=== PATIENT | female | born 2000 | race Caucasian/White ===

== ENCOUNTER 2019-05-06 15:17 | Inpatient (IN) ==
[2019-05-06] MEDS ORDERED: ONDANSETRON INJ 2 MG/ML 2 ML VIAL IV STA ×2 (16:05→21:04)
[2019-05-06] MEDS ORDERED: SODIUM CHLORIDE 0.9% 1000ML 1,000 ML IV SCH (16:15)
--- NOTE | 2019-05-06 16:37 | XRay Report ---
XR chest 1V portable CLINICAL HISTORY: Chest pain status post trauma COMPARISON STUDY: No previous studies for comparison. FINDINGS: The cardiac and mediastinal contours are normal. There is no evidence of focal pulmonary co nsolidation. There is no evidence of failure. No pleural effusions are visualized.[No pneumothorax is visualized. IMPRESSION: No active disease in the chest. Electronically signed by: Oliver Gilliland M.D. 05/06/2019 4:35 PM
--- NOTE | 2019-05-06 16:45 | CT Scan Report ---
CT OF THE HEAD WITHOUT CONTRAST CLINICAL HISTORY: Trauma. COMPARISON STUDY: No previous studies for comparison. CT DOSE: 537.48 mGy.cm TECHNIQUE: Helical axial images of the head were obtained without IV contrast. Automated exposure con trol was utilized for the study. A dose lowering technique was utilized adhering to the principles o f ALARA. FINDINGS: No acute intracranial hemorrhage, midline shift or mass effect is present. The ventricular system is unremarkable. The basilar cisterns are patent. No extra-axial collections are present. Ther e are no findings to suggest acute dural sinus thrombosis or acute territorial infarct. No chondral f racture is identified. Small amount of fluid within the left mastoid air cells is noted. IMPRESSION: 1. No acute intracranial findings. 2. No calvarial fracture. 3. Small amount of fluid within the left mastoid air cells. Electronically signed by: Osbaldo Castillo M.D. 05/06/2019 4:44 PM
[2019-05-06] MEDS ORDERED: LORazepam 2 MG/4 ML VIAL IV STA ×2 (17:08→21:53)
[2019-05-06 17:24] LABS: Albumin Level 3.1 gm/dl (3.4-5.0); Calcium 10.4 mg/dl (8.5-10.1); Creatinine Clr Calc Pharmacy 91.9 ml/min; Est GFR (African American) 94.4; Est GFR (Non-African American) 81.5; Potassium 3.5 mmol/L (3.5-5.1)
[2019-05-06 17:27] LABS: Albumin Globulin Ratio 0.8 (0.9-2); Bilirubin,Total 1.7 mg/dl (0.2-1); Globulin 4.1 gm/dl (2.5-4.0); Total Protein 7.2 gm/dl (6.4-8.2)
[2019-05-06] MEDS ORDERED: SODIUM CHLORIDE 0.9% 1000ML 1,000 ML IV ONE (17:29)
[2019-05-06 17:32] LABS: Pregnancy Test, Serum Negative (Negative)
[2019-05-06 17:35] LABS: Hematocrit (blood only) 40.1 % (37-47); Hemoglobin 14.9 g/dL (12.0-16.0); Mean Corpuscular Hgb Conc 37.2 g/dL (32-36); Mean Corpuscular Volume 83.5 fL (80-100); Platelet Count 386 K/uL (130-400); RDW Coefficient of Variation 12.6 % (11.5-14.5); White Blood Count 24.92 K/uL (4.8-10.8)
[2019-05-06 17:36] LABS: Basophils # (auto) 0.01 K/uL (0-0.2); Echinocytes 1+; Immature Granulocytes % (auto) 0.4 %; Lymphocytes # (auto) 1.29 K/uL (1.2-3.4); Lymphocytes % (auto) 5.2 %; Monocytes # (auto) 1.74 K/uL (0.11-0.59); Neutrophils # (auto) 21.78 K/uL (1.4-6.5); Neutrophils % (auto) 87.4 %
[2019-05-06] MEDS ORDERED: BACITRACIN OINT 15 GM TUBE ONE (20:06)
[2019-05-06 22:05] LABS: Appearance Urine Clear (Clear); Bacteria Urine Automated Negative (Negative); Bilirubin Urine Negative (Negative); Blood Urine 1+ (Negative); Color Urine Yellow; Glucose Urine UA Negative (Negative); Leukocyte Esterase Urine Negative (Negative); Nitrite Urine Negative (Negative); Protein Urine Negative (Negative); RBC Urine Automated 0-4 /hpf (0-4); Urobilinogen Urine Negative (Negative)
[2019-05-06 22:09] LABS: Ketones Urine 3+ (Negative)
[2019-05-06 22:12] LABS: Amphetamines+Metham, Urine Neg (Neg); Barbiturates, Urine Neg (Neg); Benzodiazepine, Urine Neg (Neg); Cocaine, Urine Neg (Neg); MDMA (Ecstacy), Urine Neg (Neg); Methadone, Urine Neg (Neg); Opiate, Urine Neg (Neg); Phencyclidine, Urine Neg (Neg)
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
[2019-05-06] MEDS ORDERED: DIPHTHERIA/TETANUS/PERTUSSIS 0.5 ML SYR/VIAL IM ONE (23:37)
[2019-05-06] MEDS ORDERED: SODIUM CHLORIDE 0.9% 1000ML 2,000 ML IV ONE (23:37)
[2019-05-06 23:49] LABS: Thyroid Stimulating Hormone 0.449 uIu/ml (0.300-4.500)
[2019-05-07] MEDS ORDERED: PIPERACILL/TAZOBAC CONSULT ACTIVE PRN (01:13)
[2019-05-07] MEDS ORDERED: PIPERACILLIN/TAZOBACTAM 3.375 GM in DEXTROSE 5% 100 ML IV ONE (01:13)
[2019-05-07] MEDS ORDERED: VANCOMYCIN HCL 1,000 MG in SODIUM CHLORIDE 0.9% 250 ML IV SCH (01:13)
[2019-05-07] MEDS ORDERED: VANCOMYCIN CONSULT ACTIVE PRN (01:13)
[2019-05-07] MEDS ORDERED: ICU PROTOCOL FOR HYPERGLYCEMIA PRN (01:13)
[2019-05-07 01:14] LABS: Base Excess VBG -6.3 mEq/L; pH VBG 7.41 (7.36-7.41)
[2019-05-07 01:17] LABS: D Dimer 3730 ug/L FEU (0-500)
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
[2019-05-07] MEDS ORDERED: VANCOMYCIN HCL 2,000 MG in SODIUM CHLORIDE 0.9% 500 ML IV ONE (02:15)
[2019-05-07 02:27] LABS: Basophils # (auto) 0.01 K/uL (0-0.2); Basophils % (auto) 0.1 %; Hematocrit (blood only) 33.4 % (37-47); Hemoglobin 12.2 g/dL (12.0-16.0); Immature Granulocytes # (auto) 0.08 K/uL (0.00-0.02); Immature Granulocytes % (auto) 0.4 %; Lymphocytes # (auto) 0.87 K/uL (1.2-3.4); Lymphocytes % (auto) 4.4 %; Mean Corpuscular Hemoglobin 31.1 pg (25-34); Mean Corpuscular Hgb Conc 36.5 g/dL (32-36); Mean Corpuscular Volume 85.2 fL (80-100); Mean Platelet Volume 11.3 fL (7.4-10.4); Monocytes # (auto) 1.95 K/uL (0.11-0.59); Monocytes % (auto) 9.8 %; Neutrophils # (auto) 17.08 K/uL (1.4-6.5); Neutrophils % (auto) 85.3 %; Platelet Count 297 K/uL (130-400); RDW Coefficient of Variation 12.7 % (11.5-14.5); RDW Standard Deviation 38.6 fL (36.4-46.3); Red Blood Count 3.92 M/uL (4.2-5.4); White Blood Count 19.99 K/uL (4.8-10.8)
[2019-05-07 02:54] LABS: Prothrombin Time 10.6 Seconds (9.0-12.0)
[2019-05-07 03:12] LABS: Acetaminophen 4 ug/ml (10-30); Lyme Ab IgG w/WB Rflx Negative (Negative); Lyme Ab IgM w/WB Rflx Negative (Negative); Salicylate < 1.7 mg/dl (2.8-20)
[2019-05-07 03:13] LABS: Chloride Random Urine < 10 mmol/L; Sodium Random Urine 9 mmol/L
[2019-05-07 03:23] LABS: Alanine Aminotransferase 71 U/L (12-78); Albumin Level 2.4 gm/dl (3.4-5.0); Aspartate Aminotransferase 116 U/L (15-37); BUN Creatinine Ratio 44.3 (10-20); Blood Urea Nitrogen 29 mg/dl (7-18); Calcium 7.9 mg/dl (8.5-10.1); Carbon Dioxide 16 mmol/L (21-32); Chloride 101 mmol/L (98-107); Creatinine Clr Calc Pharmacy 147.3 ml/min; Est GFR (African American) 146.4; Est GFR (Non-African American) 126.3; Glucose 84 mg/dl (70-99); Sodium 133 mmol/L (136-145)
[2019-05-07 03:34] LABS: Hepatitis B Surface Antigen Neg (Neg)
[2019-05-07 03:36] LABS: Albumin Globulin Ratio 0.7 (0.9-2); Alkaline Phosphatase 96 U/L (45-117); Bilirubin,Total 0.9 mg/dl (0.2-1); Creatine Kinase 1630 U/L (26-192); Globulin 3.3 gm/dl (2.5-4.0); Total Protein 5.7 gm/dl (6.4-8.2); Troponin I < 0.015 ng/ml (0-0.045)
[2019-05-07 03:42] LABS: Fibrinogen 433 mg/dl (184-400)
--- NOTE | 2019-05-07 03:56 | History & Physical Report ---
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 (45-117) U/L Ammonia (11-32) umol/L Lactate Dehydrogenase (84-246) U/L Total Creatine Kinase (26-192) U/L Troponin I (0-0.045) ng/ml Total Protein (6.4-8.2) gm/dl Albumin (3.4-5.0) gm/dl Globulin (2.5-4.0) gm/dl Albumin/Globulin Ratio (0.9-2) Serotonin Procalcitonin (0-0.5) ng/ml TSH (0.300-4.500) uIu/ml HCG, Qual (Negative) Urine Color Urine Appearance (Clear) Urine pH (4.5-7.5) Ur Specific [place] (1.000-1.030) Urine Protein (Negative) Urine Glucose (UA) (Negative) Urine Ketones (Negative) Urine Blood (Negative) Urine Nitrite (Negative) Urine Bilirubin (Negative) Urine Urobilinogen (Negative) Ur Leukocyte Esterase (Negative) Urine WBC (Auto) (0-5) /hpf Urine RBC (Auto) (0-4) /hpf U Hyaline Cast (Auto) (0-5) /lpf U Epithel Cells (Auto) (0-5) /lpf Urine Bacteria (Auto) (Negative) Urine Osmolality (500-800) mOsm/kg Ur Random Sodium mmol/L Ur Random Chloride mmol/L Nasal Screen MRSA (PCR) Pending Salicylates (2.8-20) mg/dl Urine Opiates Screen (Neg) Ur Methadone, Qual (Neg) Acetaminophen (10-30) ug/ml Urine Barbiturates (Neg) Ur Phencyclidine (PCP) (Neg) U Amphetamin/Meth Scrn (Neg) MDMA (Ecstasy) Screen (Neg) U Benzodiazepines Scrn (Neg) [place] (0.6-1.2) mmol/L Ur Cocaine Metabolite (Neg) U Marijuana (THC) Screen (Neg) Ethyl Alcohol mg/dL (0-3) mg/dl Babesia microti IgG Ab Babesia microti IgM Ab Babesia Interpretation Lyme Disease IgG Ab (Negative) Lyme Disease IgM Ab (Negative) C.trachomatis RNA Hepatitis A IgM Ab Hep Bs Antigen (Neg) Hep B Core IgM Ab Hepatitis C Antibody (Neg) N.gonorrhoeae RNA 05/07/19 05/07/19 05/07/19 Range/Units 00:45 00:45 00:45 WBC (4.8-10.8) K/uL RBC (4.2-5.4) M/uL Hgb (12.0-16.0) g/dL Hct (37-47) % MCV (80-100) fL MCH (25-34) pg MCHC (32-36) g/dL RDW Std Deviation (36.4-46.3) fL RDW Coeff of Ilene (11.5-14.5) % Plt Count (130-400) K/uL MPV (7.4-10.4) fL Immature Gran % (Auto) % Neut % (Auto) % Lymph % (Auto) % [place] % (Auto) % Eos % (Auto) % Baso % (Auto) % Immature Gran # (Auto) (0.00-0.02) K/uL Neut # (Auto) (1.4-6.5) K/uL Lymph # (Auto) (1.2-3.4) K/uL [place] # (Auto) (0.11-0.59) K/uL Eos # (Auto) (0-0.5) K/uL Baso # (Auto) (0-0.2) K/uL Echinocytes PT (9.0-12.0) Seconds INR (0.9-1.1) Fibrinogen (184-400) mg/dl D-Dimer 3730 H* (0-500) ug/L FEU VBG pH 7.41 (7.36-7.41) VBG pCO2 28 L (38-50) mmHg VBG pO2 49 mmHg VBG HCO3 17 mmol/L VBG O2 Saturation 83.0 % VBG Base Excess -6.3 mEq/L Barometric Pressure 734.8 mm/Hg Sodium (136-145) mmol/L Potassium (3.5-5.1) mmol/L Chloride (98-107) mmol/L Carbon Dioxide (21-32) mmol/L Anion Gap (3-11) BUN (7-18) mg/dl Creatinine (0.6-1.2) mg/dl Est Cr Clr Drug Dosing ml/min Est GFR ( Amer) Est GFR (Non-Af Amer) BUN/Creatinine Ratio (10-20) Glucose (70-99) mg/dl POC Glucose (70-99) Osmolality (280-300) mOsm/kg Lactate (0.4-2.0) mmol/L Calcium (8.5-10.1) mg/dl Magnesium (1.8-2.4) mg/dl Total Bilirubin (0.2-1) mg/dl AST (15-37) U/L ALT (12-78) U/L Alkaline Phosphatase (45-117) U/L Ammonia 20.0 (11-32) umol/L Lactate Dehydrogenase (84-246) U/L Total Creatine Kinase (26-192) U/L Troponin I (0-0.045) ng/ml Total Protein (6.4-8.2) gm/dl Albumin (3.4-5.0) gm/dl Globulin (2.5-4.0) gm/dl Albumin/Globulin Ratio (0.9-2) Serotonin Procalcitonin (0-0.5) ng/ml TSH (0.300-4.500) uIu/ml HCG, Qual (Negative) Urine Color Urine Appearance (Clear) Urine pH (4.5-7.5) Ur Specific [place] (1.000-1.030) Urine Protein (Negative) Urine Glucose (UA) (Negative) Urine Ketones (Negative) Urine Blood (Negative) Urine Nitrite (Negative) Urine Bilirubin (Negative) Urine Urobilinogen (Negative) Ur Leukocyte Esterase (Negative) Urine WBC (Auto) (0-5) /hpf Urine RBC (Auto) (0-4) /hpf U Hyaline Cast (Auto) (0-5) /lpf U Epithel Cells (Auto) (0-5) /lpf Urine Bacteria (Auto) (Negative) Urine Osmolality (500-800) mOsm/kg Ur Random Sodium mmol/L Ur Random Chloride mmol/L Nasal Screen MRSA (PCR) Salicylates (2.8-20) mg/dl Urine Opiates Screen (Neg) Ur Methadone, Qual (Neg) Acetaminophen (10-30) ug/ml Urine Barbiturates (Neg) Ur Phencyclidine (PCP) (Neg) U Amphetamin/Meth Scrn (Neg) MDMA (Ecstasy) Screen (Neg) U Benzodiazepines Scrn (Neg) [address] [place] (0.6-1.2) mmol/L Ur Cocaine Metabolite (Neg) U Marijuana (THC) Screen (Neg) Ethyl Alcohol mg/dL (0-3) mg/dl Babesia microti IgG Ab Babesia microti IgM Ab Babesia Interpretation Lyme Disease IgG Ab (Negative) Lyme Disease IgM Ab (Negative) C.trachomatis RNA Hepatitis A IgM Ab Hep Bs Antigen (Neg) Hep B Core IgM Ab Hepatitis C Antibody (Neg) N.gonorrhoeae RNA 05/06/19 05/06/19 05/06/19 Range/Units 21:34 21:34 21:34 WBC (4.8-10.8) K/uL RBC (4.2-5.4) M/uL Hgb (12.0-16.0) g/dL Hct (37-47) % MCV (80-100) fL MCH (25-34) pg MCHC (32-36) g/dL RDW Std Deviation (36.4-46.3) fL RDW Coeff of Ilene (11.5-14.5) % Plt Count (130-400) K/uL MPV (7.4-10.4) fL Immature Gran % (Auto) % Neut % (Auto) % Lymph % (Auto) % [place] % (Auto) % Eos % (Auto) % Baso % (Auto) % Immature Gran # (Auto) (0.00-0.02) K/uL Neut # (Auto) (1.4-6.5) K/uL Lymph # (Auto) (1.2-3.4) K/uL [place] # (Auto) (0.11-0.59) K/uL Eos # (Auto) (0-0.5) K/uL Baso # (Auto) (0-0.2) K/uL Echinocytes PT (9.0-12.0) Seconds INR (0.9-1.1) Fibrinogen (184-400) mg/dl D-Dimer (0-500) ug/L FEU VBG pH (7.36-7.41) VBG pCO2 (38-50) mmHg VBG pO2 mmHg VBG HCO3 mmol/L VBG O2 Saturation % VBG Base Excess mEq/L Barometric Pressure mm/Hg Sodium (136-145) mmol/L Potassium (3.5-5.1) mmol/L Chloride (98-107) mmol/L Carbon Dioxide (21-32) mmol/L Anion Gap (3-11) BUN (7-18) mg/dl Creatinine (0.6-1.2) mg/dl Est Cr Clr Drug Dosing ml/min Est GFR ( Amer) Est GFR (Non-Af Amer) BUN/Creatinine Ratio (10-20) Glucose (70-99) mg/dl POC Glucose (70-99) Osmolality (280-300) mOsm/kg Lactate (0.4-2.0) mmol/L Calcium (8.5-10.1) mg/dl Magnesium (1.8-2.4) mg/dl Total Bilirubin (0.2-1) mg/dl AST (15-37) U/L ALT (12-78) U/L Alkaline Phosphatase (45-117) U/L Ammonia (11-32) umol/L Lactate Dehydrogenase (84-246) U/L Total Creatine Kinase (26-192) U/L Troponin I (0-0.045) ng/ml Total Protein (6.4-8.2) gm/dl Albumin (3.4-5.0) gm/dl Globulin (2.5-4.0) gm/dl Albumin/Globulin Ratio (0.9-2) Serotonin Procalcitonin (0-0.5) ng/ml TSH (0.300-4.500) uIu/ml HCG, Qual (Negative) Urine Color Yellow Urine Appearance Clear (Clear) Urine pH 6.0 (4.5-7.5) Ur Specific [place] 1.020 (1.000-1.030) Urine Protein Negative (Negative) Urine Glucose (UA) Negative (Negative) Urine Ketones 3+ H (Negative) Urine Blood 1+ H (Negative) Urine Nitrite Negative (Negative) Urine Bilirubin Negative (Negative) Urine Urobilinogen Negative (Negative) Ur Leukocyte Esterase Negative (Negative) Urine WBC (Auto) 1-5 (0-5) /hpf Urine RBC (Auto) 0-4 (0-4) /hpf U Hyaline Cast (Auto) 5-10 H (0-5) /lpf U Epithel Cells (Auto) 10-20 H (0-5) /lpf Urine Bacteria (Auto) Negative (Negative) Urine Osmolality 553 (500-800) mOsm/kg Ur Random Sodium 9 mmol/L Ur Random Chloride < 10 mmol/L Nasal Screen MRSA (PCR) Salicylates (2.8-20) mg/dl Urine Opiates Screen (Neg) Ur Methadone, Qual (Neg) Acetaminophen (10-30) ug/ml Urine Barbiturates (Neg) Ur Phencyclidine (PCP) (Neg) U Amphetamin/Meth Scrn (Neg) MDMA (Ecstasy) Screen (Neg) U Benzodiazepines Scrn (Neg) [address] [place] (0.6-1.2) mmol/L Ur Cocaine Metabolite (Neg) U Marijuana (THC) Screen (Neg) Ethyl Alcohol mg/dL (0-3) mg/dl Babesia microti IgG Ab Babesia microti IgM Ab Babesia Interpretation Lyme Disease IgG Ab (Negative) Lyme Disease IgM Ab (Negative) C.trachomatis RNA Hepatitis A IgM Ab Hep Bs Antigen (Neg) Hep B Core IgM Ab Hepatitis C Antibody (Neg) N.gonorrhoeae RNA 05/06/19 05/06/19 05/06/19 Range/Units 21:34 16:52 16:48 WBC (4.8-10.8) K/uL RBC (4.2-5.4) M/uL Hgb (12.0-16.0) g/dL Hct (37-47) % MCV (80-100) fL MCH (25-34) pg MCHC (32-36) g/dL RDW Std Deviation (36.4-46.3) fL RDW Coeff of Ilene (11.5-14.5) % Plt Count (130-400) K/uL MPV (7.4-10.4) fL Immature Gran % (Auto) % Neut % (Auto) % Lymph % (Auto) % [place] % (Auto) % Eos % (Auto) % Baso % (Auto) % Immature Gran # (Auto) (0.00-0.02) K/uL Neut # (Auto) (1.4-6.5) K/uL Lymph # (Auto) (1.2-3.4) K/uL [place] # (Auto) (0.11-0.59) K/uL Eos # (Auto) (0-0.5) K/uL Baso # (Auto) (0-0.2) K/uL Echinocytes PT (9.0-12.0) Seconds INR (0.9-1.1) Fibrinogen (184-400) mg/dl D-Dimer (0-500) ug/L FEU VBG pH (7.36-7.41) VBG pCO2 (38-50) mmHg VBG pO2 mmHg VBG HCO3 mmol/L VBG O2 Saturation % VBG Base Excess mEq/L Barometric Pressure mm/Hg Sodium (136-145) mmol/L Potassium (3.5-5.1) mmol/L Chloride (98-107) mmol/L Carbon Dioxide (21-32) mmol/L Anion Gap (3-11) BUN (7-18) mg/dl Creatinine (0.6-1.2) mg/dl Est Cr Clr Drug Dosing ml/min Est GFR ( Amer) Est GFR (Non-Af Amer) BUN/Creatinine Ratio (10-20) Glucose (70-99) mg/dl POC Glucose (70-99) Osmolality 273 L (280-300) mOsm/kg Lactate 2.6 H* (0.4-2.0) mmol/L Calcium (8.5-10.1) mg/dl Magnesium (1.8-2.4) mg/dl Total Bilirubin (0.2-1) mg/dl AST (15-37) U/L ALT (12-78) U/L Alkaline Phosphatase (45-117) U/L Ammonia (11-32) umol/L Lactate Dehydrogenase (84-246) U/L Total Creatine Kinase (26-192) U/L Troponin I (0-0.045) ng/ml Total Protein (6.4-8.2) gm/dl Albumin (3.4-5.0) gm/dl Globulin (2.5-4.0) gm/dl Albumin/Globulin Ratio (0.9-2) Serotonin Procalcitonin (0-0.5) ng/ml TSH (0.300-4.500) uIu/ml HCG, Qual (Negative) Urine Color Urine Appearance (Clear) Urine pH (4.5-7.5) Ur Specific [place] (1.000-1.030) Urine Protein (Negative) Urine Glucose (UA) (Negative) Urine Ketones (Negative) Urine Blood (Negative) Urine Nitrite (Negative) Urine Bilirubin (Negative) Urine Urobilinogen (Negative) Ur Leukocyte Esterase (Negative) Urine WBC (Auto) (0-5) /hpf Urine RBC (Auto) (0-4) /hpf U Hyaline Cast (Auto) (0-5) /lpf U Epithel Cells (Auto) (0-5) /lpf Urine Bacteria (Auto) (Negative) Urine Osmolality (500-800) mOsm/kg Ur Random Sodium mmol/L Ur Random Chloride mmol/L Nasal Screen MRSA (PCR) Salicylates (2.8-20) mg/dl Urine Opiates Screen Neg (Neg) Ur Methadone, Qual Neg (Neg) Acetaminophen (10-30) ug/ml Urine Barbiturates Neg (Neg) Ur Phencyclidine (PCP) Neg (Neg) U Amphetamin/Meth Scrn Neg (Neg) MDMA (Ecstasy) Screen Neg (Neg) U Benzodiazepines Scrn Neg (Neg) [address] [place] [address] [place] (0.6-1.2) mmol/L Ur Cocaine Metabolite Neg (Neg) U Marijuana (THC) Screen Neg (Neg) Ethyl Alcohol mg/dL (0-3) mg/dl Babesia microti IgG Ab Babesia microti IgM Ab Babesia Interpretation Lyme Disease IgG Ab (Negative) Lyme Disease IgM Ab (Negative) C.trachomatis RNA Hepatitis A IgM Ab Hep Bs Antigen (Neg) Hep B Core IgM Ab Hepatitis C Antibody (Neg) N.gonorrhoeae RNA 05/06/19 05/06/19 05/06/19 Range/Units 16:48 16:48 16:48 WBC (4.8-10.8) K/uL RBC (4.2-5.4) M/uL Hgb (12.0-16.0) g/dL Hct (37-47) % MCV (80-100) fL MCH (25-34) pg MCHC (32-36) g/dL RDW Std Deviation (36.4-46.3) fL RDW Coeff of Ilene (11.5-14.5) % Plt Count (130-400) K/uL MPV (7.4-10.4) fL Immature Gran % (Auto) % Neut % (Auto) % Lymph % (Auto) % [place] % (Auto) % Eos % (Auto) % Baso % (Auto) % Immature Gran # (Auto) (0.00-0.02) K/uL Neut # (Auto) (1.4-6.5) K/uL Lymph # (Auto) (1.2-3.4) K/uL [place] # (Auto) (0.11-0.59) K/uL Eos # (Auto) (0-0.5) K/uL Baso # (Auto) (0-0.2) K/uL Echinocytes PT (9.0-12.0) Seconds INR (0.9-1.1) Fibrinogen (184-400) mg/dl D-Dimer (0-500) ug/L FEU VBG pH (7.36-7.41) VBG pCO2 (38-50) mmHg VBG pO2 mmHg VBG HCO3 mmol/L VBG O2 Saturation % VBG Base Excess mEq/L Barometric Pressure mm/Hg Sodium (136-145) mmol/L Potassium (3.5-5.1) mmol/L Chloride (98-107) mmol/L Carbon Dioxide (21-32) mmol/L Anion Gap (3-11) BUN (7-18) mg/dl Creatinine (0.6-1.2) mg/dl Est Cr Clr Drug Dosing ml/min Est GFR ( Amer) Est GFR (Non-Af Amer) BUN/Creatinine Ratio (10-20) Glucose (70-99) mg/dl POC Glucose (70-99) Osmolality (280-300) mOsm/kg Lactate (0.4-2.0) mmol/L Calcium (8.5-10.1) mg/dl Magnesium (1.8-2.4) mg/dl Total Bilirubin (0.2-1) mg/dl AST (15-37) U/L ALT (12-78) U/L Alkaline Phosphatase (45-117) U/L Ammonia (11-32) umol/L Lactate Dehydrogenase (84-246) U/L Total Creatine Kinase 2488 H (26-192) U/L Troponin I (0-0.045) ng/ml Total Protein (6.4-8.2) gm/dl Albumin (3.4-5.0) gm/dl Globulin (2.5-4.0) gm/dl Albumin/Globulin Ratio (0.9-2) Serotonin Procalcitonin (0-0.5) ng/ml TSH 0.449 (0.300-4.500) uIu/ml HCG, Qual Negative (Negative) Urine Color Urine Appearance (Clear) Urine pH (4.5-7.5) Ur Specific [place] (1.000-1.030) Urine Protein (Negative) Urine Glucose (UA) (Negative) Urine Ketones (Negative) Urine Blood (Negative) Urine Nitrite (Negative) Urine Bilirubin (Negative) Urine Urobilinogen (Negative) Ur Leukocyte Esterase (Negative) Urine WBC (Auto) (0-5) /hpf Urine RBC (Auto) (0-4) /hpf U Hyaline Cast (Auto) (0-5) /lpf U Epithel Cells (Auto) (0-5) /lpf Urine Bacteria (Auto) (Negative) Urine Osmolality (500-800) mOsm/kg Ur Random Sodium mmol/L Ur Random Chloride mmol/L Nasal Screen MRSA (PCR) Salicylates (2.8-20) mg/dl Urine Opiates Screen (Neg) Ur Methadone, Qual (Neg) Acetaminophen (10-30) ug/ml Urine Barbiturates (Neg) Ur Phencyclidine (PCP) (Neg) U Amphetamin/Meth Scrn (Neg) MDMA (Ecstasy) Screen (Neg) U Benzodiazepines Scrn (Neg) [address] [place] 0.5 L (0.6-1.2) mmol/L Ur Cocaine Metabolite (Neg) U Marijuana (THC) Screen (Neg) Ethyl Alcohol mg/dL (0-3) mg/dl Babesia microti IgG Ab Babesia microti IgM Ab Babesia Interpretation Lyme Disease IgG Ab (Negative) Lyme Disease IgM Ab (Negative) C.trachomatis RNA Hepatitis A IgM Ab Hep Bs Antigen (Neg) Hep B Core IgM Ab Hepatitis C Antibody (Neg) N.gonorrhoeae RNA 05/06/19 05/06/19 05/06/19 Range/Units 16:48 16:48 16:48 WBC 24.92 H (4.8-10.8) K/uL RBC 4.80 (4.2-5.4) M/uL Hgb 14.9 (12.0-16.0) g/dL Hct 40.1 (37-47) % MCV 83.5 (80-100) fL MCH 31.0 (25-34) pg MCHC 37.2 H (32-36) g/dL RDW Std Deviation 38.0 (36.4-46.3) fL RDW Coeff of Ilene 12.6 (11.5-14.5) % Plt Count 386 (130-400) K/uL MPV 12.0 H (7.4-10.4) fL Immature Gran % (Auto) 0.4 % Neut % (Auto) 87.4 % Lymph % (Auto) 5.2 % [place] % (Auto) 7.0 % Eos % (Auto) 0.0 % Baso % (Auto) 0.0 % Immature Gran # (Auto) 0.10 H (0.00-0.02) K/uL Neut # (Auto) 21.78 H (1.4-6.5) K/uL Lymph # (Auto) 1.29 (1.2-3.4) K/uL [place] # (Auto) 1.74 H (0.11-0.59) K/uL Eos # (Auto) 0.00 (0-0.5) K/uL Baso # (Auto) 0.01 (0-0.2) K/uL Echinocytes 1+ PT (9.0-12.0) Seconds INR (0.9-1.1) Fibrinogen (184-400) mg/dl D-Dimer (0-500) ug/L FEU VBG pH (7.36-7.41) VBG pCO2 (38-50) mmHg VBG pO2 mmHg VBG HCO3 mmol/L VBG O2 Saturation % VBG Base Excess mEq/L Barometric Pressure mm/Hg Sodium 122 L (136-145) mmol/L Potassium 3.5 (3.5-5.1) mmol/L Chloride 86 L (98-107) mmol/L Carbon Dioxide 14 L (21-32) mmol/L Anion Gap 22.0 H (3-11) BUN 59 H (7-18) mg/dl Creatinine 0.99 (0.6-1.2) mg/dl Est Cr Clr Drug Dosing 91.9 ml/min Est GFR ( Amer) 94.4 Est GFR (Non-Af Amer) 81.5 BUN/Creatinine Ratio 60.0 H (10-20) Glucose 92 (70-99) mg/dl POC Glucose (70-99) Osmolality (280-300) mOsm/kg Lactate (0.4-2.0) mmol/L Calcium 10.4 H (8.5-10.1) mg/dl Magnesium (1.8-2.4) mg/dl Total Bilirubin 1.7 H (0.2-1) mg/dl AST 150 H (15-37) U/L ALT 89 H (12-78) U/L Alkaline Phosphatase 147 H (45-117) U/L Ammonia (11-32) umol/L Lactate Dehydrogenase (84-246) U/L Total Creatine Kinase (26-192) U/L Troponin I (0-0.045) ng/ml Total Protein 7.2 (6.4-8.2) gm/dl Albumin 3.1 L (3.4-5.0) gm/dl Globulin 4.1 H (2.5-4.0) gm/dl Albumin/Globulin Ratio 0.8 L (0.9-2) Serotonin Procalcitonin (0-0.5) ng/ml TSH (0.300-4.500) uIu/ml HCG, Qual (Negative) Urine Color Urine Appearance (Clear) Urine pH (4.5-7.5) Ur Specific [place] (1.000-1.030) Urine Protein (Negative) Urine Glucose (UA) (Negative) Urine Ketones (Negative) Urine Blood (Negative) Urine Nitrite (Negative) Urine Bilirubin (Negative) Urine Urobilinogen (Negative) Ur Leukocyte Esterase (Negative) Urine WBC (Auto) (0-5) /hpf Urine RBC (Auto) (0-4) /hpf U Hyaline Cast (Auto) (0-5) /lpf U Epithel Cells (Auto) (0-5) /lpf Urine Bacteria (Auto) (Negative) Urine Osmolality (500-800) mOsm/kg Ur Random Sodium mmol/L Ur Random Chloride mmol/L Nasal Screen MRSA (PCR) Salicylates (2.8-20) mg/dl Urine Opiates Screen (Neg) Ur Methadone, Qual (Neg) Acetaminophen (10-30) ug/ml Urine Barbiturates (Neg) Ur Phencyclidine (PCP) (Neg) U Amphetamin/Meth Scrn (Neg) MDMA (Ecstasy) Screen (Neg) U Benzodiazepines Scrn (Neg) [address] [place] [address] [place] (0.6-1.2) mmol/L Ur Cocaine Metabolite (Neg) U Marijuana (THC) Screen (Neg) Ethyl Alcohol mg/dL < 3.0 (0-3) mg/dl Babesia microti IgG Ab Babesia microti IgM Ab Babesia Interpretation Lyme Disease IgG Ab (Negative) Lyme Disease IgM Ab (Negative) C.trachomatis RNA Hepatitis A IgM Ab Hep Bs Antigen (Neg) Hep B Core IgM Ab Hepatitis C Antibody (Neg) N.gonorrhoeae RNA 05/06/19 Range/Units 00:45 WBC (4.8-10.8) K/uL RBC (4.2-5.4) M/uL Hgb (12.0-16.0) g/dL Hct (37-47) % MCV (80-100) fL MCH (25-34) pg MCHC (32-36) g/dL RDW Std Deviation (36.4-46.3) fL RDW Coeff of Ilene (11.5-14.5) % Plt Count (130-400) K/uL MPV (7.4-10.4) fL Immature Gran % (Auto) % Neut % (Auto) % Lymph % (Auto) % [place] % (Auto) % Eos % (Auto) % Baso % (Auto) % Immature Gran # (Auto) (0.00-0.02) K/uL Neut # (Auto) (1.4-6.5) K/uL Lymph # (Auto) (1.2-3.4) K/uL [place] # (Auto) (0.11-0.59) K/uL Eos # (Auto) (0-0.5) K/uL Baso # (Auto) (0-0.2) K/uL Echinocytes PT (9.0-12.0) Seconds INR (0.9-1.1) Fibrinogen (184-400) mg/dl D-Dimer (0-500) ug/L FEU VBG pH (7.36-7.41) VBG pCO2 (38-50) mmHg VBG pO2 mmHg VBG HCO3 mmol/L VBG O2 Saturation % VBG Base Excess mEq/L Barometric Pressure mm/Hg Sodium (136-145) mmol/L Potassium (3.5-5.1) mmol/L Chloride (98-107) mmol/L Carbon Dioxide (21-32) mmol/L Anion Gap (3-11) BUN (7-18) mg/dl Creatinine (0.6-1.2) mg/dl Est Cr Clr Drug Dosing ml/min Est GFR ( Amer) Est GFR (Non-Af Amer) BUN/Creatinine Ratio (10-20) Glucose (70-99) mg/dl POC Glucose (70-99) Osmolality (280-300) mOsm/kg Lactate (0.4-2.0) mmol/L Calcium (8.5-10.1) mg/dl Magnesium (1.8-2.4) mg/dl Total Bilirubin (0.2-1) mg/dl AST (15-37) U/L ALT (12-78) U/L Alkaline Phosphatase (45-117) U/L Ammonia (11-32) umol/L Lactate Dehydrogenase (84-246) U/L Total Creatine Kinase (26-192) U/L Troponin I (0-0.045) ng/ml Total Protein (6.4-8.2) gm/dl Albumin (3.4-5.0) gm/dl Globulin (2.5-4.0) gm/dl Albumin/Globulin Ratio (0.9-2) Serotonin Procalcitonin 0.95 H (0-0.5) ng/ml TSH (0.300-4.500) uIu/ml HCG, Qual (Negative) Urine Color Urine Appearance (Clear) Urine pH (4.5-7.5) Ur Specific [place] (1.000-1.030) Urine Protein (Negative) Urine Glucose (UA) (Negative) Urine Ketones (Negative) Urine Blood (Negative) Urine Nitrite (Negative) Urine Bilirubin (Negative) Urine Urobilinogen (Negative) Ur Leukocyte Esterase (Negative) Urine WBC (Auto) (0-5) /hpf Urine RBC (Auto) (0-4) /hpf U Hyaline Cast (Auto) (0-5) /lpf U Epithel Cells (Auto) (0-5) /lpf Urine Bacteria (Auto) (Negative) Urine Osmolality (500-800) mOsm/kg Ur Random Sodium mmol/L Ur Random Chloride mmol/L Nasal Screen MRSA (PCR) Salicylates (2.8-20) mg/dl Urine Opiates Screen (Neg) Ur Methadone, Qual (Neg) Acetaminophen (10-30) ug/ml Urine Barbiturates (Neg) Ur Phencyclidine (PCP) (Neg) U Amphetamin/Meth Scrn (Neg) MDMA (Ecstasy) Screen (Neg) U Benzodiazepines Scrn (Neg) [address] (0.6-1.2) mmol/L Ur Cocaine Metabolite (Neg) U Marijuana (THC) Screen (Neg) Ethyl Alcohol mg/dL (0-3) mg/dl Babesia microti IgG Ab Babesia microti IgM Ab Babesia Interpretation Lyme Disease IgG Ab (Negative) Lyme Disease IgM Ab (Negative) C.trachomatis RNA Hepatitis A IgM Ab Hep Bs Antigen (Neg) Hep B Core IgM Ab Hepatitis C Antibody (Neg) N.gonorrhoeae RNA Code Status & VTE Plan Code Status full VTE Prophylaxis Plan VTE Prophylaxis will be ordered: Yes PG Care Time/CCT Total # of Minutes Spent Total Time Spent with Patient: Total time spent is greater than 50% in coordination of care (as documented) at patient's floor/unit and/or counseling patient: Resident Activity Tracking Resident Involvement: Resident Care Provided Care Provided: Adult Hospital Medicine (1) Rhabdomyolysis Rhabdomyolysis type: non-traumatic Qualified Code(s): M62.82 - Rhabdomyolysis
[2019-05-07 04:02] LABS: Hepatitis C IgG 13Yrs+Old_Rflx Neg (Neg)
[2019-05-07] MEDS: SODIUM CHLORIDE 0.9% 1000ML 1,000 ML IV SCH ×4 (04:03→04:23)
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
[2019-05-07] MEDS: SODIUM CHLORIDE 0.45 % 1,000 ML IV SCH ×2 (04:30→14:21)
[2019-05-07 06:55] LABS: BUN Creatinine Ratio 36.8 (10-20); Blood Urea Nitrogen 22 mg/dl (7-18); Calcium 8.3 mg/dl (8.5-10.1); Carbon Dioxide 16 mmol/L (21-32); Chloride 105 mmol/L (98-107); Creatinine Clr Calc Pharmacy 164.8 ml/min; Est GFR (African American) > 150.0; Glucose 96 mg/dl (70-99); Sodium 135 mmol/L (136-145)
--- NOTE | 2019-05-07 07:11 | Ultrasound Report ---
ABDOMINAL ULTRASOUND, RIGHT UPPER QUADRANT HISTORY: Abnormal LFTs.. COMPARISON: None. FINDINGS: Pancreas: Obscured by overlying bowel gas. Liver: Unremarkable. Gallbladder: Sludge within the gallbladder. No gallstones. No gallbladder wall thickening. CBD: 3.5 mm. Right kidney: No hydronephrosis. IMPRESSION: Gallbladder sludge. No gallbladder wall thickening or gallstones. Electronically signed by: Manish Jose M.D. 05/07/2019 7:10 AM
[2019-05-07] MEDS ORDERED: LACTATED RINGER'S 1,000 ML IV ONE ×2 (08:24→09:30)
[2019-05-07] MEDS: ENOXAPARIN INJ 40 MG/0.4 ML SYR SQ SCH (08:29)
[2019-05-07] MEDS: PIPERACILLIN/TAZOBACTAM 3.375 GM in DEXTROSE 5% 100 ML IV SCH ×3 (08:29→23:30)
[2019-05-07] MEDS: DOXYCYCLINE HYCLATE 100 MG in DEXTROSE 5% 100 ML IV SCH ×2 (08:30→20:19)
[2019-05-07] MEDS ORDERED: VANCOMYCIN HCL 1,250 MG in SODIUM CHLORIDE 0.9% 250 ML IV SCH (09:00)
[2019-05-07 10:32] LABS: BUN Creatinine Ratio 27.1 (10-20); Blood Urea Nitrogen 15 mg/dl (7-18); Calcium 7.8 mg/dl (8.5-10.1); Carbon Dioxide 18 mmol/L (21-32); Chloride 107 mmol/L (98-107); Creatinine Clr Calc Pharmacy 173.7 ml/min; Est GFR (African American) > 150.0; Est GFR (Non-African American) 133.3; Glucose 96 mg/dl (70-99); Potassium 4.2 mmol/L (3.5-5.1); Sodium 137 mmol/L (136-145)
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
--- NOTE | 2019-05-07 12:38 | History & Physical Bridge Note ---
Date of Service May 07, 2019 History & Physical Bridge Note Patient seen and examined today. No major changes from admission H&P that I can determine. She remains poorly responsive for me, mostly moaning in response to questions. Abrasions across her body, particularly in the hands/feet. On abx at present, though without a focal infectious etiology. Seen by psych and appreciate recs.
--- NOTE | 2019-05-07 13:25 | Pharmacy Report ---
Pharmacy Abx Initial Consult - Date of Service May 07, 2019 - Pharmacy Dosing Scope Date of Consult: 05/07 Consultation requested by: Dr. Hamilton Pharmacy is consulted to initiate vancomycin/zosyn IV/PO dosing therapy, order appropriate labs and adjust drug dose/frequency. - Subjective The patient is a 19 year old F admitted on 05/07/19 00:33. - Objective Height: 5 ft 6 in Weight: 84.1 kg Vital Signs (Past 12hrs): Vital Signs Temp Pulse Resp BP Pulse Ox 05/07/19 10:00 123 H 16 113/50 L 99 05/07/19 09:00 132 H 18 100/59 L 100 05/07/19 08:00 116 H 16 105/58 L 100 05/07/19 07:00 37.2 C 138 H 16 94/47 L 99 05/07/19 06:30 129 H 100 05/07/19 06:15 127 H 100 05/07/19 06:01 126 H 99/68 L 100 05/07/19 05:59 127 H 92/60 L 100 05/07/19 05:45 125 H 100 05/07/19 05:30 127 H 100 05/07/19 05:15 127 H 100 05/07/19 05:02 126 H 95/52 L 100 05/07/19 05:00 119 H 100 05/07/19 04:45 123 H 99 05/07/19 04:30 125 H 100 05/07/19 04:15 111 H 100 05/07/19 04:01 123 H 112/64 99 05/07/19 04:00 36.7 C 125 H 98 05/07/19 03:45 131 H 99 05/07/19 03:30 126 H 97 05/07/19 03:20 133 H 107/87 100 05/07/19 03:15 129 H 99 05/07/19 03:00 126 H 100 05/07/19 02:45 126 H 99 05/07/19 02:30 133 H 99 05/07/19 02:15 138 H 100 05/07/19 02:00 139 H 100 05/07/19 01:45 137 H 98 05/07/19 01:30 98 05/07/19 01:23 132 H 24 100 05/07/19 01:22 140 H 126/85 05/07/19 01:19 37.1 C 142 H Lab Results (24hrs): Laboratory Tests (24 Hours) 05/07/19 05/07/19 05/07/19 09:42 06:09 03:02 WBC Neut # (Auto) Creatinine 0.56 L 0.59 L Cancelled Est Cr Clr Drug Dosing 173.7 164.8 Cancelled Total Creatine Kinase Procalcitonin 05/07/19 05/07/19 05/06/19 01:52 01:52 16:48 WBC 19.99 H Neut # (Auto) 17.08 H Creatinine 0.66 D Est Cr Clr Drug Dosing 147.3 Total Creatine Kinase 1630 H 2488 H Procalcitonin 05/06/19 05/06/19 05/06/19 16:48 16:48 00:45 WBC 24.92 H Neut # (Auto) 21.78 H Creatinine 0.99 Est Cr Clr Drug Dosing 91.9 Total Creatine Kinase Procalcitonin 0.95 H Micro Results: 05/07/19 01:52 Blood Parasites Smear - Final Blood 05/07/19 03:02 Aerobic Blood Culture - Pending Blood Anaerobic Blood Culture - Pending 05/07/19 03:04 Aerobic Blood Culture - Pending Blood Anaerobic Blood Culture - Pending - Assessment & Plan Assessment 19 year old F with history of bipolar disorder reported to ED [place] being [place]. Patient afebrile, leukoctyosis 19.9, tachycardic, SBP 95-110, with multiple abrasions. Vancomycin/zosyn started empirically for possible infection, doxycycline also started for possible tick exposure. Patient currently moaning in response to questions per reports. Blood cultures pending, preliminary blood parasite smear had shown no parasites. ?infectious etiology, may be able to de-escalate or monitor off antibiotics depending on clinical status. Plan vancomycin for treatment of ?SST Vancomycin IV * Estimated PK Parameters: Vdf 0.7 Koffi 0.104 hr-1, t1/2 6.6 hr * Loading dose: 2000 mg (24 mg/kg) * Maintenance dose: 1250 mg IV (15 mg/kg) every 8 hours * Goal trough level 15-20 mcg/mL * Trough ordered for 05/08 @ 0830 Piperacillin/tazobactam * 3.375 g bolus administered over 30 minutes, then 3.375 g IV extended infusion every 8 hours for CrCl greater than 20 mL/min Pharmacy will continue to follow and will adjust dose/frequency as necessary. Thank you.
[2019-05-07 14:22] LABS: BUN Creatinine Ratio 20.3 (10-20); Blood Urea Nitrogen 10 mg/dl (7-18); Calcium 8.1 mg/dl (8.5-10.1); Carbon Dioxide 20 mmol/L (21-32); Chloride 108 mmol/L (98-107); Est GFR (African American) > 150.0; Est GFR (Non-African American) 136.6; Glucose 81 mg/dl (70-99); Potassium 3.9 mmol/L (3.5-5.1); Sodium 138 mmol/L (136-145)
[2019-05-07] MEDS: LACTATED RINGER'S 1,000 ML IV SCH ×2 (14:24→23:32)
[2019-05-07] MEDS: ACETAMINOPHEN 325 MG TAB PO PRN (18:15)
[2019-05-08 05:10] LABS: Alanine Aminotransferase 62 U/L (12-78); Albumin Level 1.8 gm/dl (3.4-5.0); Aspartate Aminotransferase 103 U/L (15-37); BUN Creatinine Ratio 9.5 (10-20); Bilirubin Direct 0.2 mg/dl (0-0.2); Blood Urea Nitrogen 6 mg/dl (7-18); Calcium 7.9 mg/dl (8.5-10.1); Carbon Dioxide 26 mmol/L (21-32); Chloride 106 mmol/L (98-107); Creatinine Clr Calc Pharmacy 162.1 ml/min; Est GFR (African American) > 150.0; Est GFR (Non-African American) 130.3; Glucose 92 mg/dl (70-99); Potassium 3.9 mmol/L (3.5-5.1); Sodium 138 mmol/L (136-145)
[2019-05-08 05:13] LABS: Alkaline Phosphatase 72 U/L (45-117); Bilirubin,Total 0.6 mg/dl (0.2-1); Total Protein 4.7 gm/dl (6.4-8.2)
[2019-05-08 05:18] LABS: Basophils # (auto) 0.01 K/uL (0-0.2); Basophils % (auto) 0.1 %; Hematocrit (blood only) 25.3 % (37-47); Hemoglobin 8.7 g/dL (12.0-16.0); Immature Granulocytes # (auto) 0.07 K/uL (0.00-0.02); Immature Granulocytes % (auto) 0.7 %; Lymphocytes # (auto) 0.85 K/uL (1.2-3.4); Lymphocytes % (auto) 8.1 %; Mean Corpuscular Hemoglobin 30.5 pg (25-34); Mean Corpuscular Hgb Conc 34.4 g/dL (32-36); Mean Corpuscular Volume 88.8 fL (80-100); Mean Platelet Volume 10.4 fL (7.4-10.4); Monocytes # (auto) 1.17 K/uL (0.11-0.59); Monocytes % (auto) 11.1 %; Neutrophils # (auto) 8.42 K/uL (1.4-6.5); Platelet Count 205 K/uL (130-400); RDW Coefficient of Variation 13.4 % (11.5-14.5); RDW Standard Deviation 43.1 fL (36.4-46.3); Red Blood Count 2.85 M/uL (4.2-5.4); White Blood Count 10.52 K/uL (4.8-10.8)
[2019-05-08] MEDS: LACTATED RINGER'S 1,000 ML IV SCH (08:29)
[2019-05-08] MEDS: DOXYCYCLINE HYCLATE 100 MG in DEXTROSE 5% 100 ML IV SCH ×2 (08:31→21:42)
[2019-05-08] MEDS: PIPERACILLIN/TAZOBACTAM 3.375 GM in DEXTROSE 5% 100 ML IV SCH ×2 (08:31→16:55)
[2019-05-08] MEDS: ENOXAPARIN INJ 40 MG/0.4 ML SYR SQ SCH (08:32)
--- NOTE | 2019-05-08 10:22 | XRay Report ---
XR chest 1V portable CLINICAL HISTORY: 19 years-old Female presenting with abnormal labs, concern for infection, pneumonia . TECHNIQUE: Portable upright AP view of the chest was obtained. COMPARISON: 05/06/2019. FINDINGS: Cardiomediastinal silhouette normal. No focal opacity. No large effusion or pneumothorax. Numerous ex ternal leads overlie the thorax degrading evaluation. Osseous structures normal. Upper abdomen normal . IMPRESSION: 1. No acute cardiopulmonary disease. Electronically signed by: Lincoln Dietz M.D. 05/08/2019 10:20 AM
[2019-05-08] MEDS ORDERED: fentaNYL citrate 100 MCG/2 ML VIAL IV ONE (10:41)
[2019-05-08] MEDS ORDERED: fentaNYL citrate 100 MCG/2 ML VIAL ONE (10:44)
[2019-05-08] MEDS ORDERED: LIDOCAINE 4% MPF SOAK 5 ML = 1 DOSE TOP ONE (11:16)
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
[2019-05-08 12:23] LABS: Chlamydia Trach RNA NOT DETECTED (NOT DETECTED); GC (Neis gonorrhoeae) RNA NOT DETECTED (NOT DETECTED)
[2019-05-08 13:01] LABS: Ferritin 382.4 ng/ml (8-388)
--- NOTE | 2019-05-08 13:29 | Hospitalist Progress Note ---
Date of Service May 08, 2019 Assessment & Plan (1) Tachycardia: Sinus tachycardia on EKG. Ddx includes withdrawal, infection, loss of blood volume (given anemia), VTE, or dehydration. - Cardiology consulted - Monitoring cultures & labs; will consider pelvic exam - On broad-spectrum abx - Will get lower extremity dopplers & possibly even CTA when able (2) Abrasions of multiple sites: Significant abrasions & lacerations on arms, legs, stomach, breasts, & legs. - Wound care following - Do not appear infected at this time. (3) Rhabdomyolysis: High of 2500 on admission; downtrending since then. - No further needs (4) Bipolar 1 disorder: History of bipolar and depression. Was reported to be on venlafaxine, lithium, and quetiapine as outpatient. - Seen by psychiatry - Continue lithium, hold other meds, will follow (5) DVT prophylaxis: Lovenox & SCDs - Low DVT risk per admission calculator Subjective Hungry. Feels "heavy," but otherwise doesn't have focal complaints. Review of Systems Review of Systems: All systems reviewed & are unremarkable except as noted in HPI & below Physical Exam Constitutional: WD/WN, vitals as above Eyes: EOM intact bilaterally; no conjunctival abnormality ENMT: external ear and nose normal, oropharynx normal Neck: trachea midline, no thyromegaly normal visual inspection Respiratory: normal respiratory effort, lungs clear to auscultation no respiratory distress Cardiovascular: RRR, no murmur, no edema Gastrointestinal (Abdomen): Inspection/Auscultation: abdomen normal to inspec tion; abdomen not distended Musculoskeletal: no cyanosis or clubbing, extremities motor strength 5/5 Skin: Trauma: + abrasion and + laceration Neurologic: moves all extremities and awake Psychiatric: Orientation: alert, oriented to person and cooperative Affect: + flat affect and + tearful affect Thought Process: + looseness of associations Results & Data Vital Signs (Past 12 Hours) Vital Signs Temp Pulse BP Pulse Ox 05/08/19 06:01 117 H 107/41 L 96 05/08/19 05:54 124 H 100/53 L 98 05/08/19 05:01 123 H 108/48 L 98 05/08/19 04:30 138 H 99 05/08/19 04:01 135 H 107/50 L 97 05/08/19 04:00 37.3 C 118 H 97 05/08/19 03:45 113 H 98 05/08/19 03:30 115 H 99 05/08/19 03:15 108 H 99 05/08/19 03:04 115 H 105/50 L 99 05/08/19 03:00 112 H 98 05/08/19 02:45 133 H 100 05/08/19 02:30 139 H 99 05/08/19 02:15 108 H 100 05/08/19 02:02 111 H 93/41 L 100 05/08/19 02:00 106 H 100 05/08/19 01:45 110 H 98 05/08/19 01:30 106 H 99 PG Care Time/CCT Total # of Minutes Spent Total Time Spent with Patient: Total time spent is greater than 50% in coordination of care (as documented) at patient's floor/unit and/or counseling patient: (1) Rhabdomyolysis Rhabdomyolysis type: non-traumatic Qualified Code(s): M62.82 - Rhabdomyolysis
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
[2019-05-08 15:06] LABS: Hematocrit (blood only) 26.2 % (37-47)
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
[2019-05-08 18:53] LABS: Hepatitis B Surface Antigen Neg (Neg)
[2019-05-08 19:21] LABS: Hepatitis C IgG 13Yrs+Old_Rflx Neg (Neg)
--- NOTE | 2019-05-08 21:14 | Ultrasound Report ---
BILATERAL LOWER EXTREMITY VENOUS DOPPLER CLINICAL HISTORY: Lower extremity DVT COMPARISON STUDY: No previous studies for comparison. TECHNIQUE: Sonography of the deep venous system of the bilateral lower extremities was performed. Co mpression and augmentation were evaluated. FINDINGS: Evaluation was difficult given overlying bandages. The bilateral common femoral, superficia l femoral and popliteal veins were compressible. Augmentation was normal. Flow was shown within the d eep calf vessels. IMPRESSION: Technically difficult exam given overlying bandages but no evidence of deep venous thromb us within the bilateral lower extremities. Electronically signed by: Osbaldo Castillo M.D. 05/08/2019 9:12 PM
--- NOTE | 2019-05-08 21:15 | Ultrasound Report ---
LIMITED ULTRASOUND TO ASSESS FOR PELVIC FLUID HISTORY: Pouch of Roberto Carlos - any pelvic fluid?. COMPARISON: None. FINDINGS: No fluid was identified within the pelvis by sonography. Madrid balloon was noted within the bladder. IMPRESSION: No pelvic fluid. Electronically signed by: Osbaldo Castillo M.D. 05/08/2019 9:13 PM
[2019-05-08] MEDS: LITHIUM CARBONATE 450 MG TABCR PO SCH (21:41)
[2019-05-09] MEDS: PIPERACILLIN/TAZOBACTAM 3.375 GM in DEXTROSE 5% 100 ML IV SCH ×2 (01:04→13:38)
[2019-05-09 05:59] LABS: Basophils # (auto) 0.03 K/uL (0-0.2); Basophils % (auto) 0.4 %; Hemoglobin 8.5 g/dL (12.0-16.0); Immature Granulocytes # (auto) 0.19 K/uL (0.00-0.02); Immature Granulocytes % (auto) 2.4 %; Lymphocytes % (auto) 12.9 %; Mean Corpuscular Hemoglobin 30.9 pg (25-34); Mean Corpuscular Volume 90.9 fL (80-100); Mean Platelet Volume 10.4 fL (7.4-10.4); Monocytes # (auto) 1.56 K/uL (0.11-0.59); Monocytes % (auto) 20.1 %; Neutrophils % (auto) 64.2 %; Nucleated RBC # (auto) 0.08 K/uL (0-0); Platelet Count 193 K/uL (130-400); RDW Coefficient of Variation 13.6 % (11.5-14.5); RDW Standard Deviation 44.8 fL (36.4-46.3); Red Blood Count 2.75 M/uL (4.2-5.4); White Blood Count 7.78 K/uL (4.8-10.8)
[2019-05-09 06:17] LABS: Alanine Aminotransferase 60 U/L (12-78); Albumin Level 1.8 gm/dl (3.4-5.0); Aspartate Aminotransferase 79 U/L (15-37); Blood Urea Nitrogen 3 mg/dl (7-18); Carbon Dioxide 29 mmol/L (21-32); Chloride 106 mmol/L (98-107); Creatinine Clr Calc Pharmacy 182.5 ml/min; Est GFR (African American) > 150.0; Est GFR (Non-African American) 134.9; Glucose 109 mg/dl (70-99); Magnesium 2.2 mg/dl (1.8-2.4); Potassium 3.1 mmol/L (3.5-5.1); Sodium 141 mmol/L (136-145)
[2019-05-09 06:30] LABS: Albumin Globulin Ratio 0.6 (0.9-2); Alkaline Phosphatase 79 U/L (45-117); Bilirubin,Total 0.3 mg/dl (0.2-1); Globulin 3.2 gm/dl (2.5-4.0); Phosphorus 1.4 mg/dl (2.5-4.9)
[2019-05-09] MEDS ORDERED: POTASSIUM PHOS 3 MMOL/1 ML INFUSION IV STA (06:43)
[2019-05-09] MEDS ORDERED: POTASSIUM PHOSPHATE 40 MMOL in SODIUM CHLORIDE 0.9% 1000ML 1,000 ML IV ONE (07:15)
[2019-05-09] MEDS ORDERED: CALCIUM GLUCONATE 10% 10 ML VIAL IV STA (07:23)
[2019-05-09] MEDS ORDERED: POTASSIUM CHLORIDE PWD 20 MEQ PACK PO ONE (07:24)
[2019-05-09] MEDS ORDERED: CALCIUM GLUCONATE 10% 2,000 MG in SODIUM CHLORIDE 0.9% 50 ML IV ONE (07:45)
[2019-05-09] MEDS: ENOXAPARIN INJ 40 MG/0.4 ML SYR SQ SCH (08:29)
[2019-05-09 08:40] LABS: T4 Free Thyroxine 0.85 ng/dl (0.8-1.6); Thyroid Stimulating Hormone 0.825 uIu/ml (0.300-4.500)
[2019-05-09] MEDS: POT PHOSPHATE MONOBASIC W/ SOD TAB PO SCH ×4 (08:40→22:06)
[2019-05-09] MEDS: LITHIUM CARBONATE 450 MG TABCR PO SCH ×2 (11:48→22:06)
[2019-05-09] MEDS: DOXYCYCLINE HYCLATE 100 MG in DEXTROSE 5% 100 ML IV SCH (11:51)
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
[2019-05-09] MEDS ORDERED: Nursing to Pharmacy Communication ONE (13:54)
--- NOTE | 2019-05-09 15:16 | Nuclear Medicine Report ---
NUCLEAR MEDICINE PERFUSION SCAN CLINICAL HISTORY: Concern for PE. COMPARISON STUDY: Chest radiograph May 08, 2019. TECHNIQUE: 5.5 mCi of technetium 99m MAA was injected IV at 2:35 PM on May 09, 2019. Immediatel y following injection, imaging of the chest was performed in multiple projections. Ventilation imagin g was deferred in this patient. FINDINGS: No perfusion defects are identified on this examination. There is expected radiotracer dist ribution. IMPRESSION: No perfusion defects to suggest pulmonary embolus. Low probability study. Electronically signed by: Osbaldo Castillo M.D. 05/09/2019 3:15 PM
--- NOTE | 2019-05-09 15:22 | Hospitalist Progress Note ---
Date of Service May 09, 2019 Assessment & Plan (1) Tachycardia: Sinus tachycardia on EKG. Ddx includes withdrawal, infection, loss of blood volume (given anemia), VTE, or dehydration. - Cardiology consulted - Feel it is multifactorial - For infection: All blood cultures negative, pelvic exam on 05/08 indicated no sign of infection, WBC normalized, procalcitonin down, lactate normal, skin has many lacerations, but no clear cellulitis. - On Zosyn until 05/09 -> Stopped for negative cultures - Dopplers negative on 05/08. V/Q scan pending. - TSH normal on admission and TSH/FT4 both normal on 05/09. - Given all of the above testing, I believe this is largely due to withdrawal, exposure, and anemia. (2) Anemia: Hgb was 15 on admission; down to 8.7 in 2 days by 05/08. No signs of bleeding. No indication of hematomas on arms/legs on my exam. Ultrasound indicated no pelvic fluid on 05/08. No indication of GI bleeding from patient or nursing. - Possibly hemodilution given her dehydration from being outside for so long. - Iron labs on 05/08 indicate anemia of chronic disease - Will get B12/folate with tomorrow's labs (3) Abrasions of multiple sites: Significant abrasions & lacerations on arms, legs, stomach, breasts, & legs. - Wound care following - Do not appear infected at this time. (4) Rhabdomyolysis: High of 2500 on admission; downtrending since then. - No further needs (5) Bipolar 1 disorder: History of bipolar and depression. Was reported to be on venlafaxine, lithium, and quetiapine as outpatient. - Seen by psychiatry - Continue lithium, hold other meds, will follow (6) DVT prophylaxis: Lovenox & SCDs - Low DVT risk per admission calculator Subjective Still reports feeling very disoriented. Does not have focal complaints of shortness of breath, fevers, abdominal pain, nausea, or vomiting. Review of Systems Review of Systems: All systems reviewed & are unremarkable except as noted in HPI & below Physical Exam Constitutional: WD/WN, vitals as above Eyes: EOM intact bilaterally; no conjunctival abnormality ENMT: external ear and nose normal, oropharynx normal Neck: trachea midline, no thyromegaly normal visual inspection Respiratory: normal respiratory effort, lungs clear to auscultation no respiratory distress Cardiovascular: RRR, no murmur, no edema Gastrointestinal (Abdomen): Inspection/Auscultation: abdomen normal to inspection; abdomen not distended Musculoskeletal: no cyanosis or clubbing, extremities motor strength 5/5 Skin: Trauma: + abrasion and + laceration Neurologic: moves all extremities and awake Psychiatric: Orientation: alert, oriented to person and cooperative Affect: + flat affect and + tearful affect Thought Process: + looseness of associations Results & Data Vital Signs (Past 12 Hours) Vital Signs Temp Pulse Pulse Resp BP Pulse Ox 05/09/19 12:21 37.2 C 109 H 19 123/60 100 05/09/19 08:00 113 H 05/09/19 07:58 37.5 C 119 H 17 105/48 L 95 05/09/19 04:07 37.7 C H 137 H 19 108/62 94 PG Care Time/CCT Total # of Minutes Spent Total Time Spent with Patient: Total time spent is greater than 50% in coordination of care (as documented) at patient's floor/unit and/or counseling patient: (1) Rhabdomyolysis Rhabdomyolysis type: non-traumatic Qualified Code(s): M62.82 - Rhabdomyolysis
[2019-05-09] MEDS: ACETAMINOPHEN 325 MG TAB PO PRN (19:59)
[2019-05-09] MEDS: QUETIAPINE FUMARATE 25 MG TABLET PO SCH (22:05)
[2019-05-09] MEDS: DOXYCYCLINE HYCLATE 100 MG CAP PO SCH (22:05)
[2019-05-10 07:43] LABS: Hematocrit (blood only) 29.6 % (37-47); Hemoglobin 9.6 g/dL (12.0-16.0); Mean Corpuscular Hemoglobin 30.6 pg (25-34); Mean Corpuscular Hgb Conc 32.4 g/dL (32-36); Mean Corpuscular Volume 94.3 fL (80-100); Mean Platelet Volume 10.6 fL (7.4-10.4); Platelet Count 236 K/uL (130-400); RDW Coefficient of Variation 13.7 % (11.5-14.5); RDW Standard Deviation 47.3 fL (36.4-46.3); Red Blood Count 3.14 M/uL (4.2-5.4); White Blood Count 8.71 K/uL (4.8-10.8)
[2019-05-10 08:31] LABS: Alanine Aminotransferase 65 U/L (12-78); Albumin Globulin Ratio 0.5 (0.9-2); Alkaline Phosphatase 85 U/L (45-117); Aspartate Aminotransferase 61 U/L (15-37); BUN Creatinine Ratio 7.5 (10-20); Bilirubin,Total 0.2 mg/dl (0.2-1); Blood Urea Nitrogen 4 mg/dl (7-18); Calcium 8.8 mg/dl (8.5-10.1); Carbon Dioxide 26 mmol/L (21-32); Chloride 109 mmol/L (98-107); Creatinine Clr Calc Pharmacy 205.3 ml/min; Est GFR (African American) > 150.0; Est GFR (Non-African American) 140.2; Globulin 3.7 gm/dl (2.5-4.0); Glucose 82 mg/dl (70-99); Magnesium 2.3 mg/dl (1.8-2.4); Phosphorus 3.2 mg/dl (2.5-4.9); Potassium 3.5 mmol/L (3.5-5.1); Sodium 143 mmol/L (136-145); Total Protein 5.7 gm/dl (6.4-8.2)
[2019-05-10] MEDS: LITHIUM CARBONATE 450 MG TABCR PO SCH ×2 (09:14→21:42)
[2019-05-10] MEDS: ENOXAPARIN INJ 40 MG/0.4 ML SYR SQ SCH (09:14)
[2019-05-10] MEDS: DOXYCYCLINE HYCLATE 100 MG CAP PO SCH ×2 (09:15→21:43)
[2019-05-10] MEDS ORDERED: HYDROmorphone INJ 0.5 MG/0.5 ML SYR IV PRN (09:37)
[2019-05-10] MEDS: POLYETHYLENE (MIRALAX) 17 GM PACK PO SCH (10:25)
[2019-05-10 10:40] LABS: Folate (Folic Acid) 13.02 ng/ml (>5.38)
[2019-05-10] MEDS ORDERED: IRON SUCROSE 200 MG in 0.9 % SODIUM CHLORIDE 100 ML IV SCH (13:00)
--- NOTE | 2019-05-10 13:21 | Wound Progress Note ---
Date of Service May 10, 2019 Assessment & Plan (1) Unstageable pressure ulcer of left elbow: This wound did not require debridement. It will be painted with Betadine daily. Offload with elbow Bot. Anticipate that the eschar will lift. Surrounding abrasions to be dressed with Xeroform changed 1-2 times a day. (2) Unstageable pressure ulcer of right elbow: This wound did require debridement of necrotic tissue. With the patient's permission and after the application of topical Xylocaine the wound was debrided with curette, and scissors and forceps, of slough and necrotic subcutaneous tissue. Wound culture was done. No bleeding occurred. This wound will be dressed with Xeroform and gauze. Changed daily or twice daily if Xeroform is drying out. (3) Abrasion of multiple sites of upper arm: These wounds did not require debridement. Xeroform and gauze dressing (4) Abrasion of multiple sites of lower extremity: These wounds did not require debridement. Xeroform and gauze dressings to the areas (5) Abrasion of multiple sites of trunk: The patient's wounds did require debridement. With the patient's permission and after the application of topical Xylocaine the wounds were debrided with curette, and scissors and forceps ,of slough and necrotic subcutaneous tissue. Bleeding occurred which was controlled with pressure. These wounds will also be dressed with Xeroform and gauze.. (6) Pressure ulcer with abrasion, blister, partial thickness skin loss involving epidermis and/or dermis: The pressure ulcers on both knees continue to be covered by thick adherent fibrous slough. These wounds will be dressed with Santyl and gauze with daily dressing changes. Anticipate debridement next week (7) Foot ulceration: The ulcers on both feet did require debridement. With the patient's permission and after the application of topical Xylocaine the wounds were debrided with a scissor, forceps and curette of slough and eschar. Wounds will be dressed with Xeroform and gauze. Change daily or twice a day.. The breast wounds were not examined today due to patient's inability to tolerate additional debridement. These will also be dressed with Xeroform. We continue to follow and, if still an inpatient, will reevaluate with additional wound debridement on Monday, If discharged- [facility] Recommend that she continues on current antibiotic therapy pending results of wound culture. In total - All debridements represent an non-excisional debridement of 30 cm and an excisional debridement of 600 cm. Total time at patient's bedside -70 min Subjective Patient was seen today for reevaluation of multiple pressure ulcers and traumatic wounds to her extremities, torso and abdomen. The patient continues to complain of mild to moderate pain with dressing changes. Her knee wounds have been dressed with Tegaderm. Other wounds have Vaseline gauze on them. The Vaseline gauze has been sticking. She is currently on doxycycline. She voices no other complaints regarding her wounds. Physical Exam Physical Exam: Patient's vital signs were reviewed. She is afebrile. Pulse is elevated to 106. The patient's wounds were not remeasured today. Measurements are from 05/07. Wound #1 on the abdomen measured 23 x 30 x 0.2 cm. Today the wound bed shows increase epithelization with patchy slough and a central area of necrotic tissue. Scant drainage. The periwound area is desquamating but no increased warmth or increased erythema. No odor. Wound #2 on the left anterior thigh measures 25 x 15 x 0.0 centimeters. Most of the wound shows superficial scabbing with central areas of necrotic tissue. Peripheral slough also noted. Periwound area has mild erythema. No increased warmth. No drainage or odor present. Wound #3 on the left Achilles measured 2 x 3.5 x 0.2 cm. Wound was covered with scab. No drainage or odor. Wound #4 on the right breast measures 15 x 25 x 0.0 cm. Area was not re examined today Wound #5 on the left breast measured 9 x 11 x 0.0 cm. Area was not examined today. Wound #6 on the fifth toe measures 1 x 0.5 x 0.1cm. Wound was covered with slough. Scant drainage. No odor. Periwound area is mildly inflamed. Wound #7 on the left great toe measures 2 x 0.5 x 0.2cm. Wound was covered with adherent eschar. No drainage or odor. Wound #8 on the right fifth toe measures 2.5 x 1 x 0.1cm. Wound is covered with slough. Scant drainage. No odor. Periwound area is mildly inflamed. Wound #9 on the right plantar foot measured 2.1 x 6.5 x 0.1cm. Wound is covered with slough. No drainage or odor. Periwound area is mildly area Wound #10 on the left plantar foot measures 3 x 2.5 x 0.3 cm. Wound is covered with slough. No drainage or odor. Periwound area is mildly inflamed. Wound #11 on the right elbow measures 10 x 10 x 0.0cm. The anterior portion of this wound is covered by dry dense eschar. Over the posterior elbow she has loose and necrotic skin. Purulent drainage noted. Scant odor. Periwound area is mildly inflamed. Wound #12 on the left elbow measures 10 x 10 x 0.0cm. Wound is covered with dry dense eschar. No drainage or odor. Periwound area is mildly inflamed. Wound #13 on the right arm is a series of abrasions measuring 45 x 20 x 0.1cm. Wounds are dry and scabbed. No drainage or odor. Periwound area is not inflamed. Wound #14 on the left arm measures 50 x 25 x 0.5cm. These are also a number of abrasions. Wounds are scabbed. No drainage or odor. Periwound area is noninflamed. Results & Data Vital Signs (Past 12 Hours) Vital Signs Temp Pulse Resp BP Pulse Ox 05/10/19 07:57 37.5 C 106 H 17 113/64 100 05/10/19 03:18 36.9 C 125 H 16 102/65 98
--- NOTE | 2019-05-10 16:02 | Hospitalist Progress Note ---
Date of Service May 10, 2019 Assessment & Plan (1) Tachycardia: Sinus tachycardia on EKG. Ddx includes withdrawal, infection, loss of blood volume (given anemia), VTE, or dehydration. - Cardiology consulted - Feel it is multifactorial - For infection: All blood cultures negative, pelvic exam on 05/08 indicated no sign of infection, WBC normalized, procalcitonin down, lactate normal, skin has many lacerations, but no clear cellulitis. - On Zosyn until 05/09 -> Stopped for negative cultures - Dopplers negative on 05/08. Perfusion scan low probability for PE on 05/09. - TSH normal on admission and TSH/FT4 both normal on 05/09. - Given all of the above testing, I believe this is largely due to anemia and possibly from either intoxication of unknown substance or medication withdrawal. (2) Anemia: Hgb was 15 on admission; down to 8.7 in 2 days by 05/08. No signs of bleeding apart from abrasions and lacerations. Acute blood loss anemia is possible, but less likely. No indication of hematomas on arms/legs on my exam. Ultrasound indicated no pelvic fluid on 05/08. No indication of GI bleeding from patient or nursing. - Likely hemodilution and poor iron reserves. - Iron labs on 05/08 indicate anemia of chronic disease. B12/folate normal on 05/10. - Gave one dose of IV iron on 05/10. (3) Abrasions of multiple sites: Significant abrasions & lacerations on arms, legs, stomach, breasts, & legs. - Wound care following - Full wound check done on 05/10 - Some concern for early/mild cellulitis on right arm, but otherwise no other wounds appear infected. - Continue doxycycline for now - Wound culture done on 05/10. (4) Rhabdomyolysis: High of 2500 on admission; downtrending since then. - No further needs (5) Bipolar 1 disorder: History of bipolar and depression. Was reported to be on venlafaxine, lithium, and quetiapine as outpatient. - Seen by psychiatry - Continue lithium & quetiapine; hold venlafaxine (6) DVT prophylaxis: Lovenox & SCDs - Low DVT risk per admission calculator Subjective Feeling better today. Overall still somewhat downcast, but her flight of ideas seems less severe today. Had some abdominal pain today. Review of Systems Review of Systems: All systems reviewed & are unremarkable except as noted in HPI & below Physical Exam Constitutional: WD/WN, vitals as above Eyes: EOM intact bilaterally; no conjunctival abnormality ENMT: external ear and nose normal, oropharynx normal Neck: trachea midline, no thyromegaly normal visual inspection Respiratory: normal respiratory effort, lungs clear to auscultation no respiratory distress Cardiovascular: Rate/Rhythm: regular rhythm and + tachycardic Heart Sounds: normal S1 and normal S2 Gastrointestinal (Abdomen): Inspection/Auscultation: abdomen normal to inspection; abdomen not distended Musculoskeletal: no cyanosis or clubbing, extremities motor strength 5/5 Skin: Trauma: + abrasion and + laceration Neurologic: moves all extremities and awake Psychiatric: Orientation: alert, oriented to person and cooperative Affect: + flat affect; no tearful affect Thought Process: + looseness of associations Results & Data Vital Signs (Past 12 Hours) Vital Signs Temp Pulse Resp BP BP Pulse Ox 05/10/19 15:26 36.7 C 112 H 19 105/64 99 05/10/19 07:57 37.5 C 106 H 17 113/64 100 PG Care Time/CCT Total # of Minutes Spent Total Time Spent with Patient: Total time spent is greater than 50% in coordination of care (as documented) at patient's floor/unit and/or counseling patient: (1) Rhabdomyolysis Rhabdomyolysis type: non-traumatic Qualified Code(s): M62.82 - Rhabdomyolysis
[2019-05-10] MEDS ORDERED: MoRPHine SULFATE 2 MG/ML CARP IV PRN (18:11)
[2019-05-10] MEDS: COLLAGENASE OINT 30 GM TUBE EXT SCH (18:45)
[2019-05-10] MEDS ORDERED: ONDANSETRON INJ 2 MG/ML 2 ML VIAL IV PRN (18:51)
[2019-05-10] MEDS: QUETIAPINE FUMARATE 25 MG TABLET PO SCH (21:42)
[2019-05-11 06:10] LABS: Hematocrit (blood only) 31.4 % (37-47); Mean Corpuscular Hemoglobin 30.3 pg (25-34); Mean Corpuscular Hgb Conc 31.8 g/dL (32-36); Mean Corpuscular Volume 95.2 fL (80-100); Mean Platelet Volume 10.3 fL (7.4-10.4); Platelet Count 211 K/uL (130-400); RDW Coefficient of Variation 13.6 % (11.5-14.5); White Blood Count 8.29 K/uL (4.8-10.8)
[2019-05-11] MEDS: DOXYCYCLINE HYCLATE 100 MG CAP PO SCH ×2 (08:12→20:54)
[2019-05-11] MEDS: LITHIUM CARBONATE 450 MG TABCR PO SCH ×2 (08:12→20:54)
[2019-05-11] MEDS: ENOXAPARIN INJ 40 MG/0.4 ML SYR SQ SCH (08:12)
[2019-05-11] MEDS: POLYETHYLENE (MIRALAX) 17 GM PACK PO SCH (08:12)
[2019-05-11] MEDS: HYDROmorphone INJ 0.5 MG/0.5 ML SYR IV PRN (09:48)
[2019-05-11] MEDS: COLLAGENASE OINT 30 GM TUBE EXT SCH (09:49)
[2019-05-11] MEDS: MoRPHine SULFATE 4 MG/ML 1 ML CARP\\VIAL IV PRN (13:33)
[2019-05-11 14:49] LABS: Chlamydia Trach RNA NOT DETECTED (NOT DETECTED); GC (Neis gonorrhoeae) RNA NOT DETECTED (NOT DETECTED); Trichomonas vaginalis RNA NOT DETECTED (NOT DETECTED)
[2019-05-11] MEDS: QUETIAPINE FUMARATE 25 MG TABLET PO PRN (15:13)
--- NOTE | 2019-05-11 17:21 | Hospitalist Progress Note ---
Date of Service May 11, 2019 Assessment & Plan (1) Tachycardia: Sinus tachycardia on EKG. Ddx includes withdrawal, infection, loss of blood volume (given anemia), VTE, or dehydration. - Cardiology consulted - Feel it is multifactorial - For infection: All blood cultures negative, pelvic exam on 05/08 indicated no sign of infection, WBC normalized, procalcitonin down, lactate normal, skin has many lacerations, but no clear cellulitis. - On Zosyn until 05/09 -> Stopped for negative cultures - Dopplers negative on 05/08. Perfusion scan low probability for PE on 05/09. - TSH normal on admission and TSH/FT4 both normal on 05/09. - Given all of the above testing, I believe this is largely due to anemia and possibly from either intoxication of unknown substance or medication withdrawal. - By 05/11, HR is improving to 80-100 range. (2) Anemia: Hgb was 15 on admission; down to 8.7 in 2 days by 05/08. No signs of bleeding apart from abrasions and lacerations. Acute blood loss anemia is possible, but less likely. No indication of hematomas on arms/legs on my exam. Ultrasound indicated no pelvic fluid on 05/08. No indication of GI bleeding from patient or nursing. - Likely hemodilution and poor iron reserves. - Iron labs on 05/08 indicate anemia of chronic disease. B12/folate normal on 05/10. - Gave one dose of IV iron on 05/10. - On 05/11, hgb up to 10. Likely will slowly improve with time. (3) Abrasions of multiple sites: Significant abrasions & lacerations on arms, legs, stomach, breasts, & legs. - Wound care following - Full wound check done on 05/10 - Some concern for early/mild cellulitis on right arm, but otherwise no other wounds appear infected. - Continue doxycycline for now - Wound culture done on 05/10 - Growing coag.(-) Staph. (4) Rhabdomyolysis: High of 2500 on admission; downtrending since then. Traumatic rhabdomyolysis which was present on admission. - No further needs (5) Bipolar 1 disorder: History of bipolar and depression. Was reported to be on venlafaxine, lithium, and quetiapine as outpatient. - Seen by psychiatry - Continue lithium & quetiapine; hold venlafaxine - As above, affect and mental status appears to be improving. (6) DVT prophylaxis: Lovenox & SCDs - Low DVT risk per admission calculator Subjective Feeling better today than prior. Her affect is much calmer and less pressured today. No pressured speech. Review of Systems Review of Systems: All systems reviewed & are unremarkable except as noted in HPI & below Physical Exam Constitutional: WD/WN, vitals as above Eyes: EOM intact bilaterally; no conjunctival abnormality ENMT: external ear and nose normal, oropharynx normal Neck: trachea midline, no thyromegaly normal visual inspection Respiratory: normal respiratory effort, lungs clear to auscultation no respiratory distress Cardiovascular: RRR, no murmur, no edema Rate/Rhythm: regular rhythm and + tachycardic Heart Sounds: normal S1 and normal S2 Gastrointestinal (Abdomen): Inspection/Auscultation: abdomen normal to inspection; abdomen not distended Musculoskeletal: no cyanosis or clubbing, extremities motor strength 5/5 Skin: Trauma: + abrasion and + laceration Neurologic: moves all extremities and awake Psychiatric: Orientation: alert, oriented to person and cooperative Affect: euthymic affect; no anxious affect Thought Process: no looseness of associations Results & Data Vital Signs (Past 12 Hours) Vital Signs Temp Pulse Pulse Resp BP Pulse Ox 05/11/19 14:53 37.0 C 82 18 105/67 97 05/11/19 11:45 36.7 C 95 H 20 115/73 99 05/11/19 08:00 94 H PG Care Time/CCT Total # of Minutes Spent Total Time Spent with Patient: Total time spent is greater than 50% in coordination of care (as documented) at patient's floor/unit and/or counseling patient: (1) Rhabdomyolysis Rhabdomyolysis type: non-traumatic Qualified Code(s): M62.82 - Rhabdomyolysis
[2019-05-11 20:13] LABS: Babesia microti IgG <1:64 (<1:64); Hepatitis A Antibody IgM NON-REACTIVE (NON-REACTIVE); Hepatitis B Core Antibody IgM NON-REACTIVE (NON-REACTIVE)
[2019-05-11] MEDS: QUETIAPINE FUMARATE 100 MG TABLET PO SCH (20:53)
[2019-05-12 06:36] LABS: Hematocrit (blood only) 32.9 % (37-47); Hemoglobin 10.8 g/dL (12.0-16.0); Mean Corpuscular Hemoglobin 30.3 pg (25-34); Mean Corpuscular Hgb Conc 32.8 g/dL (32-36); Mean Corpuscular Volume 92.4 fL (80-100); Mean Platelet Volume 10.4 fL (7.4-10.4); Platelet Count 274 K/uL (130-400); RDW Coefficient of Variation 13.1 % (11.5-14.5); RDW Standard Deviation 44.2 fL (36.4-46.3); Red Blood Count 3.56 M/uL (4.2-5.4)
[2019-05-12] MEDS: LITHIUM CARBONATE 450 MG TABCR PO SCH ×2 (07:27→20:41)
[2019-05-12] MEDS: DOXYCYCLINE HYCLATE 100 MG CAP PO SCH ×2 (07:27→20:42)
[2019-05-12] MEDS: QUETIAPINE FUMARATE 25 MG TABLET PO PRN (07:27)
[2019-05-12] MEDS: ENOXAPARIN INJ 40 MG/0.4 ML SYR SQ SCH (07:30)
[2019-05-12] MEDS: POLYETHYLENE (MIRALAX) 17 GM PACK PO SCH (07:47)
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
[2019-05-12] MEDS: MoRPHine SULFATE 4 MG/ML 1 ML CARP\\VIAL IV PRN ×2 (11:59→20:43)
[2019-05-12] MEDS: VENLAFAXINE HCL XR 37.5 MG CAPXR PO SCH (12:03)
[2019-05-12] MEDS: COLLAGENASE OINT 30 GM TUBE EXT SCH (12:40)
--- NOTE | 2019-05-12 14:29 | Hospitalist Progress Note ---
Date of Service May 12, 2019 Assessment & Plan (1) Tachycardia: Sinus tachycardia on EKG. Ddx includes withdrawal, infection, loss of blood volume (given anemia), VTE, or dehydration. Cardiology consulted - Feel it is possibly due to her psych medications. - For infection: All blood cultures negative, pelvic exam on 05/08 indicated no sign of infection, WBC normalized, procalcitonin down, lactate normal, skin has many lacerations, but no clear cellulitis. - Dopplers negative on 05/08. Perfusion scan low probability for PE on 05/09. - TSH normal on admission and TSH/FT4 both normal on 05/09. - Given all of the above testing, I believe this is largely due to anxiety, anemia, and medications. - By 05/11, HR improved to 80-100 range. By 05/12, her HR was up slightly, but her anxiety was climbing. Unfortunately, her quetiapine was increased and her venlafaxine was restarted which could be muddying the picture slightly. (2) Anemia: Hgb was 15 on admission; down to 8.7 in 2 days by 05/08. No signs of bleeding apart from abrasions and lacerations. Acute blood loss anemia is possible, but less likely. No indication of hematomas on arms/legs on my exam. Ultrasound indicated no pelvic fluid on 05/08. No indication of GI bleeding from patient or nursing. - Likely hemodilution and poor iron reserves. - Iron labs on 05/08 indicate anemia of chronic disease. B12/folate normal on 05/10. - Gave one dose of IV iron on 05/10. - On 05/12, hgb up to 10.6. Likely will slowly improve with time. (3) Abrasions of multiple sites: Significant abrasions & lacerations on arms, legs, stomach, breasts, & legs. - Wound care following - Full wound check done on 05/10 - Some concern for early/mild cellulitis on right arm, but otherwise no other wounds appear infected. - Continue doxycycline for now - Wound culture done on 05/10 - Growing coag.(-) Staph. Should still cover it per [facility] guide 2018. (4) Rhabdomyolysis: High of 2500 on admission; downtrending since then. Traumatic rhabdomyolysis which was present on admission. - No further needs (5) Bipolar 1 disorder: History of bipolar and depression. Was reported to be on venlafaxine, lithium, and quetiapine as outpatient. - Seen by psychiatry - Continue lithium & quetiapine; restarted venlafaxine. - As noted above, her affect is more anxious yesterday and today. On 05/12, industrial organizational psychologist had concerns about visual hallucinations. (6) DVT prophylaxis: Lovenox & SCDs - Low DVT risk per admission calculator Subjective Some increased anxiety today. She has continued pain from her wounds, but otherwise has no focal complaints. No shortness of breath, no nausea, no vomiting, no diarrhea, no fevers or chills. Review of Systems Review of Systems: All systems reviewed & are unremarkable except as noted in HPI & below Physical Exam Constitutional: WD/WN, vitals as above Eyes: EOM intact bilaterally; no conjunctival abnormality ENMT: external ear and nose normal, oropharynx normal Neck: trachea midline, no thyromegaly normal visual inspection Respiratory: normal respiratory effort, lungs clear to auscultation no respiratory distress Cardiovascular: RRR, no murmur, no edema Rate/Rhythm: regular rhythm and + tachycardic Heart Sounds: normal S1 and normal S2 Gastrointestinal (Abdomen): Inspection/Auscultation: abdomen normal to inspection; abdomen not distended Musculoskeletal: no cyanosis or clubbing, extremities motor strength 5/5 Skin: Trauma: + abrasion and + laceration Neurologic: moves all extremities and awake Psychiatric: Orientation: alert, oriented to person and cooperative Affect: euthymic affect; no anxious affect Thought Process: no looseness of associations Results & Data Vital Signs (Past 12 Hours) Vital Signs Temp Pulse Pulse Pulse Resp BP Pulse Ox 05/12/19 11:56 36.7 C 117 H 103/69 100 05/12/19 07:31 36.5 C 110 H 18 102/60 100 05/12/19 05:56 36.8 C 102 H 20 112/69 97 PG Care Time/CCT Total # of Minutes Spent Total Time Spent with Patient: Total time spent is greater than 50% in coordination of care (as documented) at patient's floor/unit and/or counseling patient: (1) Rhabdomyolysis Rhabdomyolysis type: non-traumatic Qualified Code(s): M62.82 - Rhabdomyolysis
[2019-05-12] MEDS: QUETIAPINE FUMARATE 100 MG TABLET PO SCH (20:40)
[2019-05-12] MEDS: LORazepam 1 MG/2 ML VIAL IV PRN (23:44)
[2019-05-13 07:16] LABS: Hematocrit (blood only) 31.9 % (37-47); Hemoglobin 10.2 g/dL (12.0-16.0); Mean Corpuscular Hemoglobin 29.8 pg (25-34); Mean Corpuscular Volume 93.3 fL (80-100); Mean Platelet Volume 10.6 fL (7.4-10.4); Platelet Count 260 K/uL (130-400); RDW Coefficient of Variation 13.3 % (11.5-14.5); RDW Standard Deviation 44.8 fL (36.4-46.3); Red Blood Count 3.42 M/uL (4.2-5.4); White Blood Count 9.29 K/uL (4.8-10.8)
[2019-05-13 08:17] LABS: BUN Creatinine Ratio 13.2 (10-20); Blood Urea Nitrogen 6 mg/dl (7-18); Calcium 9.1 mg/dl (8.5-10.1); Carbon Dioxide 26 mmol/L (21-32); Chloride 106 mmol/L (98-107); Creatinine Clr Calc Pharmacy 209.5 ml/min; Est GFR (African American) > 150.0; Est GFR (Non-African American) 141.2; Glucose 96 mg/dl (70-99); Magnesium 2.4 mg/dl (1.8-2.4); Phosphorus 3.8 mg/dl (2.5-4.9); Potassium 4.1 mmol/L (3.5-5.1); Sodium 139 mmol/L (136-145)
[2019-05-13] MEDS: ENOXAPARIN INJ 40 MG/0.4 ML SYR SQ SCH ×2 (09:21→09:24)
[2019-05-13] MEDS: DOXYCYCLINE HYCLATE 100 MG CAP PO SCH (09:22)
[2019-05-13] MEDS: VENLAFAXINE HCL XR 37.5 MG CAPXR PO SCH (09:22)
[2019-05-13] MEDS: LITHIUM CARBONATE 450 MG TABCR PO SCH ×2 (09:22→20:04)
[2019-05-13] MEDS: POLYETHYLENE (MIRALAX) 17 GM PACK PO SCH (09:42)
[2019-05-13] MEDS: HYDROmorphone INJ 0.5 MG/0.5 ML SYR IV PRN (10:55)
[2019-05-13] MEDS: COLLAGENASE OINT 30 GM TUBE EXT SCH (12:28)
--- NOTE | 2019-05-13 13:10 | Wound Progress Note ---
Date of Service May 13, 2019 Assessment & Plan (1) Unstageable pressure ulcer of left elbow: Wound is improved. The wound did require debridement. With the patient's permission and after the application of topical Xylocaine, the wound was debrided with 11 blade scalpel and scissors and forceps, of eschar and necrotic subcutaneous tissue. Bleeding occurred which was controlled with pressure. This represents an excisional debridement of 72 cm2 . The areas with dense eschar which was not removed should be be painted with Betadine. Areas that are open or to be dressed with Aquacel Ag changed every2 days.. (2) Unstageable pressure ulcer of right elbow: Wound improved. This wound did require debridement of necrotic tissue. With the patient's permission and after the application of topical Xylocaine the wound was debrided with 11 blade scalpel, and scissors and forceps, of slough and necrotic subcutaneous tissue. No bleeding occurred. Adherent eschar will be dressed with Betadine. Other areas dressed with Aquacel Ag changed every 3 days. (3) Abrasion of multiple sites of upper arm: Wounds improved. These wounds did not require debridement. Aquacel Ag and gauze dressing changed every 2 days (4) Abrasion of multiple sites of lower extremity: Wounds improved. These wounds did not require debridement. Aquacel Ag and gauze dressings to the areas changed every 2 days (5) Abrasion of multiple sites of trunk: Wounds are improved. The abdominal wounds did not require debridement. These wounds will be dressed with hydrogel pads changed every other day. The patient's wounds on the thighs did require debridement. With the patient's permission and after the application of topical Xylocaine the wounds were debrided with curette, and scissors and forceps ,of slough and necrotic subcutaneous tissue. Bleeding occurred which was controlled with pressure. These wounds will also be dressed with silver AG and gauze changed every 2 days. (6) Pressure ulcer with abrasion, blister, partial thickness skin loss involving epidermis and/or dermis: The pressure ulcers on both knees continue to be covered by thick adherent fibrous slough. These wounds will be dressed with Santyl and gauze with daily dressing changes. Anticipate debridement later this week or next week (7) Foot ulceration: The ulcers on the right foot did not require debridement. These wounds will be dressed with moistened Aquacel Ag changed every 2 days. The ulcer on the left great toe and plantar aspect of the foot and left heel did require debridement. With the patient's permission and after the application of topical Xylocaine the wounds were debrided with a curette. I was unable to remove most of the slough on the plantar and Achilles areas however I was able to remove the eschar on the great toe with scissor and forcep. The great toe wound will be dressed with Aquacel Ag. The plantar wound and the wound on the Achilles area will be dressed with Santyl and optifoam change daily wounds. The breast wounds require debridement. The wound did require debridement. With the patient's permission and after the application of topical Xylocaine the wound was debrided with a curette and scissor and forcep of slough and eschar. Scant bleeding occurred which was controlled with pressure. These areas will be dressed with Hydrocel gel pads changed every other day Will continue to follow and, if still an inpatient, I will reevaluate her for additional wound debridement later this week. Inpatient wound care nurses will continue to follow and assist with dressing change as well. Doxycycline may be discontinued. Patient may shower. If discharged- follow up [facility] as an outpatient In total - All debridements represent an non-excisional debridement of 60 cm and an excisional debridement of 120 cm. Total time at patient's bedside -60 min Subjective Patient was seen today for reevaluation of multiple pressure ulcers and traumatic wounds to her extremities, torso and abdomen. The patient continues to complain of mild to moderate pain with dressing changes. Her knee wounds have been dressed with Santyl and opti foam . Left elbow eschar is being painted with Betadine. All other wounds have Xeroform dressing on them. Apparently the Xeroform gauze has been sticking as well. She is currently on d oxycycline. Recent wound culture grew out coag negative staph. She voices no other complaints regarding her wounds. She does appear to have increased paranoia today. Physical Exam Physical Exam: Patient's vital signs were reviewed. She is afebrile. Pulse is minimally elevated to 94. Alert in mild distress Appears acutely paranoid. . Wound #1 on the abdomen now has bridging between two wounds. The most proximal wound measure 4 x 22.5 x 0.1cm, The distal wound measures 1.4 x 8.4 x 0.1cm Overall there is a 85% decrease in total surface area Wound bed shows increase epithelization. No necrotic tissue or slough. Scant drainage. The periwound area is desquamating but no increased warmth or increased erythema. No odor. Wound #2 on the left anterior thigh measures 2.0 x 2.0 x0.1cm. This is a 99% decrease in total surface area Most of the wound shows superficial scabbing and/or reepithelialization with small central areas of necrotic tissue. Periwound area has mild erythema. No increased warmth. No drainage or odor present. Wound #3 on the left Achilles measures 1.9 x 2.0 x 0.1 cm. This is a 46 % decrease in total surface area. Wound base is covered with slough. No drainage or odor. Periwound area is not inflamed. Wound #4 on the right breast measures 10 x 0.5 x 0.1 cm. This is an 86% decrease in total surface area. Wound is covered with slough and eschar. Periwound area is not inflamed. Wound #5 on the left breast has two wounds. The most proximal measures 1.5 x 3.0 x 0.1 cm. Distal wound measures 1 x 3 x 0.1 cm. This is a 92% decrease in total surface area. Wound is covered with slough and eschar. No drainage or odor. Periwound area is not inflamed. Wound #6 on the left fifth toe measures 1.0 x 0.5 cm. This is a69 % decrease in total surface area. Wound bed shows increased epithelization. No drainage or odor. Periwound area is not inflamed Wound #7 on the left great toe measures 2 x 0.5 x 0.2 cm. This is unchanged in surface area. Wound is covered with eschar. No drainage or odor. Wound #8 on the right fifth toe measures 1.8 x 1.1 cm. This is a 21 % decrease in total surface area. Wound bed shows increase epithelization. No drainage or odor. Periwound area is not inflamed. . Wound #9 on the right plantar foot measured 2..5 X 6 cm. This is an increase in total surface area. Wound bed with increase epithelization. No drainage or odor. Periwound area is not inflamed Wound #10 on the left plantar foot measures 2.2 x 3.3 x 0.1cm. This is a minimal decrease in surface area. Wound is covered with fibrous slough. No drainage or odor. Periwound area is mildly inflamed. Wound #11 on the right elbow measures 9 x 3.1 x 0 cm. This is a 72 % decrease in total surface area. The eschar has loosened. Increased epithelialization noted. No odor or drainage. . Periwound area is mildly inflamed. Wound #12 on the left elbow measures 9 x 8 x0 cm. This is a 28 % decrease in surface area. Wound is covered with dry dense eschar. Eschar has loosened along the edges . There is still a very dense adherent eschar in place. Bridging of increased epithelial tissue is noted. No drainage or odor. Periwound area is mildly inflamed. Wound #13 on the right arm is scattered abrasions that are healing Wounds are dry and scabbed. Some areas of eschar lifting. Underneath the patient has freshly healed wounds. No drainage or odor. Periwound area is not inflamed. Wound #14 on the left arm are scattered abrasions Wounds are scabbed. Some of areas of scabbing have lifted and underneath are freshly healed wound. No drainage or odor. Periwound area is noninflamed. Wound # 15 on the right anterion knee measures 5.2 x 3.5 cm. Dense fibrous slough noted. No drainage or odor. Periwound area is minimally inflammed. Wound # 16 on the left anterior knee measures 6.5 x 3.2 x 0.1 cm. Dense fibrous slough noted. no drainage or odor. Periwound area is mildly inflammed. Results & Data Vital Signs (Past 12 Hours) Vital Signs Temp Pulse Pulse Resp BP Pulse Ox 05/13/19 08:06 36.7 C 94 H 20 111/76 100 05/13/19 02:44 36.6 C 80 16 124/80 95
--- NOTE | 2019-05-13 14:44 | Hospitalist Progress Note ---
Date of Service May 13, 2019 Assessment & Plan (1) Tachycardia: Sinus tachycardia on EKG. Ddx includes withdrawal, infection, loss of blood volume (given anemia), VTE, or dehydration. Cardiology consulted - Feel it is due to her psych medications. - For infection: All blood cultures negative, pelvic exam on 05/08 indicated no sign of infection, WBC normalized, procalcitonin down, lactate normal, skin has many lacerations, but no clear cellulitis. - Dopplers negative on 05/08. Perfusion scan low probability for PE on 05/09. - TSH normal on admission and TSH/FT4 both normal on 05/09. - By 05/11, HR improved to 80-100 range. By 05/13, her HR is stable. - Discussed with cardiology on 05/12 - Still feel the tachycardia is due to anxiety and meds. She does not need monitoring and is cleared from medical standpoint. Heart rate should be periodically monitored. If it does not come down in 1-2 weeks, cardiology recommended adjusting her psychiatric medications to ones that do not have tachycardia as a side effect. (2) Anemia: Hgb was 15 on admission; down to 8.7 in 2 days by 05/08. No signs of bleeding apart from abrasions and lacerations. Acute blood loss anemia is possible, but less likely. No indication of hematomas on arms/legs on my exam. Ultrasound indicated no pelvic fluid on 05/08. No indication of GI bleeding from patient or nursing. - Likely hemodilution and poor iron reserves. - Iron labs on 05/08 indicate anemia of chronic disease. B12/folate normal on 05/10. - Gave one dose of IV iron on 05/10. On 05/12, hgb up to 10.6. Likely will slowly improve with time. - Monitor with CBC in 1 week. If not improving, could consider giving another dose of IV iron. (3) Abrasions of multiple sites: Significant abrasions & lacerations on arms, legs, stomach, breasts, & legs. - Wound care following - Full wound check done on 05/10 - Some concern for early/mild cellulitis on right arm, but otherwise no other wounds appear infected. - On 05/13, she was seen by wound care. Wounds are doing very well. Conservative dressing changes (every other day) for upper body and arms. Will need wound care follow up in ~1 week to examine the feet, legs, and knees. No signs of infection. - Stop antibiotics per wound care MD. (4) Rhabdomyolysis: High of 2500 on admission; downtrending since then. Traumatic rhabdom yolysis which was present on admission. - No further needs (5) Bipolar 1 disorder: History of bipolar and depression. Was reported to be on venlafaxine, lit hium, and quetiapine as outpatient. - Seen by psychiatry - Continue lithium & quetiapine; restarted venlafaxine. - As noted above, her affect is more anxious yesterday and today. On 05/12, psychiatric therapist had concerns about visual hallucinations. (6) DVT prophylaxis: Lovenox & SCDs - Low DVT risk per admission calculator Subjective Feeling well today, though overnight had some agitation and was actually throwing objects. Review of Systems Review of Systems: All systems reviewed & are unremarkable except as noted in HPI & below Physical Exam Constitutional: WD/WN, vitals as above Eyes: EOM intact bilaterally; no conjunctival abnormality ENMT: external ear and nose normal, oropharynx normal Neck: trachea midline, no thyromegaly normal visual inspection Respiratory: normal respiratory effort, lungs clear to auscultation no respiratory distress Cardiovascular: RRR, no murmur, no edema Rate/Rhythm: regular rhythm and + tachycardic Heart Sounds: normal S1 and normal S2 Gastrointestinal (Abdomen): Inspection/Auscultation: abdomen normal to inspection; abdomen not distended Musculoskeletal: no cyanosis or clubbing, extremities motor strength 5/5 Skin: Trauma: + abrasion and + laceration Neurologic: moves all extremities and awake Psychiatric: Orientation: alert, oriented to person and cooperative Affect: euthymic affect; no anxious affect Thought Process: no looseness of associations Results & Data Vital Signs (Past 12 Hours) Vital Signs Temp Pulse Pulse Resp BP Pulse Ox 05/13/19 08:06 36.7 C 94 H 20 111/76 100 05/13/19 02:44 36.6 C 80 16 124/80 95 PG Care Time/CCT Total # of Minutes Spent Total Time Spent with Patient: Total time spent is greater than 50% in coordination of care (as documented) at patient's floor/unit and/or counseling patient: (1) Rhabdomyolysis Rhabdomyolysis type: non-traumatic Qualified Code(s): M62.82 - Rhabdomyolysis
[2019-05-13] MEDS ORDERED: IRON SUCROSE 200 MG in 0.9 % SODIUM CHLORIDE 100 ML IV SCH (15:00)
[2019-05-13] MEDS: QUETIAPINE FUMARATE 100 MG TABLET PO SCH (20:05)
[2019-05-14] MEDS: LORazepam 1 MG/2 ML VIAL IV PRN (01:30)
[2019-05-14] MEDS: MoRPHine SULFATE 4 MG/ML 1 ML CARP\\VIAL IV PRN (01:56)
[2019-05-14] MEDS: VENLAFAXINE HCL XR 37.5 MG CAPXR PO SCH (08:31)
[2019-05-14] MEDS: LITHIUM CARBONATE 450 MG TABCR PO SCH (08:31)
[2019-05-14] MEDS: COLLAGENASE OINT 30 GM TUBE EXT SCH (08:32)
[2019-05-14] MEDS: POLYETHYLENE (MIRALAX) 17 GM PACK PO SCH (10:36)
[2019-05-14 11:17] VITALS: BP 111/77; PULSE 104; TEMP 98.4; O2SAT 96
[2019-05-14] MEDS ORDERED: HALOPERIDOL LACTATE 5 MG/ML 1 ML VIAL IV STA (13:35)
== END 2019-05-14 16:39 | DRG 876 ==
LOC: EDBD 15:17 → ED 15:17 → 1E 05-07 00:33 → SUATTDRO 05-07 00:33 → 1E 05-07 01:23 → 2S 05-08 13:42

== ENCOUNTER 2019-05-14 16:15 | Inpatient (IN) ==
[2019-05-14] MEDS ORDERED: MAGNESIUM HYDROXIDE SUSP 30 ML UDC PO PRN (16:49)
[2019-05-14] MEDS ORDERED: BISMUTH SUBSALICYLATE PER ML OMNICELL CHARGE PO PRN (16:49)
[2019-05-14] MEDS ORDERED: ALUMINUM/MAGNESIUM SUSP 30 ML UDC PO PRN (16:49)
[2019-05-14] MEDS ORDERED: SODIUM CHLORIDE 0.65% NA SOLN 45 ML (OCEAN) PRN (16:49)
[2019-05-14] MEDS ORDERED: HALOPERIDOL 5 MG/2.5 ML UDP PO PRN (16:56)
[2019-05-14] MEDS ORDERED: HALOPERIDOL LACTATE 5 MG/ML 1 ML VIAL IM PRN (16:57)
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
[2019-05-14] MEDS ORDERED: QUETIAPINE FUMARATE 25 MG TABLET PO PRN (20:34)
[2019-05-14] MEDS: LITHIUM CARBONATE 450 MG TABCR PO SCH (21:15)
[2019-05-14] MEDS ORDERED: QUETIAPINE FUMARATE 100 MG TABLET PO SCH (22:00)
[2019-05-14] MEDS: haloperidoL 5 MG TAB PO PRN (22:35)
[2019-05-15] MEDS: ACETAMINOPHEN 325 MG TAB PO PRN ×2 (01:10→12:24)
[2019-05-15] MEDS ORDERED: COLLAGENASE OINT 30 GM TUBE EXT PRN (08:07)
[2019-05-15] MEDS ORDERED: BACITRACIN OINT 15 GM TUBE EXT PRN (08:09)
[2019-05-15] MEDS: haloperidoL 5 MG TAB PO PRN ×3 (08:21→18:53)
[2019-05-15] MEDS: VENLAFAXINE HCL XR 37.5 MG CAPXR PO SCH (08:21)
[2019-05-15] MEDS: IBUPROFEN 600 MG TAB PO PRN ×2 (08:21→18:11)
[2019-05-15] MEDS: LITHIUM CARBONATE 450 MG TABCR PO SCH ×2 (08:21→20:55)
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
[2019-05-15] MEDS ORDERED: SERTRALINE HCL 50 MG TABLET PO ONE (12:39)
[2019-05-15] MEDS ORDERED: LORazepam 2 MG/ML VIAL (IM USE) IM PRN (14:16)
[2019-05-15] MEDS: LORazepam 1 MG TAB PO PRN (18:48)
[2019-05-15] MEDS: QUETIAPINE FUMARATE 100 MG TABLET PO SCH (20:56)
[2019-05-16 07:43] LABS: Glucose Fasting 89 mg/dl (70-99)
[2019-05-16 07:49] LABS: Chol HDL Ratio 2; Cholesterol 120 mg/dl (0-200); HDL Cholesterol 61 mg/dl; LDL Cholesterol Calculated 38 mg/dl; Triglycerides 104 mg/dl (0-150); VLDL Cholesterol 21 mg/dl
[2019-05-16] MEDS: LITHIUM CARBONATE 450 MG TABCR PO SCH ×2 (07:53→21:20)
[2019-05-16] MEDS: VENLAFAXINE HCL XR 37.5 MG CAPXR PO SCH (07:53)
[2019-05-16] MEDS: haloperidoL 5 MG TAB PO PRN ×2 (07:56→14:57)
[2019-05-16] MEDS ORDERED: SERTRALINE HCL 50 MG TABLET PO SCH (09:00)
[2019-05-16] MEDS: IBUPROFEN 600 MG TAB PO PRN (09:51)
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
--- NOTE | 2019-05-16 12:55 | Wound Progress Note ---
Date of Service May 16, 2019 Assessment & Plan (1) Unstageable pressure ulcer of left elbow: I have been following the patient, while an inpatient, with the inpatient Wound Care nurses. I discussed the patient's care with . Jennifer Coe this morning. Photographs taken today have been reviewed. At this time, no additional debridement is needed on the abdominal, thigh or knee wounds . I will have the Wound Care nurse reevaluate her elbow wounds in the morning. I anticipate they will need debridement either tomorrow or next Monday- if still inpatient. If patient is discharged please arrange for follow-up at the Wound Center for continued care. Continue with current dressings and treatment plan. (2) Unstageable pressure ulcer of right elbow: (3) Abrasion of multiple sites of upper arm: (4) Abrasion of multiple sites of lower extremity: (5) Abrasion of multiple sites of trunk: (6) Pressure ulcer with abrasion, blister, partial thickness skin loss involving epidermis and/or dermis: (7) Foot ulceration: Results & Data Vital Signs (Past 12 Hours) Vital Signs Temp Pulse Resp BP 05/16/19 06:38 125 H 116/81 05/16/19 06:00 36.9 C 128 H 18 112/74
[2019-05-16] MEDS: QUETIAPINE FUMARATE 25 MG TABLET PO SCH (13:02)
[2019-05-16] MEDS: LORazepam 1 MG TAB PO PRN (15:24)
[2019-05-16] MEDS: QUETIAPINE FUMARATE 100 MG TABLET PO SCH (21:18)
[2019-05-17] MEDS: LORazepam 1 MG TAB PO PRN ×2 (04:40→17:51)
[2019-05-17] MEDS: ACETAMINOPHEN 325 MG TAB PO PRN (04:40)
[2019-05-17] MEDS: haloperidoL 5 MG TAB PO PRN (04:41)
[2019-05-17] MEDS ORDERED: SERTRALINE HCL 100 MG TABLET PO SCH ×2 (09:00)
[2019-05-17] MEDS: VENLAFAXINE HCL XR 37.5 MG CAPXR PO SCH (09:05)
[2019-05-17] MEDS: LITHIUM CARBONATE 450 MG TABCR PO SCH ×2 (09:05→21:11)
[2019-05-17] MEDS: QUETIAPINE FUMARATE 25 MG TABLET PO SCH (09:05)
[2019-05-17] MEDS: IBUPROFEN 600 MG TAB PO PRN ×2 (09:05→19:01)
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
[2019-05-17] MEDS ORDERED: VENLAFAXINE HCL XR 37.5 MG CAPXR PO ONE (13:15)
[2019-05-17] MEDS ORDERED: risperiDONE 1 MG TABLET PO ONE (13:15)
--- NOTE | 2019-05-17 13:30 | Psychiatric Progress Note ---
Date of Service May 17, 2019 Impression / Recommendations Impression The patient's condition has improved somewhat in the past 24 hours. Although she is not fully cooperative with allowing us to gather collateral information from third parties, she is more amenable to the idea and is able to give fairly reasonable explanations for why she would rather we not contact certain persons or institutions. She also self reports that she is feeling better and less depressed. The patient's affect has become somewhat more animated, although she continues to appear significantly depressed and anxious. Although not prompted, the patient did not spontaneously reveal any delusional believes as part of her thought content. She specifically denies that she is experiencing perceptual disturbances and notes that she is not "hearing" messages from unseen person at this point. Further, the patient is able to clearly provide clinical data that are consistent with her reported diagnosis of bipolar disorder. She does not describe extreme impulsive behaviors associated with elevated mood, and she also does not identify grandiose delusional beliefs. She does, however, describe periodic "mixed" symptoms of hypomania and depression. Her working diagnosis at this point is bipolar 2, depressed phase with psychotic features. We are making several medication changes. She has appeared to be somewhat overly sedated by quetiapine, and she tells us that she does not wish to be cross titrated from venlafaxine to sertraline, which, she says, is why she is declined to take sertraline. Her explanation for this is that she does not want to risk of potentiation of a manic episode, and has not had this problem with venlafaxine in the past. She agrees to an increase in a dose of venlafaxine. She also agreed to a trial of risperidone, to replace quetiapine because of the sedative properties of quetiapine. She notes that she feels that lithium has been a very effective drug in managing her mood alterations, and has found it in the past to be helpful both with depression and with kristin. (1) Acute psychosis: 05/15 - Differential includes primary thought disorder, psychotic mood disorder, stress/trauma induced, or substance induced. - Gather collateral information as able from parents, OP providers, the university, and friends. At this time, she is unwilling to sign releases for anyone except her outpatient psychiatric clinic in her home town. - Increase quetiapine to 150 mg at bedtime, and continue to offer haloperidol 5 mg as needed for psychosis. - Fasting labs ordered for tomorrow for monitoring on an atypical antipsychotic. 05/16 -Complicating the clinical picture is that apparently both parents are accusing each other of being unreliable shoulder boner's. (The patient's parents are .) In particular, the patient's father is insisting that the patient's mother is, herself, psychotic. -We will attempt to review records from her 2 previous psychiatric hospitalizations and from her outpatient provider.. We are currently in the process of obtaining these and scanning them into the record. -The patient acknowledges that she has a known diagnosis of bipolar disorder. Her current presentation seems more consistent with schizophrenia, given the degree of her delusional paranoia, the marked perceptual disturbances, her disorganized thinking, and her thought blocking. However, presumably we are seeing the depressed phase of her bipolar disorder. The patient does endorse feeling depressed. 05/17 -Patient is continuing to tell us that she would prefer that we not obtain records from her previous hospitalization. She is, however, willing to allow us to contact her outpatient psychiatrist. -Contact with the patient's parents, with the patient's permission, but was not particularly helpful. Reportedly, the patient's father wanted to focus almost exclusively on what he considers to be his his ex-'s mental illness, and the patient's mother tended to make negative comments regarding her ex-h usband; i.e. the patient's father. However, collateral information at this point is less important because the patient is now able to cooperate with providing a past psychiatric history. -The patient does have insight into her mental illness and recognizes that she is depressed. Today, she is not attempting to say that her current distress is not associated with depression, and she does not spontaneously voice any paranoid believes. She does, however, acknowledge that she is still feeling somewhat "unsettled" or "unsafe" currently, but notes that this has improved significantly. -She has received a number of doses of haloperidol as as needed medications in the past 24 hours, and this may be contributing to her improvement. -Quetiapine appears to be overly sedating, and we are reluctant to increase the dose further at this point because of the sedation. The patient is in agreement with the plan to discontinue Seroquel in favor of risperidone. We will begin risperidone 1 mg in the morning and 2 mg at bedtime for psychosis and mood stabilization. (2) Bipolar 1 disorder: 05/15 - Get records from outpatient psychiatrist to clarify past diagnoses and treatment. - Continue lithium, check trough level tomorrow. Continue quetiapine and increase to 150mg HS as above. 05/16 -We will increase the patient's dose of quetiapine from 150 mg at bedtime to a dose of 50 mg in the morning and 150 mg at bedtime and continue to titrate as tolerated and required. -Currently, the patient says that she feels that her current medications "are the best," and does not wish to change medications. I would recommend that if she fails to respond to quetiapine after reasonable titration we consider risperidone or even haloperidol. -We will continue the cross titration of sertraline with venlafaxine. Today, we will continue venlafaxine 37.5 mg daily but increase the dose of sertraline to 100 mg daily. 05/17 -As noted above, quetiapine has been discontinued today because of the increased dose of quetiapine may be contributing to her excessive sedation, and this circumstance causes us to be reluctant to increase the dose further. In its place, we have begun risperidone 1 mg in the morning and 2 mg at bedtime and will continue and titrate as tolerated and indicated. (3) Pressure ulcer with abrasion, blister, partial thickness skin loss involving epidermis and/or dermis: 05/15 -appreciate hospitalist and wound care recommendations. She has extensive injuries, including pressure ulcers of bilateral elbows, abrasion of multiple sites of upper arms, legs, knees, abdomen, and breasts, and ulcerations on bilateral feet. See nursing and wound care notes for further information, but wounds will be clean, treated, and dressings changed daily as recommended. 05/16 -Wound care is proceeding as recommended by the hospitalist. See nursing and wound care notes for further information. Multiple healing abrasions are evident on the patient's upper extremities. (4) Anemia: 05/15 -received IV iron on the hospitalist service, with improvement in hemoglobin. She can be followed up as an outpatient, with consideration for iron repletion in the future if needed. 05/17 -Seen and evaluated by the aviation technical systems specialist today. Dressings changed, and dressing schedule was simplified. Wounds debrided and appear to be healing. Risk Factors Assessment Male: No : Yes Do You Have Access To A Gun?: No Health Problems: Yes Mental Health Diagnoses: Yes Substance Use Disorders: No Previous Attempt: No Hopelessness: No Protective Factors Assessment : No Responsible for Young Children: No Employed: No Stable Relationships: No Supportive Family: No Good Rapport with Provider: No Interval History Chief Complaint "Depression". Review of Systems Sleep Information Total Hours of Sleep: 6.75 Sleep Comments: pt on q-15 minute checks Meal Information Percent Meal Consumed - Breakfast: 75 Percent Meal Consumed - Lunch: 80 Percent Meal Consumed - Dinner: 25 Subjective Subjective Patient was seen & assessed and interval progress reviewed with treatment team. I met with the patient individually in order to assess her current mental status, evaluate her response to treatment, make any necessary changes in her treatment regimen and coordination with the patient, and address questions and concerns that may arise. The patient begins by telling me that she is feeling "better" today. More specifically, she reports that she is feeling less "frantic," and is also less worried about her personal safety, although she acknowledges that she continues to have lingering fears regarding the potential for being assaulted. The patient also tells me that her mood has improved somewhat, although she remains depressed. Today, she was able to give a more complete psychiatric history. She notes that she has discrete periods of what she refers to as "kristin" during which she experiences "elated" and sometimes "irritable" mood, with increased energy, some degree of decreased desire for sleep (although she says this has not been major problem), pressured speech (she describes talking so much that it annoys others during manic episodes), and racing thoughts. She also reports that she does not lose touch with reality and does not experience grandiose or expansive delusions. These episodes typically last anywhere from 3-7 days and occur "several" times a year. She would estimate that the manic episodes occur more frequently than twice a year, but less frequently than 5 times a year. The patient also reports that she has discrete episodes of depression. These episodes typically last "about 2 months, or sometimes more," and are characterized by depressed mood, anergia, insomnia, obsessive ruminations, anxious distress, and psychosocial withdrawal. Further, the patient reports that she sometimes has "mixed" features of bipolar disorder wherein she experiences either rapid alternating moods, or racing thoughts combined with depressed mood. We discussed the fact that she has been refusing sertraline, and the patient says that she would prefer to stay with venlafaxine because of its past favorable effect. She adds that she would like to increase the dose of venlafaxine from 37.5 mg to a higher dose, and we discussed increasing to a dose of 75 mg a day. She is also open to the idea of changing her antipsychotic medication from quetiapine to risperidone. She notes the quetiapine is sedating for her and she would be interested in trying an alternative medication. Of note is the fact that she did not mention any belief that she is being followed or otherwise persecuted in the hospital, although, as noted above, she does say she still not feeling entirely safe. Physical Exam Psychiatric Orientation: alert and oriented x 3 Apperance: + disheveled Eye Contact: + fair eye contact Motor Behavior: + psychomotor retardation The patient's speech today is spontaneous. She still speaks slowly and softly, but there is much less frequent delays between Affect: + depressed affect and + anxious affect Brighter and more animated today. "Better. Less frantic." Thought Process: goal directed thought process and linear/logical thought process The patient reports that she is still not feeling entirely safe on the unit, but does not specifically voice any lizzeth delusional believes during the encounter. Suicidal Thoughts: denies suicidal thoughts Homicidal Thoughts: denies homicidal thoughts Hallucinations: no auditory hallucinations Today he does not appear to be responding to internal stimuli, although she generally appears to be somewhat distracted and less engaged in conversation. Cognition: recent memory grossly intact The patient continues to say she does not remember certain things, but it is not clear if this is a memory deficit or simply a matter of avoidance Estimated Intelligence: + above average estimated intelligence Insight: + poor insight The patient's insight seems to have improved. She does understand that she has a mental illness, and she is able to describe and identify the symptoms of her illness.. She also demonstrates that she is familiar with her psychiatric medications, both current and past, and is able to participate fairly actively in the decision-making process regarding medications and other treatments here in the hospital. She does not yet recognize that her belief that she was being persecuted, particularly here in the hospital, is not based in reality. Judgement: + limited judgement Vital Signs (Past 24 Hours) Last Vital Signs Temp 36.6 C 05/17/19 06:41 Pulse 125 H 05/17/19 06:41 Resp 18 05/17/19 06:41 BP 132/94 05/17/19 06:41 Pulse Ox 96 05/14/19 19:38 Results & Data Current Inpatient Medications Current Inpatient Medications: Current Inpatient Medications Acetaminophen (Tylenol) 650 mg PO Q4H PRN PRN Reason: Headache or Minor Fever Stop: 06/13/19 16:48 Last Admin: 05/17/19 04:40 Dose: 650 mg Documented by: Al Hydrox/Mg Hydrox/Simethicone (Maalox) 30 ml PO Q4H PRN PRN Reason: GI Upset Stop: 06/13/19 16:48 Bacitracin (Bacitracin) 1 appln EXT PRN PRN; Protocol PRN Reason: wounds Stop: 06/14/19 08:08 Bismuth Subsalicylate (Kaopectate) 15 ml PO PRN PRN PRN Reason: Loose Stool Stop: 06/13/19 16:48 Collagenase (Santyl) 1 appln EXT UD PRN PRN Reason: wound dressings Stop: 06/14/19 08:06 Last Admin: 05/16/19 11:19 Dose: 1 appln Documented by: Haloperidol (Haldol) 5 mg PO Q4H PRN PRN Reason: agitation/psychosis Stop: 06/13/19 16:56 Last Admin: 05/17/19 04:41 Dose: 5 mg Documented by: Haloperidol Lactate (Haldol) 5 mg IM Q4H PRN PRN Reason: agitation/psychosis Stop: 06/13/19 16:56 Hydroxyzine HCl (Vistaril) 25 mg PO Q4H PRN PRN Reason: Anxiety Stop: 06/13/19 16:48 Hydroxyzine HCl (Vistaril) 50 mg PO HSZ PRN PRN Reason: Insomnia Stop: 06/13/19 16:48 Ibuprofen (Motrin) 600 mg PO Q6H PRN PRN Reason: Pain Stop: 06/14/19 07:56 Last Admin: 05/17/19 09:05 Dose: 600 mg Documented by: [place] Carbonate (Eskalith) 450 mg PO BID TASHA Stop: 06/13/19 20:59 Last Admin: 05/17/19 09:05 Dose: 450 mg Documented by: Lorazepam (Ativan) 1 mg PO Q4H PRN PRN Reason: Anxiety/Agitation Stop: 06/14/19 14:14 Last Admin: 05/17/19 04:40 Dose: 1 mg Documented by: Lorazepam (Ativan) 1 mg IM Q4H PRN PRN Reason: anxiety/agitation Stop: 06/14/19 14:15 Magnesium Hydroxide (Milk Of Magnesia) 30 ml PO DAILY PRN PRN Reason: Constipation Stop: 06/13/19 16:48 Risperidone (Risperdal) 1 mg PO ONE ONE Stop: 05/17/19 13:16 Risperidone (Risperdal) 2 mg PO HS TASHA Stop: 06/16/19 21:59 Risperidone (Risperdal) 1 mg PO QAM TASHA Stop: 06/17/19 08:59 Sodium Chloride ([place] Nasal) 1 - 2 sprays NA PRN PRN PRN Reason: Nasal Dryness/Congestion Stop: 06/13/19 16:48 Venlafaxine HCl (Effexor Extended Release) 37.5 mg PO NOW ONE Stop: 05/17/19 13:01 Venlafaxine HCl (Effexor Extended Release) 75 mg PO QAM TASHA Stop: 06/17/19 08:59 Mental Health & Subst Abuse Tx Lead Software Development Engineer Name of Lead Software Development Engineer: none Post Discharge Appointments Primary Care Physician Name Of Family Doctor: unknown CPT Code CPT Code 87939
[2019-05-17] MEDS ORDERED: PROPRANOLOL HCL 10 MG TAB PO STA (15:09)
[2019-05-17] MEDS ORDERED: ZOLPIDEM TARTRATE 10 MG TAB PO PRN (15:14)
[2019-05-17] MEDS: PROPRANOLOL HCL 10 MG TAB PO SCH (21:11)
[2019-05-17] MEDS: risperiDONE 2 MG TABLET PO SCH (21:11)
[2019-05-18] MEDS: PROPRANOLOL HCL 10 MG TAB PO SCH ×2 (08:53→19:21)
[2019-05-18] MEDS: LITHIUM CARBONATE 450 MG TABCR PO SCH ×2 (08:53→19:21)
[2019-05-18] MEDS: VENLAFAXINE HCL XR 75 MG CAPXR PO SCH (08:53)
[2019-05-18] MEDS: risperiDONE 1 MG TABLET PO SCH (08:53)
--- NOTE | 2019-05-18 15:57 | Psychiatric Progress Note ---
Date of Service May 18, 2019 Impression / Recommendations Impression Patient remains paranoid. Seroquel converted to Risperdal yesterday. Will defer further titration and allow for a day or 2 to demonstrate response before further adjustment. (1) Acute psychosis: 05/15 - Differential includes primary thought disorder, psychotic mood disorder, stress/trauma induced, or substance induced. - Gather collateral information as able from parents, OP providers, the university, and friends. At this time, she is unwilling to sign releases for anyone except her outpatient psychiatric clinic in her home town. - Increase quetiapine to 150 mg at bedtime, and continue to offer haloperidol 5 mg as needed for psychosis. - Fasting labs ordered for tomorrow for monitoring on an atypical antipsychotic. 05/16 -Complicating the clinical picture is that apparently both parents are accusing each other of being unreliable courtroom reporter's. (The patient's parents are .) In particular, the patient's father is insisting that the patient's mother is, herself, psychotic. -We will attempt to review records from her 2 previous psychiatric hospitalizations and from her outpatient provider.. We are currently in the process of obtaining these and scanning them into the record. -The patient acknowledges that she has a known diagnosis of bipolar disorder. Her current presentation seems more consistent with schizophrenia, given the degree of her delusional paranoia, the marked perceptual disturbances, her disorganized thinking, and her thought blocking. However, presumably we are seeing the depressed phase of her bipolar disorder. The patient does endorse feeling depressed. 05/17 -Patient is continuing to tell us that she would prefer that we not obtain records from her previous hospitalization. She is, however, willing to allow us to contact her outpatient psychiatrist. -Contact with the patient's parents, with the patient's permission, but was not particularly helpful. Reportedly, the patient's father wanted to focus almo st exclusively on what he considers to be his his ex-'s mental illness, and the patient's mother tended to make negative comments regarding her ex-; i.e. the patient's father. However, collateral information at this point is less important because the patient is now able to cooperate with providing a past psychiatric history. -The patient does have insight into her mental illness and recognizes that she is depressed. Today, she is not attempting to say that her current distress is not associated with depression, and she does not spontaneously voice any paranoid believes. She does, however, acknowledge that she is still feeling somewhat "unsettled" or "unsafe" currently, but notes that this has improved significantly. -She has received a number of doses of haloperidol as as needed medications in the past 24 hours, and this may be contributing to her improvement. -Quetiapine appears to be overly sedating, and we are reluctant to increase the dose further at this point because of the sedation. The patient is in agreement with the plan to discontinue Seroquel in favor of risperidone. We will begin risperidone 1 mg in the morning and 2 mg at bedtime for psychosis and mood stabilization. 05/18 -Watch for possible EPS. No dystonia today (2) Bipolar 1 disorder: 05/15 - Get records from outpatient psychiatrist to clarify past diagnoses and treatment. - Continue lithium, check trough level tomorrow. Continue quetiapine and increase to 150mg HS as above. 05/16 -We will increase the patient's dose of quetiapine from 150 mg at bedtime to a dose of 50 mg in the morning and 150 mg at bedtime and continue to titrate as tolerated and required. -Currently, the patient says that she feels that her current medications "are the best," and does not wish to change medications. I would recommend that if she fails to respond to quetiapine after reasonable titration we consider risperidone or even haloperidol. -We will continue the cross titration of sertraline with venlafaxine. Today, we will continue venlafaxine 37.5 mg daily but increase the dose of sertraline to 100 mg daily. 05/17 -As noted above, quetiapine has been discontinued today because of the increased dose of quetiapine may be contributing to her excessive sedation, and this circumstance causes us to be reluctant to increase the dose further. In its place, we have begun risperidone 1 mg in the morning and 2 mg at bedtime and will continue and titrate as tolerated and indicated. -May consider further titration of propranolol but will defer for today secondary to concern for increasing fall risk until she appears more alert (3) Pressure ulcer with abrasion, blister, partial thickness skin loss involving epidermis and/or dermis: 05/15 -appreciate hospitalist and wound care recommendations. She has extensive injuries, including pressure ulcers of bilateral elbows, abrasion of multiple sites of upper arms, legs, knees, abdomen, and breasts, and ulcerations on bilateral feet. See nursing and wound care notes for further information, but wounds will be clean, treated, and dressings changed daily as recommended. 05/16 -Wound care is proceeding as recommended by the hospitalist. See nursing and wound care notes for further information. Multiple healing abrasions are evident on the patient's upper extremities. 05/18 -Patient continues to require wound care. She denies increased pain or fever. (4) Anemia: 05/15 -received IV iron on the hospitalist service, with improvement in hemoglobin. She can be followed up as an outpatient, with consideration for iron repletion in the future if needed. 05/17 -Seen and evaluated by the receivables specialist today. Dressings changed, and dressing schedule was simplified. Wounds debrided and appear to be healing. Risk Factors Assessment Male: No : Yes Do You Have Access To A Gun?: No Health Problems: Yes Mental Health Diagnoses: Yes Substance Use Disorders: No Previous Attempt: No Hopelessness: No Protective Factors Assessment : No Responsible for Young Children: No Employed: No Stable Relationships: No Supportive Family: No Good Rapport with Provider: No Interval History Chief Complaint "I am trying to block out the external stimulation". Review of Systems Notes Denies fever or chills Sleep Information Total Hours of Sleep: 7.5 Sleep Comments: pt on q-15 minute checks Meal Information Percent Meal Consumed - Breakfast: 90 Percent Meal Consumed - Lunch: 80 Percent Meal Consumed - Dinner: 50 Subjective Subjective Patient was seen & assessed and interval progress reviewed with treatment team. Patient remains in a private room. She was converted to Risperdal yesterday from Seroquel for additional antipsychotic effect and to minimize sedation. Additionally her Effexor was increased at her request and propranolol added. She remains tachycardic but asymptomatically so. Staff describe her as still very paranoid but not manic appearing. She also looks about the room and possibly responding to internal stimuli. She is attending groups but minimally participatory. Compliant with medication. On interview she reports poor sleep, anxiety, and a sense of unease. She rather illogically describes fearfulness of her same pursuer. She states logically that she knows she is in the locked unit but worries that he will be able to "slither in and out of here." She believes he knows where she is and wants her . She does not perceive this as a logical but cannot further explain or rationalize her concern. She speaks almost entirely with her eyes closed and tells me she is trying to shut out the external stimuli. Physical Exam Psychiatric Orientation: cooperative Apperance: + disheveled Eye Contact: + poor eye contact Motor Behavior: + psychomotor retardation and + EPS (Diminished arm swing. No dystonia); + abnormal motor movements Speech: normal rate/rhythm/volume of speech Despite her subdued outward appearance her speech is fairly quick, clear, and normal in volume Affect: + flat affect; + mood not congruent with affect Mood: + anxious mood Thought Process: + perseveration and thought association intact Thought Content: + paranoid Suicidal Thoughts: denies suicidal thoughts Homicidal Thoughts: denies homicidal thoughts Patient denies hallucinations but appears likely responding to internal stim Cognition: + recent memory not intact and + attention not intact Insight: + severely impaired insight Judgement: + severely impaired judgement Vital Signs (Past 24 Hours) Last Vital Signs Temp 36.7 C 05/18/19 06:50 Pulse 125 H 05/18/19 06:51 Resp 18 05/18/19 06:50 BP 128/87 05/18/19 06:51 Pulse Ox 96 05/14/19 19:38 Results & Data Current Inpatient Medications Current Inpatient Medications: Current Inpatient Medications Acetaminophen (Tylenol) 650 mg PO Q4H PRN PRN Reason: Headache or Minor Fever Stop: 06/13/19 16:48 Last Admin: 05/17/19 04:40 Dose: 650 mg Documented by: Al Hydrox/Mg Hydrox/Simethicone (Maalox) 30 ml PO Q4H PRN PRN Reason: GI Upset Stop: 06/13/19 16:48 Bacitracin (Bacitracin) 1 appln EXT PRN PRN; Protocol PRN Reason: wounds Stop: 06/14/19 08:08 Bismuth Subsalicylate (Kaopectate) 15 ml PO PRN PRN PRN Reason: Loose Stool Stop: 06/13/19 16:48 Collagenase (Santyl) 1 appln EXT UD PRN PRN Reason: wound dressings Stop: 06/14/19 08:06 Last Admin: 05/16/19 11:19 Dose: 1 appln Documented by: Haloperidol (Haldol) 5 mg PO Q4H PRN PRN Reason: agitation/psychosis Stop: 06/13/19 16:56 Last Admin: 05/17/19 04:41 Dose: 5 mg Documented by: Haloperidol Lactate (Haldol) 5 mg IM Q4H PRN PRN Reason: agitation/psychosis Stop: 06/13/19 16:56 Hydroxyzine HCl (Vistaril) 25 mg PO Q4H PRN PRN Reason: Anxiety Stop: 06/13/19 16:48 Hydroxyzine HCl (Vistaril) 50 mg PO HSZ PRN PRN Reason: Insomnia Stop: 06/13/19 16:48 Ibuprofen (Motrin) 600 mg PO Q6H PRN PRN Reason: Pain Stop: 06/14/19 07:56 Last Admin: 05/17/19 19:01 Dose: 600 mg Documented by: [place] Carbonate (Eskalith) 450 mg PO BID [facility] Stop: 06/13/19 20:59 Last Admin: 05/18/19 08:53 Dose: 450 mg Documented by: Lorazepam (Ativan) 1 mg PO Q4H PRN PRN Reason: Anxiety/Agitation Stop: 06/14/19 14:14 Last Admin: 05/17/19 17:51 Dose: 1 mg Documented by: Lorazepam (Ativan) 1 mg IM Q4H PRN PRN Reason: anxiety/agitation Stop: 06/14/19 14:15 Magnesium Hydroxide (Milk Of Magnesia) 30 ml PO DAILY PRN PRN Reason: Constipation Stop: 06/13/19 16:48 Propranolol HCl (Inderal) 10 mg PO BID [facility] Stop: 06/16/19 20:59 Last Admin: 05/18/19 08:53 Dose: 10 mg Documented by: Risperidone (Risperdal) 2 mg PO HS [facility] Stop: 06/16/19 21:59 Last Admin: 05/17/19 21:11 Dose: 2 mg Documented by: Risperidone (Risperdal) 1 mg PO QAM [facility] Stop: 06/17/19 08:59 Last Admin: 05/18/19 08:53 Dose: 1 mg Documented by: Sodium Chloride ([place] Nasal) 1 - 2 sprays NA PRN PRN PRN Reason: Nasal Dryness/Congestion Stop: 06/13/19 16:48 Venlafaxine HCl (Effexor Extended Release) 75 mg PO QAM [facility] Stop: 06/17/19 08:59 Last Admin: 05/18/19 08:53 Dose: 75 mg Documented by: Zolpidem Tartrate (Ambien) 10 mg PO HS PRN PRN Reason: Sleep Stop: 06/16/19 15:13 Mental Health & Subst Abuse Tx Field Cane Scaler Name of Field Cane Scaler: none Post Discharge Appointments Primary Care Physician Name Of Family Doctor: unknown CPT Code CPT Code 80789
[2019-05-18] MEDS: risperiDONE 2 MG TABLET PO SCH (19:21)
[2019-05-19] MEDS: LITHIUM CARBONATE 450 MG TABCR PO SCH ×2 (08:27→21:18)
[2019-05-19] MEDS: PROPRANOLOL HCL 10 MG TAB PO SCH (08:27)
[2019-05-19] MEDS: risperiDONE 1 MG TABLET PO SCH (08:27)
[2019-05-19] MEDS: VENLAFAXINE HCL XR 75 MG CAPXR PO SCH (08:27)
[2019-05-19] MEDS: IBUPROFEN 600 MG TAB PO PRN (12:40)
--- NOTE | 2019-05-19 16:16 | Psychiatric Progress Note ---
Date of Service May 19, 2019 Impression / Recommendations Impression patient appearing more alert and a little more interactive today but still guarded and paranoid. she remains asymptomatically tachycardic. she denies new physical complaints today. It has been one week since she had screening labs and will order as below. (1) Acute psychosis: 05/15 - Differential includes primary thought disorder, psychotic mood disorder, stress/trauma induced, or substance induced. - Gather collateral information as able from parents, OP providers, the university, and friends. At this time, she is unwilling to sign releases for anyone except her outpatient psychiatric clinic in her home town. - Increase quetiapine to 150 mg at bedtime, and continue to offer haloperidol 5 mg as needed for psychosis. - Fasting labs ordered for tomorrow for monitoring on an atypical antipsychotic. 05/16 -Complicating the clinical picture is that apparently both parents are accusing each other of being unreliable audio/visual manager's. (The patient's parents are .) In particular, the patient's father is insisting that the patient's mother is, herself, psychotic. -We will attempt to review records from her 2 previous psychiatric hospitalizations and from her outpatient provider.. We are currently in the process of obtaining these and scanning them into the record. -The patient acknowledges that she has a known diagnosis of bipolar disorder. Her current presentation seems more consistent with schizophrenia, given the degree of her delusional paranoia, the marked perceptual disturbances, her disorganized thinking, and her thought blocking. However, presumably we are seeing the depressed phase of her bipolar disorder. The patient does endorse feeling depressed. 05/17 -Patient is continuing to tell us that she would prefer that we not obtain records from her previous hospitalization. She is, however, willing to allow us to contact her outpatient psychiatrist. -Contact with the patient's parents, with the patient's permission, but was not particularly helpful. Reportedly, the patient's father wanted to focus almost exclusively on what he considers to be his his ex-'s mental illness, and the patient's mother tended to make negative comments regarding her ex- ; i.e. the patient's father. However, collateral information at this point is less important because the patient is now able to cooperate with providing a past psychiatric history. -The patient does have insight into her mental illness and recognizes that she is depressed. Today, she is not attempting to say that her current distress is not associated with depression, and she does not spontaneously voice any paranoid believes. She does, however, acknowledge that she is still feeling somewhat "unsettled" or "unsafe" currently, but notes that this has improved significantly. -She has received a number of doses of haloperidol as as needed medications in the past 24 hours, and this may be contributing to her improvement. -Quetiapine appears to be overly sedating, and we are reluctant to increase the dose further at this point because of the sedation. The patient is in agreement with the plan to discontinue Seroquel in favor of risperidone. We will begin risperidone 1 mg in the morning and 2 mg at bedtime for psychosis and mood stabilization. 05/18 -Watch for possible EPS. No dystonia today 05/19 -appearing less shuffling and more alert today. Still paranoid but a little more interactive. Continue Risperdal unchanged -remains tachycardic. We'll increase propranolol to 20 mg twice a day which may also help with anxiety and feelings of restlessness (2) Bipolar 1 disorder: 05/15 - Get records from outpatient psychiatrist to clarify past diagnoses and treatment. - Continue lithium, check trough level tomorrow. Continue quetiapine and increase to 150mg HS as above. 05/16 -We will increase the patient's dose of quetiapine from 150 mg at bedtime to a dose of 50 mg in the morning and 150 mg at bedtime and continue to titrate as tolerated and required. -Currently, the patient says that she feels that her current medications "are the best," and does not wish to change medications. I would recommend that if she fails to respond to quetiapine after reasonable titration we consider risperidone or even haloperidol. -We will continue the cross titration of sertraline with venlafaxine. Today, we will continue venlafaxine 37.5 mg daily but increase the dose of sertraline to 100 mg daily. 05/17 -As noted above, quetiapine has been discontinued today because of the increased dose of quetiapine may be contributing to her excessive sedation, and this circumstance causes us to be reluctant to increase the dose further. In its place, we have begun risperidone 1 mg in the morning and 2 mg at bedtime and will continue and titrate as tolerated and indicated. -May consider further titration of propranolol but will defer for today secondary to concern for increasing fall risk until she appears more alert 05/19 -Consider reducing or discontinuing Effexor but will defer to primary team (3) Pressure ulcer with abrasion, blister, partial thickness skin loss involving epidermis and/or dermis: 05/15 -appreciate hospitalist and wound care recommendations. She has extensive injuries, including pressure ulcers of bilateral elbows, abrasion of multiple sites of upper arms, legs, knees, abdomen, and breasts, and ulcerations on bilateral feet. See nursing and wound care notes for further information, but wounds will be clean, treated, and dressings changed daily as recommended. 05/16 -Wound care is proceeding as recommended by the hospitalist. See nursing and wound care notes for further information. Multiple healing abrasions are evident on the patient's upper extremities. 05/18 -Patient continues to require wound care. She denies increased pain or fever. 05/19 -lab order for BMP and CBC Monday (4) Anemia: 05/15 -received IV iron on the hospitalist service, with improvement in hemoglobin. She can be followed up as an outpatient, with consideration for iron repletion in the future if needed. 05/17 -Seen and evaluated by the bi specialist today. Dressings changed, and dressing schedule was simplified. Wounds debrided and appear to be healing. 05/19 -CBC tomorrow a.m. Risk Factors Assessment Male: No : Yes Do You Have Access To A Gun?: No Health Problems: Yes Mental Health Diagnoses: Yes Substance Use Disorders: No Previous Attempt: No Hopelessness: No Protective Factors Assessment : No Responsible for Young Children: No Employed: No Stable Relationships: No Supportive Family: No Good Rapport with Provider: No Interval History Chief Complaint "I feel a little more awake". Review of Systems Sleep Information Total Hours of Sleep: 7 Sleep Comments: pt awoke x2 during the night; first to request and drink 2 cranberry juice and the 2nd time is to get ice water independently by the kitchen. pt mcconnell steady. pt on q-15 minute checks Meal Information Percent Meal Consumed - Breakfast: 50 Percent Meal Consumed - Lunch: 90 Percent Meal Consumed - Dinner: 75 Subjective Subjective Patient was seen & assessed and interval progress reviewed with treatment team. patient requested to sleep in the safe room last evening and was observed inspecting every inch of the room such as the cracks along the wall. She was reported by staff to comment that she is making sure that something couldn't "slither" into her room. she is unwilling to discuss this with me today. "I can't." She notes she is feeling a little more alert and awake. She smiles briefly. Denies dizziness or palpitations. Was visited yesterday by father and noted to appear paranoid. Apparently her father indicated that she appeared only at 50% of her normal baseline. Physical Exam Psychiatric Orientation: + guarded Apperance: + disheveled Eye Contact: + poor eye contact gait is a little more fluid soft Affect: + blunted affect Mood: + anxious mood Thought Process: + looseness of associations Thought Content: + paranoid Hallucinations: no auditory hallucinations Cognition: + attention not intact Insight: + impaired insight Judgement: + impaired judgement Vital Signs (Past 24 Hours) Last Vital Signs Temp 36.9 C 05/19/19 06:53 Pulse 111 H 05/19/19 14:14 Resp 18 05/19/19 06:53 BP 107/78 05/19/19 14:14 Pulse Ox 96 05/14/19 19:38 Results & Data Current Inpatient Medications Current Inpatient Medications: Current Inpatient Medications Acetaminophen (Tylenol) 650 mg PO Q4H PRN PRN Reason: Headache or Minor Fever Stop: 06/13/19 16:48 Last Admin: 05/17/19 04:40 Dose: 650 mg Documented by: Al Hydrox/Mg Hydrox/Simethicone (Maalox) 30 ml PO Q4H PRN PRN Reason: GI Upset Stop: 06/13/19 16:48 Bacitracin (Bacitracin) 1 appln EXT PRN PRN; Protocol PRN Reason: wounds Stop: 06/14/19 08:08 Bismuth Subsalicylate (Kaopectate) 15 ml PO PRN PRN PRN Reason: Loose Stool Stop: 06/13/19 16:48 Collagenase (Santyl) 1 appln EXT UD PRN PRN Reason: wound dressings Stop: 06/14/19 08:06 Last Admin: 05/16/19 11:19 Dose: 1 appln Documented by: Haloperidol (Haldol) 5 mg PO Q4H PRN PRN Reason: agitation/psychosis Stop: 06/13/19 16:56 Last Admin: 05/17/19 04:41 Dose: 5 mg Documented by: Haloperidol Lactate (Haldol) 5 mg IM Q4H PRN PRN Reason: agitation/psychosis Stop: 06/13/19 16:56 Hydroxyzine HCl (Vistaril) 25 mg PO Q4H PRN PRN Reason: Anxiety Stop: 06/13/19 16:48 Hydroxyzine HCl (Vistaril) 50 mg PO HSZ PRN PRN Reason: Insomnia Stop: 06/13/19 16:48 Ibuprofen (Motrin) 600 mg PO Q6H PRN PRN Reason: Pain Stop: 06/14/19 07:56 Last Admin: 05/19/19 12:40 Dose: 600 mg Documented by: [place] Carbonate (Eskalith) 450 mg PO BID [facility] Stop: 06/13/19 20:59 Last Admin: 05/19/19 08:27 Dose: 450 mg Documented by: Lorazepam (Ativan) 1 mg PO Q4H PRN PRN Reason: Anxiety/Agitation Stop: 06/14/19 14:14 Last Admin: 05/17/19 17:51 Dose: 1 mg Documented by: Lorazepam (Ativan) 1 mg IM Q4H PRN PRN Reason: anxiety/agitation Stop: 06/14/19 14:15 Magnesium Hydroxide (Milk Of Magnesia) 30 ml PO DAILY PRN PRN Reason: Constipation Stop: 06/13/19 16:48 Propranolol HCl (Inderal) 20 mg PO BID [facility] Stop: 06/18/19 20:59 Risperidone (Risperdal) 2 mg PO HS [facility] Stop: 06/16/19 21:59 Last Admin: 05/18/19 19:21 Dose: 2 mg Documented by: Risperidone (Risperdal) 1 mg PO QAM [facility] Stop: 06/17/19 08:59 Last Admin: 05/19/19 08:27 Dose: 1 mg Documented by: Sodium Chloride ([place] Nasal) 1 - 2 sprays NA PRN PRN PRN Reason: Nasal Dryness/Congestion Stop: 06/13/19 16:48 Venlafaxine HCl (Effexor Extended Release) 75 mg PO QAM [facility] Stop: 06/17/19 08:59 Last Admin: 05/19/19 08:27 Dose: 75 mg Documented by: Zolpidem Tartrate (Ambien) 10 mg PO HS PRN PRN Reason: Sleep Stop: 06/16/19 15:13 Mental Health & Subst Abuse Tx Extract Mixer Name of Extract Mixer: none Post Discharge Appointments Primary Care Physician Name Of Family Doctor: unknown CPT Code CPT Code 51918
[2019-05-19] MEDS: risperiDONE 2 MG TABLET PO SCH (21:18)
[2019-05-19] MEDS: PROPRANOLOL HCL 20 MG TAB PO SCH (21:19)
[2019-05-20 06:50] LABS: Basophils # (auto) 0.03 K/uL (0-0.2); Basophils % (auto) 0.5 %; Eosinophils # (auto) 0.07 K/uL (0-0.5); Eosinophils % (auto) 1.1 %; Hematocrit (blood only) 35.3 % (37-47); Hemoglobin 11.1 g/dL (12.0-16.0); Immature Granulocytes # (auto) 0.02 K/uL (0.00-0.02); Immature Granulocytes % (auto) 0.3 %; Lymphocytes # (auto) 1.42 K/uL (1.2-3.4); Mean Corpuscular Hemoglobin 30.2 pg (25-34); Mean Corpuscular Hgb Conc 31.4 g/dL (32-36); Mean Corpuscular Volume 96.2 fL (80-100); Mean Platelet Volume 9.8 fL (7.4-10.4); Monocytes # (auto) 0.64 K/uL (0.11-0.59); Monocytes % (auto) 10.4 %; Neutrophils % (auto) 64.7 %; Platelet Count 439 K/uL (130-400); RDW Coefficient of Variation 14.1 % (11.5-14.5); RDW Standard Deviation 48.4 fL (36.4-46.3); Red Blood Count 3.67 M/uL (4.2-5.4); White Blood Count 6.18 K/uL (4.8-10.8)
[2019-05-20 07:24] LABS: BUN Creatinine Ratio 13.4 (10-20); Blood Urea Nitrogen 8 mg/dl (7-18); Calcium 9.5 mg/dl (8.5-10.1); Carbon Dioxide 25 mmol/L (21-32); Chloride 112 mmol/L (98-107); Creatinine Clr Calc Pharmacy 164.9 ml/min; Est GFR (African American) > 150.0; Est GFR (Non-African American) 131.8; Glucose 87 mg/dl (70-99); Sodium 144 mmol/L (136-145)
[2019-05-20] MEDS: VENLAFAXINE HCL XR 75 MG CAPXR PO SCH (09:23)
[2019-05-20] MEDS: LITHIUM CARBONATE 450 MG TABCR PO SCH ×2 (09:24→21:47)
[2019-05-20] MEDS: risperiDONE 1 MG TABLET PO SCH (09:24)
[2019-05-20] MEDS: PROPRANOLOL HCL 20 MG TAB PO SCH ×2 (09:24→21:47)
--- NOTE | 2019-05-20 13:56 | Wound Progress Note ---
Date of Service May 20, 2019 Assessment & Plan (1) Abrasion of multiple sites of upper arm: Wounds healed. (2) Abrasion of multiple sites of lower extremity: Wounds healed. (3) Abrasion of multiple sites of trunk: Wounds healed. (4) Pressure ulcer with abrasion, blister, partial thickness skin loss involving epidermis and/or dermis: The Breasts and Abdomen have Stage II pressure ulcers which are healing. No debridement needed today. These wounds will be dressed with Hydrogel pads and tegaderm changed qod and prn. The Thigh wounds are healing. No debridement needed today. These wounds will be dressed with Kaltostat and tegaderm changed qod and prn. The knee wounds are Stage II pressure ulcers. They both needed debridement. With the patient's permission and after the application of topical lidocaine , the wounds were debrided with a curette and scissors and forceps of slough and eschar. Scant bleeding occurred which was controlled with pressure. Wounds will be dressed with Kaltostat and tegaderm changed qod and prn. The multiple wounds on the feet are improved. . Wounds did require debridement. With the patient's permission and after the application of topical lidocaine, the wounds were debrided with a curette, and scissors and forceps of slough and eschar. No bleeding occurred . The patient would no let me continue with debridement and the heel wound was not debrided. All wounds will be dressed with Kaltostat and tegaderm changed qod and prn. (5) Stage II pressure ulcer of right elbow: Wound is improved. Wound did require debridement. With the patient's permission and after the application of topical lidocaine , the wound was debrided with a curette and scissors and forceps of slough and eschar. Scant bleeding occurred which was controlled with pressure. Wound will be dressed with Kaltostat and tegaderm changed qod and prn. (6) Stage III pressure ulcer of left elbow: Wound is improved. Wound did require debridement. With the patient's permission and after the application of topical lidocaine , the wound was debrided with a curette and scissors and forceps of slough and eschar. Scant bleeding occurred which was controlled with pressure. Wound will be dressed with Kaltostat and tegaderm changed qod and prn. I will continue to follow the patient while inpatient. Once discharged she can be seen in the Wound .Center Debridement of the elbows, knees and feet represents a nonexcisional debridement of 60 cm2. Total time at bedside 45min. Subjective Patient was seen today for reevaluation of multiple pressure ulcers and traumatic wounds to her extremities, torso and abdomen. The patient states her pain has diminished although she continues with discomfort in her knees. Her Breast and Abdominal wounds are being dressed with Hydrogel pad and tegaderm. All other wounds are being dressed with aquacel AG and tegaderm (elbows and thighs) Optifoam(knees) and gauze (feet ) She voices no other complaints regarding her wounds. . Physical Exam Physical Exam: Patient's vital signs were reviewed. She is afebrile. tachycardic Alert in no acute distess. Appears calmer than on previous visits. Wounds were not re measured today. Wound #1 , is a cluster of two Stage II Pressure ulcers on the abdomen. Wound bed shows increase epidermal budding. No necrotic tissue or slough. Scant drainage. No increased warmth or increased erythema. No odor. Wound #2 can now be staged as a Stage II Pressure ulcer on the left anterior thigh Most of the wound has re epithelized . Few open areas that have increased epidermal budding Periwound area has mild erythema. No increased warmth. No drainage or odor present. Wound #3 on the left achilles area is covered with slough. No drainage or odor. Periwound area is not inflamed. Wound #4 on the right breast is as Stage II pressure ulcer. Wound base shows increased epidermal budding and re epithelization Periwound area is not inflamed. Wound #5, is a Stage II pressure ulcer on the left breast which is a cluster of two wounds. Wounds are almost healed with a small area that is open. Increased epidermal budding noted. No drainage or odor. Periwound area is not inflamed. Wound #6 on the left fifth toe is covered with dry eschar. No odor or drainage. Periwound area is not inflamed Wound #7 on the left great toe. Wound is covered with eschar. No drainage or odor. Wound #8 on the right fifth toe is covered with eschar. No drainage or odor. Periwound area is not inflamed. . Wound #9 on the right plantar is covered with eschar and slough. No drainage or odor. Periwound area is not inflamed Wound #10 on the left plantar foot is covered with eschar and slough. No drainage or odor. Periwound area is mildly inflamed. Wound #11 on the right elbow is covered by slogh.The eschar has veterinary medicine scientist off. Increased re epithelialization noted. No odor or drainage. . Periwound area is not inflammed. Wound #12 on the left elbow is covered by fibrous slough. Increase epithelial budding along the periphery. Eschar has lifted. Central area is a Stage III ulcer No drainage or odor. Periwound area is mildly inflamed. Wound #13 on the right forearm is healed. Wound #14 on the left arm is healed. Wound # 15 is a stage II ulcer on the right anterior knee . Wound is covered with slough and eschar. No drainage or odor. Periwound area is not inflamed. Wound # 16 is a stage II pressure ulcer on the left anterior knee. Wound is covered with slough and eschar no drainage or odor. Periwound area is mildly inflammed. Wound #17 on the right ant thigh is a Stage II pressure ulcer. Wound is covered with slough. No odor or drainage. Periwound area is not inflamed Results & Data Vital Signs (Past 12 Hours) Vital Signs Temp Pulse Resp BP 05/20/19 06:40 36.8 C 112 H 18 116/80
--- NOTE | 2019-05-20 14:30 | Psychiatric Progress Note ---
Date of Service May 20, 2019 Impression / Recommendations Impression Pt declined initial interaction with this provider, but was more agreeable in the afternoon. She continues to be paranoid and guarded, but pleasant with superficial conversation. She denies physical concerns. Pt is questioning the need for some medications, feeling risperidone is not necessary but agreeing to continue to take the medication. Pt reports she is "not having any psychotic symptoms", but continues to appear paranoid and at times seems to be responding to internal stimuli. While she is making improvements, she is not yet in a place where she is able to engaged in insightful or reality-based conversation. Pt is aware that it is recommended that she withdrawal from school for the remainder of the semester, but has been scheduled for a meeting with [employer] to discuss her options further. She continues to require inpatient psychiatric treatment, as her ongoing paranoia and lack of clear/coherent thought process put her at higher risk of harm to self or others if she is discharged prematurely. (1) Acute psychosis: 05/15 - Differential includes primary thought disorder, psychotic mood disorder, stress/trauma induced, or substance induced. - Gather collateral information as able from parents, OP providers, the university, and friends. At this time, she is unwilling to sign releases for anyone except her outpatient psychiatric clinic in her home town. - Increase quetiapine to 150 mg at bedtime, and continue to offer haloperidol 5 mg as needed for psychosis. - Fasting labs ordered for tomorrow for monitoring on an atypical antipsychotic. 05/16 -Complicating the clinical picture is that apparently both parents are accusing each other of being unreliable cash posting specialist's. (The patient's parents are .) In particular, the patient's father is insisting that the patient's mother is, herself, psychotic. -We will attempt to review records from her 2 previous psychiatric hospitalizations and from her outpatient provider.. We are currently in the process of obtaining these and scanning them into the record. -The patient acknowledges that she has a known diagnosis of bipolar disorder. Her current presentation seems more consistent with schizophrenia, given the degree of her delusional paranoia, the marked perceptual disturbances, her disorganized thinking, and her thought blocking. However, presumably we are seeing the depressed phase of her bipolar disorder. The patient does endorse feeling depressed. 05/17 -Patient is continuing to tell us that she would prefer that we not obtain records from her previous hospitalization. She is, however, willing to allow us to contact her outpatient psychiatrist. -Contact with the patient's parents, with the patient's permission, but was not particularly helpful. Reportedly, the patient's father wanted to focus almost exclusively on what he considers to be his his ex-'s mental illness, and the patient's mother tended to make negative comments regarding her ex- ; i.e. the patient's father. However, collateral information at this point is less important because the patient is now able to cooperate with providing a past psychiatric history. -The patient does have insight into her mental illness and recognizes that she is depressed. Today, she is not attempting to say that her current distress is not associated with depression, and she does not spontaneously voice any paranoid believes. She does, however, acknowledge that she is still feeling somewhat "unsettled" or "unsafe" currently, but notes that this has improved significantly. -She has received a number of doses of haloperidol as as needed medications in the past 24 hours, and this may be contributing to her improvement. -Quetiapine appears to be overly sedating, and we are reluctant to increase the dose further at this point because of the sedation. The patient is in agreement with the plan to discontinue Seroquel in favor of risperidone. We will begin risperidone 1 mg in the morning and 2 mg at bedtime for psychosis and mood stabilization. 05/18 -Watch for possible EPS. No dystonia today 05/19 -appearing less shuffling and more alert today. Still paranoid but a little more interactive. Continue Risperdal unchanged -remains tachycardic. We'll increase propranolol to 20 mg twice a day which may also help with anxiety and feelings of restlessness 05/20 - Pt remains paranoid in presentation, willing for superficial conversation - Tolerating titration of propranolol to 20mg BID (2) Bipolar 1 disorder: 05/15 - Get records from outpatient psychiatrist to clarify past diagnoses and treatment. - Continue lithium, check trough level tomorrow. Continue quetiapine and increase to 150mg HS as above. 05/16 -We will increase the patient's dose of quetiapine from 150 mg at bedtime to a dose of 50 mg in the morning and 150 mg at bedtime and continue to titrate as tolerated and required. -Currently, the patient says that she feels that her current medications "are the best," and does not wish to change medications. I would recommend that if she fails to respond to quetiapine after reasonable titration we consider risperidone or even haloperidol. -We will continue the cross titration of sertraline with venlafaxine. Today, we will continue venlafaxine 37.5 mg daily but increase the dose of sertraline to 100 mg daily. 05/17 -As noted above, quetiapine has been discontinued today because of the increased dose of quetiapine may be contributing to her excessive sedation, and this circumstance causes us to be reluctant to increase the dose further. In its place, we have begun risperidone 1 mg in the morning and 2 mg at bedtime and will continue and titrate as tolerated and indicated. -May consider further titration of propranolol but will defer for today secondary to concern for increasing fall risk until she appears more alert 05/19 -Consider reducing or discontinuing Effexor but will defer to primary team 05/20 - Continue current medication regimen, pt unwilling for other changes at this time (3) Pressure ulcer with abrasion, blister, partial thickness skin loss involving epidermis and/or dermis: 05/15 -appreciate hospitalist and wound care recommendations. She has extensive injuries, including pressure ulcers of bilateral elbows, abrasion of multiple sites of upper arms, legs, knees, abdomen, and breasts, and ulcerations on bilateral feet. See nursing and wound care notes for further information, but wounds will be clean, treated, and dressings changed daily as recommended. 05/16 -Wound care is proceeding as recommended by the hospitalist. See nursing and wound care notes for further information. Multiple healing abrasions are evident on the patient's upper extremities. 05/18 -Patient continues to require wound care. She denies increased pain or fever. 05/19 -lab order for BMP and CBC 05/20 - Continue treatment recommendation per wound care team - CBC showing slight improvement in RBC, hemoglobin, and hematocrit - BMP showing slightly low creatinine at 0.58 (4) Anemia: 05/15 -received IV iron on the hospitalist service, with improvement in hemoglobin. She can be followed up as an outpatient, with consideration for iron repletion in the future if needed. 05/17 -Seen and evaluated by the disability specialist today. Dressings changed, and dressing schedule was simplified. Wounds debrided and appear to be healing. 05/19 -CBC tomorrow a.m. 05/20 - Slight improvements in RBC, hemoglobin, and hematocrit - though these values remain low Risk Factors Assessment Male: No : Yes Do You Have Access To A Gun?: No Health Problems: Yes Mental Health Diagnoses: Yes Substance Use Disorders: No Previous Attempt: No Hopelessness: No Protective Factors Assessment : No Responsible for Young Children: No Employed: No Stable Relationships: No Supportive Family: No Good Rapport with Provider: No Interval History Chief Complaint "Um, can we not talk right now?" Review of Systems Notes Constitutional: reports difficulty maintaining sleep at night, leading to daytime fatigue Cardiovascular: denied Respiratory: denied Gastrointestinal: denied Neurological: denied Psychiatric: denies symptoms other than stated above Total of at least 10 systems reviewed, pertinent positives as above and in HPI. Sleep Information Total Hours of Sleep: 5.75 Sleep Comments: pt slept in the quiet room during the night. pt on q-15 minute checks Meal Information Percent Meal Consumed - Breakfast: 50 Percent Meal Consumed - Lunch: 85 Percent Meal Consumed - Dinner: 40 Subjective Subjective Patient was seen & assessed and interval progress reviewed with treatment team. Staff report the patient remains significantly paranoid. She signed an [employer] for [employer] through the university, but continues to verbalize a desire to return to classes soon. Pt rated her mood a 5/10 and "confused" last evening. Pt was seen today to assess progress since admission. Earlier in the day, the patient requested not to speak with this provider, stating "I just don't feel that great." Patient was encouraged to discuss these concerns with this provider so that they could be addressed, but she declined. She was willing later in the afternoon to revisit the conversation. She states that she is feeling "good" and denies concerns. She states, "and I just want you to be aware that I have not been having any psychotic symptoms. I will keep taking the Risperdal for stability reasons, but I'm not really sure it's necessary." Pt denied auditory and visual hallucinations and denied symptoms associated with paranoia or delusional thought processes. Despite denying these symptoms, patient continues to present as paranoid, declining to discuss certain topics and hesitant to share thoughts with others. She was also reportedly paranoid during conversations earlier in the day related to decisions about returning to school. Pt states to this provider, "I still have not decided yet," but she has been made aware of recommendations from several individuals that she withdrawal for the remainder of the semester and focus on her health. Pt does state that her biggest needs at this time are "making sure my wounds are cared for and ma ben sure my sleep is ok." Pt states she has been tired during the day due to not sleeping well at night, reporting frequent awakening. Pt was reminded about prn hydroxyzine, and she was encouraged to consider the medication for the next few nights in an attempt to reset her sleep cycle. Pt is declining this recommendation at this time. Pt denies SI and other specific needs at this time. Physical Exam Psychiatric Orientation: alert, cooperative (superficially) and + guarded Apperance: appropriately dressed (in scrubs and a t-shirt), + disheveled and appeared stated age Eye Contact: + fair eye contact (brief moments of direct eye contact, otherwise prolonged staring at floor) Motor Behavior: no abnormal motor movements (but ambulation and movements are slow and cautious ) and + psychomotor retardation Speech: normal rate/rhythm/volume of speech (soft tone, low volume) Affect: + flat affect Mood: no depressed mood ("I'm fine") Thought Process: + concrete thought process (limited willingness for deep conversation) Thought Content: + paranoid Suicidal Thoughts: denies suicidal thoughts Homicidal Thoughts: denies homicidal thoughts Hallucinations: no auditory hallucinations and no visual hallucinations Cognition: attention grossly intact and language grossly intact Insight: + impaired insight Judgement: + impaired judgement Vital Signs (Past 24 Hours) Last Vital Signs Temp 36.8 C 05/20/19 06:40 Pulse 112 H 05/20/19 06:40 Resp 18 05/20/19 06:40 BP 116/80 05/20/19 06:40 Pulse Ox 96 05/14/19 19:38 Results & Data Laboratory Results Laboratory Results - last 24 hr 05/20/19 05/20/19 06:36 06:36 WBC 6.18 RBC 3.67 L Hgb 11.1 L Hct 35.3 L MCV 96.2 MCH 30.2 MCHC 31.4 L RDW Std Deviation 48.4 H RDW Coeff of Ilene 14.1 Plt Count 439 H MPV 9.8 Immature Gran % (Auto) 0.3 Neut % (Auto) 64.7 Lymph % (Auto) 23.0 Stearns % (Auto) 10.4 Eos % (Auto) 1.1 Baso % (Auto) 0.5 Immature Gran # (Auto) 0.02 Neut # (Auto) 4.00 Lymph # (Auto) 1.42 Stearns # (Auto) 0.64 H Eos # (Auto) 0.07 Baso # (Auto) 0.03 Sodium 144 Potassium 4.0 Chloride 112 H Carbon Dioxide 25 Anion Gap 7.0 BUN 8 Creatinine 0.58 L Est Cr Clr Drug Dosing 164.9 Est GFR ( Amer) > 150.0 Est GFR (Non-Af Amer) 131.8 BUN/Creatinine Ratio 13.4 Glucose 87 Calcium 9.5 Current Inpatient Medications Current Inpatient Medications: Current Inpatient Medications Acetaminophen (Tylenol) 650 mg PO Q4H PRN PRN Reason: Headache or Minor Fever Stop: 06/13/19 16:48 Last Admin: 05/17/19 04:40 Dose: 650 mg Documented by: Al Hydrox/Mg Hydrox/Simethicone (Maalox) 30 ml PO Q4H PRN PRN Reason: GI Upset Stop: 06/13/19 16:48 Bacitracin (Bacitracin) 1 appln EXT PRN PRN; Protocol PRN Reason: wounds Stop: 06/14/19 08:08 Bismuth Subsalicylate (Kaopectate) 15 ml PO PRN PRN PRN Reason: Loose Stool Stop: 06/13/19 16:48 Collagenase (Santyl) 1 appln EXT UD PRN PRN Reason: wound dressings Stop: 06/14/19 08:06 Last Admin: 05/16/19 11:19 Dose: 1 appln Documented by: Haloperidol (Haldol) 5 mg PO Q4H PRN PRN Reason: agitation/psychosis Stop: 06/13/19 16:56 Last Admin: 05/17/19 04:41 Dose: 5 mg Documented by: Haloperidol Lactate (Haldol) 5 mg IM Q4H PRN PRN Reason: agitation/psychosis Stop: 06/13/19 16:56 Hydroxyzine HCl (Vistaril) 25 mg PO Q4H PRN PRN Reason: Anxiety Stop: 06/13/19 16:48 Hydroxyzine HCl (Vistaril) 50 mg PO HSZ PRN PRN Reason: Insomnia Stop: 06/13/19 16:48 Ibuprofen (Motrin) 600 mg PO Q6H PRN PRN Reason: Pain Stop: 06/14/19 07:56 Last Admin: 05/19/19 12:40 Dose: 600 mg Documented by: [place] Carbonate (Eskalith) 450 mg PO BID TASHA Stop: 06/13/19 20:59 Last Admin: 05/20/19 09:24 Dose: 450 mg Documented by: Lorazepam (Ativan) 1 mg PO Q4H PRN PRN Reason: Anxiety/Agitation Stop: 06/14/19 14:14 Last Admin: 05/17/19 17:51 Dose: 1 mg Documented by: Lorazepam (Ativan) 1 mg IM Q4H PRN PRN Reason: anxiety/agitation Stop: 06/14/19 14:15 Magnesium Hydroxide (Milk Of Magnesia) 30 ml PO DAILY PRN PRN Reason: Constipation Stop: 06/13/19 16:48 Propranolol HCl (Inderal) 20 mg PO BID TASHA Stop: 06/18/19 20:59 Last Admin: 05/20/19 09:24 Dose: 20 mg Documented by: Risperidone (Risperdal) 2 mg PO HS TASHA Stop: 06/16/19 21:59 Last Admin: 05/19/19 21:18 Dose: 2 mg Documented by: Risperidone (Risperdal) 1 mg PO QAM TASHA Stop: 06/17/19 08:59 Last Admin: 05/20/19 09:24 Dose: 1 mg Documented by: Sodium Chloride (Screven Nasal) 1 - 2 sprays NA PRN PRN PRN Reason: Nasal Dryness/Congestion Stop: 06/13/19 16:48 Venlafaxine HCl (Effexor Extended Release) 75 mg PO QAM TASHA Stop: 06/17/19 08:59 Last Admin: 05/20/19 09:23 Dose: 75 mg Documented by: Zolpidem Tartrate (Ambien) 10 mg PO HS PRN PRN Reason: Sleep Stop: 06/16/19 15:13 Mental Health & Subst Abuse Tx Medical Delivery Driver Name of Medical Delivery Driver: none Post Discharge Appointments Primary Care Physician Name Of Family Doctor: unknown CPT Code CPT Code 78878
[2019-05-20] MEDS: risperiDONE 2 MG TABLET PO SCH (21:48)
[2019-05-21] MEDS: LITHIUM CARBONATE 450 MG TABCR PO SCH ×2 (09:06→21:15)
[2019-05-21] MEDS: risperiDONE 1 MG TABLET PO SCH (09:06)
[2019-05-21] MEDS: VENLAFAXINE HCL XR 75 MG CAPXR PO SCH (09:06)
[2019-05-21] MEDS: PROPRANOLOL HCL 20 MG TAB PO SCH ×2 (09:07→21:15)
[2019-05-21] MEDS: haloperidoL 5 MG TAB PO PRN (11:16)
--- NOTE | 2019-05-21 12:00 | Psychiatric Progress Note ---
Date of Service May 21, 2019 Impression / Recommendations Impression Pt declined initial interaction with this provider, but was more agreeable in the afternoon. She continues to be paranoid and guarded, but pleasant with superficial conversation. She denies physical concerns. Pt is questioning the need for some medications, feeling risperidone is not necessary but agreeing to continue to take the medication. Pt reports she is "not having any psychotic symptoms", but continues to appear paranoid and at times seems to be responding to internal stimuli. While she is making improvements, she is not yet in a place where she is able to engaged in insightful or reality-based conversation. Pt is aware that it is recommended that she withdrawal from school for the remainder of the semester, but has been scheduled for a meeting with Student Care and Advocacy to discuss her options further. She continues to require inpatient psychiatric treatment, as her ongoing paranoia and lack of clear/coherent thought process put her at higher risk of harm to self or others if she is discharged prematurely. (1) Acute psychosis: 05/15 - Differential includes primary thought disorder, psychotic mood disorder, stress/trauma induced, or substance induced. - Gather collateral information as able from parents, OP providers, the university, and friends. At this time, she is unwilling to sign releases for anyone except her outpatient psychiatric clinic in her home town. - Increase quetiapine to 150 mg at bedtime, and continue to offer haloperidol 5 mg as needed for psychosis. - Fasting labs ordered for tomorrow for monitoring on an atypical antipsychotic. 05/16 -Complicating the clinical picture is that apparently both parents are accusing each other of being unreliable hydraulic modeling engineer's. (The patient's parents are .) In particular, the patient's father is insisting that the patient's mother is, herself, psychotic. -We will attempt to review records from her 2 previous psychiatric hospitalizations and from her outpatient provider.. We are currently in the process of obtaining these and scanning them into the record. -The patient acknowledges that she has a known diagnosis of bipolar disorder. Her current presentation seems more consistent with schizophrenia, given the degree of her delusional paranoia, the marked perceptual disturbances, her disorganized thinking, and her thought blocking. However, presumably we are seeing the depressed phase of her bipolar disorder. The patient does endorse feeling depressed. 05/17 -Patient is continuing to tell us that she would prefer that we not obtain records from her previous hospitalization. She is, however, willing to allow us to contact her outpatient psychiatrist. -Contact with the patient's parents, with the patient's permission, but was not particularly helpful. Reportedly, the patient's father wanted to focus almost exclusively on what he considers to be his his ex-'s mental illness, and the patient's mother tended to make negative comments regarding her ex- ; i.e. the patient's father. However, collateral information at this point is less important because the patient is now able to cooperate with providing a past psychiatric history. -The patient does have insight into her mental illness and recognizes that she is depressed. Today, she is not attempting to say that her current distress is not associated with depression, and she does not spontaneously voice any paranoid believes. She does, however, acknowledge that she is still feeling somewhat "unsettled" or "unsafe" currently, but notes that this has improved significantly. -She has received a number of doses of haloperidol as as needed medications in the past 24 hours, and this may be contributing to her improvement. -Quetiapine appears to be overly sedating, and we are reluctant to increase the dose further at this point because of the sedation. The patient is in agreement with the plan to discontinue Seroquel in favor of risperidone. We will begin risperidone 1 mg in the morning and 2 mg at bedtime for psychosis and mood stabilization. 05/18 -Watch for possible EPS. No dystonia today 05/19 -appearing less shuffling and more alert today. Still paranoid but a little more interactive. Continue Risperdal unchanged -remains tachycardic. We'll increase propranolol to 20 mg twice a day which may also help with anxiety and feelings of restlessness 05/20 - Pt remains paranoid in presentation, willing for superficial conversation - Tolerating titration of propranolol to 20mg BID 05/21 - Continue as above, consider need to further titration of risperidone, pt unwilling to discuss these changes today (2) Bipolar 1 disorder: 05/15 - Get records from outpatient psychiatrist to clarify past diagnoses and treatment. - Continue lithium, check trough level tomorrow. Continue quetiapine and increase to 150mg HS as above. 05/16 -We will increase the patient's dose of quetiapine from 150 mg at bedtime to a dose of 50 mg in the morning and 150 mg at bedtime and continue to titrate as tolerated and required. -Currently, the patient says that she feels that her current medications "are the best," and does not wish to change medications. I would recommend that if she fails to respond to quetiapine after reasonable titration we consider risperidone or even haloperidol. -We will continue the cross titration of sertraline with venlafaxine. Today, we will continue venlafaxine 37.5 mg daily but increase the dose of sertraline to 100 mg daily. 05/17 -As noted above, quetiapine has been discontinued today because of the increased dose of quetiapine may be contributing to her excessive sedation, and this circumstance causes us to be reluctant to increase the dose further. In its place, we have begun risperidone 1 mg in the morning and 2 mg at bedtime and will continue and titrate as tolerated and indicated. -May consider further titration of propranolol but will defer for today secondary to concern for increasing fall risk until she appears more alert 05/19 -Consider reducing or discontinuing Effexor but will defer to primary team 05/20 - Continue current medication regimen, pt unwilling for other changes at this time 05/21 - Continue as above, patient verbalizes limited willingness for additional medication changes - She is demonstrating some improvement in her condition, though continues to appear paranoid on the unit (3) Pressure ulcer with abrasion, blister, partial thickness skin loss involving epidermis and/or dermis: 05/15 -appreciate hospitalist and wound care recommendations. She has extensive injuries, including pressure ulcers of bilateral elbows, abrasion of multiple sites of upper arms, legs, knees, abdomen, and breasts, and ulcerations on bilateral feet. See nursing and wound care notes for further information, but wounds will be clean, treated, and dressings changed daily as recommended. 05/16 -Wound care is proceeding as recommended by the hospitalist. See nursing and wound care notes for further information. Multiple healing abrasions are evident on the patient's upper extremities. 05/18 -Patient continues to require wound care. She denies increased pain or fever. 05/19 -lab order for BMP and CBC 05/20 - Continue treatment recommendation per wound care team - CBC showing slight improvement in RBC, hemoglobin, and hematocrit - BMP showing slightly low creatinine at 0.58 (4) Anemia: 05/15 -received IV iron on the hospitalist service, with improvement in hemoglobin. She can be followed up as an outpatient, with consideration for iron repletion in the future if needed. 05/17 -Seen and evaluated by the differential specialist today. Dressings changed, and dressing schedule was simplified. Wounds debrided and appear to be healing. 05/19 -CBC tomorrow a.m. 05/20 - Slight improvements in RBC, hemoglobin, and hematocrit - though these values remain low Risk Factors Assessment Male: No : Yes Do You Have Access To A Gun?: No Health Problems: Yes Mental Health Diagnoses: Yes Substance Use Disorders: No Previous Attempt: No Hopelessness: No Protective Factors Assessment : No Responsible for Young Children: No Employed: No Stable Relationships: No Supportive Family: No Good Rapport with Provider: No Interval History Chief Complaint "Um, ok. Just coloring." Review of Systems Notes Constitutional: reports improved sleep last evening, but hadoop engineer awakening at 3am Cardiovascular: denied Respiratory: denied Gastrointestinal: denied Neurological: denied Psychiatric: denies symptoms other than stated above Total of at least 10 systems reviewed, pertinent positives as above and in HPI. Sleep Information Total Hours of Sleep: 7.75 Sleep Comments: pt slept in the quiet room. pt on q-15 minute checks Meal Information Percent Meal Consumed - Breakfast: 90 Percent Meal Consumed - Lunch: 85 Percent Meal Consumed - Dinner: 40 Subjective Subjective Patient was seen & assessed and interval progress reviewed with nursing and social work. Staff report the patient continues to appear paranoid, and has r eported fearfulness that the man she believes was stalking her may "come through the cracks" - reportedly blocking cracks in doors and windows with blankets. Pt is scheduled to meet with student care and advocacy tomorrow afternoon to discuss her discharge options with regard to returning to school. Pt was seen today to assess progress since admission. She states she is "ok" today. She initially reports improvement in sleep last evening, but then shares with this provider that she awoke at 3am and could not return to sleep - she describes this as "better overall." Pt states that she feels her condition continues to "fluctuate, but in general it is better." Pt reports increased anxiety due to "uncertainties". When asked to share things that may seem unclear, she gives the example of "like what I should be eating. It's hard to decide." She states, "but I'm getting better with that." Pt states that her appetite has been fluctuating as well, but she is attempting to keep her intake "consistent." Pt requests clarification of exchange of information, asking if we would have records to a prior day program she attended if she desired to return there after discharge. This provider explained that we do not have access to records from any facility with her permission, but that we are also unable to make necessary referrals to desired facilities if permission to exchange information is not granted. Pt verbalized understanding of explanation. She states that she is still unsure about her decision to return to school, reporting "from a mental health standpoint I think I'm fine, so I guess we'll see." Pt was encouraged to be open to gathering all information, so she can make an informed decision that will allow her to return to school and be successful with her studies. Pt verbalized understanding of this. This provider attempted to discuss possible medication adjustments; however, patient declined - stating that her medications are working and she does not need any changes. Pt denied other needs or concerns presently. Physical Exam Psychiatric Orientation: alert, oriented to person and + guarded Apperance: + disheveled and appeared stated age; + inappropriately groomed Wearing same t-shirt and scrub pants for several days, hair is pulled back but disheveled. Eye Contact: + fair eye contact Motor Behavior: no abnormal motor movements (observed while sitting on mattress on floor in quiet room) Speech: normal rate/rhythm/volume of speech (soft tone) Affect: + flat affect (also appearing fatigued) Mood: + anxious mood ("I still get anxious, I think that's from being cooped up" and "uncertain"); no depressed mood Thought Process: goal directed thought process and + concrete thought process Thought Content: + paranoid (behavior suggests, though patient denies) Pt is not verbalizing any delusional thought content Suicidal Thoughts: denies suicidal thoughts Hallucinations: no auditory hallucinations and no visual hallucinations Cognition: attention grossly intact and language grossly intact Insight: + impaired insight Judgement: + impaired judgement Vital Signs (Past 24 Hours) Last Vital Signs Temp 36.9 C 05/21/19 06:57 Pulse 106 H 05/21/19 06:58 Resp 18 05/21/19 06:57 BP 121/84 05/21/19 06:58 Pulse Ox 96 05/14/19 19:38 Results & Data Current Inpatient Medications Current Inpatient Medications: Current Inpatient Medications Acetaminophen (Tylenol) 650 mg PO Q4H PRN PRN Reason: Headache or Minor Fever Stop: 06/13/19 16:48 Last Admin: 05/17/19 04:40 Dose: 650 mg Documented by: Al Hydrox/Mg Hydrox/Simethicone (Maalox) 30 ml PO Q4H PRN PRN Reason: GI Upset Stop: 06/13/19 16:48 Bacitracin (Bacitracin) 1 appln EXT PRN PRN; Protocol PRN Reason: wounds Stop: 06/14/19 08:08 Bismuth Subsalicylate (Kaopectate) 15 ml PO PRN PRN PRN Reason: Loose Stool Stop: 06/13/19 16:48 Collagenase (Santyl) 1 appln EXT UD PRN PRN Reason: wound dressings Stop: 06/14/19 08:06 Last Admin: 05/16/19 11:19 Dose: 1 appln Documented by: Haloperidol (Haldol) 5 mg PO Q4H PRN PRN Reason: agitation/psychosis Stop: 06/13/19 16:56 Last Admin: 05/21/19 11:16 Dose: 5 mg Documented by: Haloperidol Lactate (Haldol) 5 mg IM Q4H PRN PRN Reason: agitation/psychosis Stop: 06/13/19 16:56 Hydroxyzine HCl (Vistaril) 25 mg PO Q4H PRN PRN Reason: Anxiety Stop: 06/13/19 16:48 Hydroxyzine HCl (Vistaril) 50 mg PO HSZ PRN PRN Reason: Insomnia Stop: 06/13/19 16:48 Ibuprofen (Motrin) 600 mg PO Q6H PRN PRN Reason: Pain Stop: 06/14/19 07:56 Last Admin: 05/19/19 12:40 Dose: 600 mg Documented by: [place] Carbonate (Eskalith) 450 mg PO BID TASHA Stop: 06/13/19 20:59 Last Admin: 05/21/19 09:06 Dose: 450 mg Documented by: Lorazepam (Ativan) 1 mg PO Q4H PRN PRN Reason: Anxiety/Agitation Stop: 06/14/19 14:14 Last Admin: 05/17/19 17:51 Dose: 1 mg Documented by: Lorazepam (Ativan) 1 mg IM Q4H PRN PRN Reason: anxiety/agitation Stop: 06/14/19 14:15 Magnesium Hydroxide (Milk Of Magnesia) 30 ml PO DAILY PRN PRN Reason: Constipation Stop: 06/13/19 16:48 Propranolol HCl (Inderal) 20 mg PO BID TASHA Stop: 06/18/19 20:59 Last Admin: 05/21/19 09:07 Dose: 20 mg Documented by: Risperidone (Risperdal) 2 mg PO HS TASHA Stop: 06/16/19 21:59 Last Admin: 05/20/19 21:48 Dose: 2 mg Documented by: Risperidone (Risperdal) 1 mg PO QAM TASHA Stop: 06/17/19 08:59 Last Admin: 05/21/19 09:06 Dose: 1 mg Documented by: Sodium Chloride ([place] Nasal) 1 - 2 sprays NA PRN PRN PRN Reason: Nasal Dryness/Congestion Stop: 06/13/19 16:48 Venlafaxine HCl (Effexor Extended Release) 75 mg PO QAM TASHA Stop: 06/17/19 08:59 Last Admin: 05/21/19 09:06 Dose: 75 mg Documented by: Zolpidem Tartrate (Ambien) 10 mg PO HS PRN PRN Reason: Sleep Stop: 06/16/19 15:13 Mental Health & Subst Abuse Tx Treasury Consultant Name of Treasury Consultant: none Post Discharge Appointments Primary Care Physician Name Of Family Doctor: unknown CPT Code CPT Code 23387
[2019-05-21] MEDS: risperiDONE 2 MG TABLET PO SCH (21:16)
[2019-05-22] MEDS: LITHIUM CARBONATE 450 MG TABCR PO SCH ×2 (09:29→21:34)
[2019-05-22] MEDS: PROPRANOLOL HCL 20 MG TAB PO SCH ×2 (09:29→21:34)
[2019-05-22] MEDS: VENLAFAXINE HCL XR 75 MG CAPXR PO SCH (09:29)
[2019-05-22] MEDS: risperiDONE 1 MG TABLET PO SCH (09:29)
--- NOTE | 2019-05-22 15:02 | Psychiatric Progress Note ---
Date of Service May 22, 2019 Impression / Recommendations Impression Pt declined initial interaction with this provider, but was more agreeable in the afternoon. She continues to be paranoid and guarded, but pleasant with superficial conversation. She denies physical concerns. Pt is questioning the need for some medications, feeling risperidone is not necessary but agreeing to continue to take the medication. Pt reports she is "not having any psychotic symptoms", but continues to appear paranoid and at times seems to be responding to internal stimuli. While she is making improvements, she is not yet in a place where she is able to engaged in insightful or reality-based conversation. Pt is aware that it is recommended that she withdrawal from school for the remainder of the semester, but has been scheduled for a meeting with [employer] to discuss her options further. She continues to require inpatient psychiatric treatment, as her ongoing paranoia and lack of clear/coherent thought process put her at higher risk of harm to self or others if she is discharged prematurely. (1) Acute psychosis: 05/15 - Differential includes primary thought disorder, psychotic mood disorder, stress/trauma induced, or substance induced. - Gather collateral information as able from parents, OP providers, the university, and friends. At this time, she is unwilling to sign releases for anyone except her outpatient psychiatric clinic in her home town. - Increase quetiapine to 150 mg at bedtime, and continue to offer haloperidol 5 mg as needed for psychosis. - Fasting labs ordered for tomorrow for monitoring on an atypical antipsychotic. 05/16 -Complicating the clinical picture is that apparently both parents are accusing each other of being unreliable special machine operator's. (The patient's parents are .) In particular, the patient's father is insisting that the patient's mother is, herself, psychotic. -We will attempt to review records from her 2 previous psychiatric hospitalizations and from her outpatient provider.. We are currently in the process of obtaining these and scanning them into the record. -The patient acknowledges that she has a known diagnosis of bipolar disorder. Her current presentation seems more consistent with schizophrenia, given the degree of her delusional paranoia, the marked perceptual disturbances, her disorganized thinking, and her thought blocking. However, presumably we are seeing the depressed phase of her bipolar disorder. The patient does endorse feeling depressed. 05/17 -Patient is continuing to tell us that she would prefer that we not obtain records from her previous hospitalization. She is, however, willing to allow us to contact her outpatient psychiatrist. -Contact with the patient's parents, with the patient's permission, but was not particularly helpful. Reportedly, the patient's father wanted to focus almost exclusively on what he considers to be his his ex-'s mental illness, and the patient's mother tended to make negative comments regarding her ex- ; i.e. the patient's father. However, collateral information at this point is less important because the patient is now able to cooperate with providing a past psychiatric history. -The patient does have insight into her mental illness and recognizes that she is depressed. Today, she is not attempting to say that her current distress is not associated with depression, and she does not spontaneously voice any paranoid believes. She does, however, acknowledge that she is still feeling somewhat "unsettled" or "unsafe" currently, but notes that this has improved significantly. -She has received a number of doses of haloperidol as as needed medications in the past 24 hours, and this may be contributing to her improvement. -Quetiapine appears to be overly sedating, and we are reluctant to increase the dose further at this point because of the sedation. The patient is in agreement with the plan to discontinue Seroquel in favor of risperidone. We will begin risperidone 1 mg in the morning and 2 mg at bedtime for psychosis and mood stabilization. 05/18 -Watch for possible EPS. No dystonia today 05/19 -appearing less shuffling and more alert today. Still paranoid but a little more interactive. Continue Risperdal unchanged -remains tachycardic. We'll increase propranolol to 20 mg twice a day which may also help with anxiety and feelings of restlessness 05/20 - Pt remains paranoid in presentation, willing for superficial conversation - Tolerating titration of propranolol to 20mg BID 05/21 - Continue as above, consider need to further titration of risperidone, pt unwilling to discuss these changes today 05/22 - Pt agreeable to having higher dosage of risperidone available - 1mg dose of risperidone added at 1400 - anticipatient possible refusal of medication based on patient's perceived level of improvement - Continue remainder of treatment regimen as ordered (2) Bipolar 1 disorder: 05/15 - Get records from outpatient psychiatrist to clarify past diagnoses and treatment. - Continue lithium, check trough level tomorrow. Continue quetiapine and increase to 150mg HS as above. 05/16 -We will increase the patient's dose of quetiapine from 150 mg at bedtime to a dose of 50 mg in the morning and 150 mg at bedtime and continue to titrate as tolerated and required. -Currently, the patient says that she feels that her current medications "are the best," and does not wish to change medications. I would recommend that if she fails to respond to quetiapine after reasonable titration we consider risperidone or even haloperidol. -We will continue the cross titration of sertraline with venlafaxine. Today, we will continue venlafaxine 37.5 mg daily but increase the dose of sertraline to 100 mg daily. 05/17 -As noted above, quetiapine has been discontinued today because of the increased dose of quetiapine may be contributing to her excessive sedation, and this circumstance causes us to be reluctant to increase the dose further. In its place, we have begun risperidone 1 mg in the morning and 2 mg at bedtime and will continue and titrate as tolerated and indicated. -May consider further titration of propranolol but will defer for today secondary to concern for increasing fall risk until she appears more alert 05/19 -Consider reducing or discontinuing Effexor but will defer to primary team 05/20 - Continue current medication regimen, pt unwilling for other changes at this time 05/21 - Continue as above, patient verbalizes limited willingness for additional medication changes - She is demonstrating some improvement in her condition, though continues to appear paranoid on the unit (3) Pressure ulcer with abrasion, blister, partial thickness skin loss involving epidermis and/or dermis: 05/15 -appreciate hospitalist and wound care recommendations. She has extensive injuries, including pressure ulcers of bilateral elbows, abrasion of multiple sites of upper arms, legs, knees, abdomen, and breasts, and ulcerations on bilateral feet. See nursing and wound care notes for further information, but wounds will be clean, treated, and dressings changed daily as recommended. 05/16 -Wound care is proceeding as recommended by the hospitalist. See nursing and wound care notes for further information. Multiple healing abrasions are evident on the patient's upper extremities. 05/18 -Patient continues to require wound care. She denies increased pain or fever. 05/19 -lab order for BMP and CBC 05/20 - Continue treatment recommendation per wound care team - CBC showing slight improvement in RBC, hemoglobin, and hematocrit - BMP showing slightly low creatinine at 0.58 (4) Anemia: 05/15 -received IV iron on the hospitalist service, with improvement in hemoglobin. She can be followed up as an outpatient, with consideration for iron repletion in the future if needed. 05/17 -Seen and evaluated by the senior label specialist today. Dressings changed, and dressing schedule was simplified. Wounds debrided and appear to be healing. 05/19 -CBC tomorrow a.m. 05/20 - Slight improvements in RBC, hemoglobin, and hematocrit - though these values remain low Risk Factors Assessment Male: No : Yes Do You Have Access To A Gun?: No Health Problems: Yes Mental Health Diagnoses: Yes Substance Use Disorders: No Previous Attempt: No Hopelessness: No Protective Factors Assessment : No Responsible for Young Children: No Employed: No Stable Relationships: No Supportive Family: No Good Rapport with Provider: No Interval History Chief Complaint "Good, maybe a little worse I'd say." Review of Systems Notes Constitutional: reports occasional dizziness Cardiovascular: denied Respiratory: denied Gastrointestinal: denied Neurological: denied Integumentary/Musculoskeletal: reports skin/wounds are itchy, level of pain is improving Psychiatric: denies symptoms other than stated above Total of at least 10 systems reviewed, pertinent positives as above and in HPI. Sleep Information Total Hours of Sleep: 8 Sleep Comments: pt slept in the quiet room. pt on q-15 minute checks Meal Information Percent Meal Consumed - Breakfast: 100 Percent Meal Consumed - Lunch: 50 Percent Meal Consumed - Dinner: 0 Subjective Subjective Patient was seen & assessed and interval progress reviewed with treatment team. Staff report the patient continues to wax and wane in regard to display of paranoia. She continues to appear psychotic at times, though denies symptoms to staff. Pt has a meeting with [employer] this afternoon to discuss her options regarding recommendation she withdraw from school. Pt was seen today to assess progress since admission. Shes states that she had a good meeting with Cherie from [employer], and utilized the meeting to "just ask about my options moving forward." Pt states that she does not yet feel she is "where I need to be mentally to make decisions." When asked to elaborate on that thought, and discuss perceived deficits specifically, the patient is unable to do so. She states she is unable to pinpoint any specific concerns regarding confusion, disorientation, paranoia, or other symptoms suggestive of psychosis. Pt simply states, "I just don't feel like myself yet." Pt believes that her medications are working well, but is agreeable to having an afternoon dose of risperidone available. Pt has continued to spend a lot of her day in the safe room, but this has improved a bit today. She denies SI/HI, and perceived psychosis or paranoia. She denies acute needs or concerns at this time. Physical Exam Psychiatric Orientation: alert and cooperative Apperance: appropriately dressed, appropriately groomed (recently showered, hair cleaned and brushed) and appeared stated age Eye Contact: + fair eye contact Motor Behavior: steady gait and station (slow, cautious ambulation) and + psychomotor retardation Speech is slow and soft Affect: + flat affect (appearing fatigued) Mood: + depressed mood ("May a little worse" and "just don't feel like myself") Thought Process: goal directed thought process and + concrete thought process Thought Content: + paranoid (based on behavior demonstrated); no hopelessness Suicidal Thoughts: denies suicidal thoughts Homicidal Thoughts: denies homicidal thoughts Hallucinations: no auditory hallucinations and no visual hallucinations Cognition: attention grossly intact and language grossly intact Insight: + impaired insight Judgement: + impaired judgement Vital Signs (Past 24 Hours) Last Vital Signs Temp 36.7 C 05/22/19 06:45 Pulse 114 H 05/22/19 09:33 Resp 20 05/22/19 06:45 BP 117/79 05/22/19 09:33 Pulse Ox 96 05/14/19 19:38 Results & Data Current Inpatient Medications Current Inpatient Medications: Current Inpatient Medications Acetaminophen (Tylenol) 650 mg PO Q4H PRN PRN Reason: Headache or Minor Fever Stop: 06/13/19 16:48 Last Admin: 05/17/19 04:40 Dose: 650 mg Documented by: Al Hydrox/Mg Hydrox/Simethicone (Maalox) 30 ml PO Q4H PRN PRN Reason: GI Upset Stop: 06/13/19 16:48 Bacitracin (Bacitracin) 1 appln EXT PRN PRN; Protocol PRN Reason: wounds Stop: 06/14/19 08:08 Bismuth Subsalicylate (Kaopectate) 15 ml PO PRN PRN PRN Reason: Loose Stool Stop: 06/13/19 16:48 Collagenase (Santyl) 1 appln EXT UD PRN PRN Reason: wound dressings Stop: 06/14/19 08:06 Last Admin: 05/16/19 11:19 Dose: 1 appln Documented by: Haloperidol (Haldol) 5 mg PO Q4H PRN PRN Reason: agitation/psychosis Stop: 06/13/19 16:56 Last Admin: 05/21/19 11:16 Dose: 5 mg Documented by: Haloperidol Lactate (Haldol) 5 mg IM Q4H PRN PRN Reason: agitation/psychosis Stop: 06/13/19 16:56 Hydroxyzine HCl (Vistaril) 25 mg PO Q4H PRN PRN Reason: Anxiety Stop: 06/13/19 16:48 Hydroxyzine HCl (Vistaril) 50 mg PO HSZ PRN PRN Reason: Insomnia Stop: 06/13/19 16:48 Ibuprofen (Motrin) 600 mg PO Q6H PRN PRN Reason: Pain Stop: 06/14/19 07:56 Last Admin: 05/19/19 12:40 Dose: 600 mg Documented by: [place] Carbonate (Eskalith) 450 mg PO BID [facility] Stop: 06/13/19 20:59 Last Admin: 05/22/19 09:29 Dose: 450 mg Documented by: Lorazepam (Ativan) 1 mg PO Q4H PRN PRN Reason: Anxiety/Agitation Stop: 06/14/19 14:14 Last Admin: 05/17/19 17:51 Dose: 1 mg Documented by: Lorazepam (Ativan) 1 mg IM Q4H PRN PRN Reason: anxiety/agitation Stop: 06/14/19 14:15 Magnesium Hydroxide (Milk Of Magnesia) 30 ml PO DAILY PRN PRN Reason: Constipation Stop: 06/13/19 16:48 Propranolol HCl (Inderal) 20 mg PO BID TASHA Stop: 06/18/19 20:59 Last Admin: 05/22/19 09:29 Dose: 20 mg Documented by: Risperidone (Risperdal) 2 mg PO HS TASHA Stop: 06/16/19 21:59 Last Admin: 05/21/19 21:16 Dose: 2 mg Documented by: Risperidone (Risperdal) 1 mg PO QAM TASHA Stop: 06/17/19 08:59 Last Admin: 05/22/19 09:29 Dose: 1 mg Documented by: Sodium Chloride ([place] Nasal) 1 - 2 sprays NA PRN PRN PRN Reason: Nasal Dryness/Congestion Stop: 06/13/19 16:48 Venlafaxine HCl (Effexor Extended Release) 75 mg PO QAM TASHA Stop: 06/17/19 08:59 Last Admin: 05/22/19 09:29 Dose: 75 mg Documented by: Zolpidem Tartrate (Ambien) 10 mg PO HS PRN PRN Reason: Sleep Stop: 06/16/19 15:13 Mental Health & Subst Abuse Tx Catheter Builder Name of Catheter Builder: none Post Discharge Appointments Primary Care Physician Name Of Family Doctor: unknown CPT Code CPT Code 39549
[2019-05-22] MEDS: risperiDONE 2 MG TABLET PO SCH (21:35)
[2019-05-23] MEDS: LITHIUM CARBONATE 450 MG TABCR PO SCH ×2 (08:47→21:19)
[2019-05-23] MEDS: VENLAFAXINE HCL XR 75 MG CAPXR PO SCH (08:47)
[2019-05-23] MEDS: risperiDONE 1 MG TABLET PO SCH ×2 (08:47→14:23)
[2019-05-23] MEDS: PROPRANOLOL HCL 20 MG TAB PO SCH ×2 (08:47→21:19)
--- NOTE | 2019-05-23 12:49 | Psychiatric Progress Note ---
Date of Service May 23, 2019 Impression / Recommendations Impression Pt declined initial interaction with this provider, but was more agreeable in the afternoon. She continues to be paranoid and guarded, but pleasant with superficial conversation. She denies physical concerns. Pt is questioning the need for some medications, feeling risperidone is not necessary but agreeing to continue to take the medication. Pt reports she is "not having any psychotic symptoms", but continues to appear paranoid and at times seems to be responding to internal stimuli. While she is making improvements, she is not yet in a place where she is able to engaged in insightful or reality-based conversation. Pt is aware that it is recommended that she withdrawal from school for the remainder of the semester, but has been scheduled for a meeting with Student Care and Advocacy to discuss her options further. She continues to require inpatient psychiatric treatment, as her ongoing paranoia and lack of clear/coherent thought process put her at higher risk of harm to self or others if she is discharged prematurely. (1) Acute psychosis: 05/15 - Differential includes primary thought disorder, psychotic mood disorder, stress/trauma induced, or substance induced. - Gather collateral information as able from parents, OP providers, the university, and friends. At this time, she is unwilling to sign releases for anyone except her outpatient psychiatric clinic in her home town. - Increase quetiapine to 150 mg at bedtime, and continue to offer haloperidol 5 mg as needed for psychosis. - Fasting labs ordered for tomorrow for monitoring on an atypical antipsychotic. 05/16 -Complicating the clinical picture is that apparently both parents are accusing each other of being unreliable assault amphibious vehicle officer's. (The patient's parents are .) In particular, the patient's father is insisting that the patient's mother is, herself, psychotic. -We will attempt to review records from her 2 previous psychiatric hospitalizations and from her outpatient provider.. We are currently in the process of obtaining these and scanning them into the record. -The patient acknowledges that she has a known diagnosis of bipolar disorder. Her current presentation seems more consistent with schizophrenia, given the degree of her delusional paranoia, the marked perceptual disturbances, her disorganized thinking, and her thought blocking. However, presumably we are seeing the depressed phase of her bipolar disorder. The patient does endorse feeling depressed. 05/17 -Patient is continuing to tell us that she would prefer that we not obtain records from her previous hospitalization. She is, however, willing to allow us to contact her outpatient psychiatrist. -Contact with the patient's parents, with the patient's permission, but was not particularly helpful. Reportedly, the patient's father wanted to focus almost exclusively on what he considers to be his his ex-'s mental illness, and the patient's mother tended to make negative comments regarding her ex- ; i.e. the patient's father. However, collateral information at this point is less important because the patient is now able to cooperate with providing a past psychiatric history. -The patient does have insight into her mental illness and recognizes that she is depressed. Today, she is not attempting to say that her current distress is not associated with depression, and she does not spontaneously voice any paranoid believes. She does, however, acknowledge that she is still feeling somewhat "unsettled" or "unsafe" currently, but notes that this has improved significantly. -She has received a number of doses of haloperidol as as needed medications in the past 24 hours, and this may be contributing to her improvement. -Quetiapine appears to be overly sedating, and we are reluctant to increase the dose further at this point because of the sedation. The patient is in agreement with the plan to discontinue Seroquel in favor of risperidone. We will begin risperidone 1 mg in the morning and 2 mg at bedtime for psychosis and mood stabilization. 05/18 -Watch for possible EPS. No dystonia today 05/19 -appearing less shuffling and more alert today. Still paranoid but a little more interactive. Continue Risperdal unchanged -remains tachycardic. We'll increase propranolol to 20 mg twice a day which may also help with anxiety and feelings of restlessness 05/20 - Pt remains paranoid in presentation, willing for superficial conversation - Tolerating titration of propranolol to 20mg BID 05/21 - Continue as above, consider need to further titration of risperidone, pt unwilling to discuss these changes today 05/22 - Pt agreeable to having higher dosage of risperidone available - 1mg dose of risperidone added at 1400 - anticipate possible refusal of medication based on patient's perceived level of improvement - Continue remainder of treatment regimen as ordered 05/23 - Continue current treatment regimen - Continue to assist patient with aftercare and discharge planning as agreeable (2) Bipolar 1 disorder: 05/15 - Get records from outpatient psychiatrist to clarify past diagnoses and treatment. - Continue lithium, check trough level tomorrow. Continue quetiapine and increase to 150mg HS as above. 05/16 -We will increase the patient's dose of quetiapine from 150 mg at bedtime to a dose of 50 mg in the morning and 150 mg at bedtime and continue to titrate as tolerated and required. -Currently, the patient says that she feels that her current medications "are the best," and does not wish to change medications. I would recommend that if she fails to respond to quetiapine after reasonable titration we consider risperidone or even haloperidol. -We will continue the cross titration of sertraline with venlafaxine. Today, we will continue venlafaxine 37.5 mg daily but increase the dose of sertraline to 100 mg daily. 05/17 -As noted above, quetiapine has been discontinued today because of the increased dose of quetiapine may be contributing to her excessive sedation, and this circumstance causes us to be reluctant to increase the dose further. In its place, we have begun risperidone 1 mg in the morning and 2 mg at bedtime and will continue and titrate as tolerated and indicated. -May consider further titration of propranolol but will defer for today secondary to concern for increasing fall risk until she appears more alert 05/19 -Consider reducing or discontinuing Effexor but will defer to primary team 05/20 - Continue current medication regimen, pt unwilling for other changes at this time 05/21 - Continue as above, patient verbalizes limited willingness for additional medication changes - She is demonstrating some improvement in her condition, though continues to appear paranoid on the unit 05/23 - Continue as above (3) Pressure ulcer with abrasion, blister, partial thickness skin loss involving epidermis and/or dermis: 05/15 -appreciate hospitalist and wound care recommendations. She has extensive injuries, including pressure ulcers of bilateral elbows, abrasion of multiple sites of upper arms, legs, knees, abdomen, and breasts, and ulcerations on bilateral feet. See nursing and wound care notes for further information, but wounds will be clean, treated, and dressings changed daily as recommended. 05/16 -Wound care is proceeding as recommended by the hospitalist. See nursing and wound care notes for further information. Multiple healing abrasions are evident on the patient's upper extremities. 05/18 -Patient continues to require wound care. She denies increased pain or fever. 05/19 -lab order for BMP and CBC 05/20 - Continue treatment recommendation per wound care team - CBC showing slight improvement in RBC, hemoglobin, and hematocrit - BMP showing slightly low creatinine at 0.58 (4) Anemia: 05/15 -received IV iron on the hospitalist service, with improvement in hemoglobin. She can be followed up as an outpatient, with consideration for iron repletion in the future if needed. 05/17 -Seen and evaluated by the environmental communications specialist today. Dressings changed, and dressing schedule was simplified. Wounds debrided and appear to be healing. 05/19 -CBC tomorrow a.m. 05/20 - Slight improvements in RBC, hemoglobin, and hematocrit - though these values remain low Risk Factors Assessment Male: No : Yes Do You Have Access To A Gun?: No Health Problems: Yes Mental Health Diagnoses: Yes Substance Use Disorders: No Previous Attempt: No Hopelessness: No Protective Factors Assessment : No Responsible for Young Children: No Employed: No Stable Relationships: No Supportive Family: No Good Rapport with Provider: No Interval History Identifying Information ALISHA SARMIENTO is a 19-year-old F 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 Chief Complaint "Um. I'm doing fine. Just a little tired." Review of Systems Notes Constitutional: reports improved sleep last evening Cardiovascular: denied Respiratory: denied Gastrointestinal: denied Neurological: denied Psychiatric: denies symptoms other than stated above Total of at least 10 systems reviewed, pertinent positives as above and in HPI. Sleep Information Total Hours of Sleep: 5.5 Sleep Comments: pt slept in the quiet room. pt on q-15 minute checks Meal Information Percent Meal Consumed - Breakfast: 45 Percent Meal Consumed - Lunch: 50 Percent Meal Consumed - Dinner: 70 Subjective Subjective Patient was seen & assessed and interval progress reviewed with nursing and soci al work. Staff reports the patient continues to appear hesitant and mildly paranoid, as she continues to sleep in the safe room. Pt did pull her thoughts together to successfully participate in a meeting with student care and advocacy yesterday, but her level of insight is still perceived to be poor. Pt will be encouraged today to utilize her own room, rather than the safe room. Pt was seen today to assess progress since admission. Pt states that she is "ok", but admits she is somewhat tired today. She states that she had a good visit with her mother, who came to the unit to eat lunch with the patient. The patient admits that she feels things are improving, but remains unable to give concrete examples of this progress. Pt denies any acute concerns at this time, and remains hesitant to engage in anything beyond superficial conversation. Pt denies acute needs at this time, and states she is planning to take a brief nap. Physical Exam Psychiatric Orientation: alert, oriented x 3 and cooperative (superficially, but with mild suspicion/hesitation) Apperance: appropriately dressed (in sweatshirt and scrub pants), + disheveled and appeared stated age Eye Contact: + fair eye contact (eyes continue to seem heavy, closing them at times during conversation) Motor Behavior: steady gait and station (slow, cautious ambulation) and no abnormal motor movements Speech: normal rate/rhythm/volume of speech (soft tone) Affect: + flat affect Thought Process: goal directed thought process and + concrete thought process Thought Content: + paranoid (behavior suggests paranoid and delusional thinking, though improving); no hopelessness Suicidal Thoughts: denies suicidal thoughts Hallucinations: no auditory hallucinations and no visual hallucinations Cognition: attention grossly intact and language grossly intact Insight: + impaired insight (showing some mild improvements recently) Judgement: + impaired judgement (showing some mild improvements recently) Vital Signs (Past 24 Hours) Last Vital Signs Temp 36.3 C L 05/23/19 06:56 Pulse 111 H 05/23/19 06:57 Resp 18 05/23/19 06:56 BP 106/72 05/23/19 06:57 Pulse Ox 96 05/14/19 19:38 Results & Data Current Inpatient Medications Current Inpatient Medications: Current Inpatient Medications Acetaminophen (Tylenol) 650 mg PO Q4H PRN PRN Reason: Headache or Minor Fever Stop: 06/13/19 16:48 Last Admin: 05/17/19 04:40 Dose: 650 mg Documented by: Al Hydrox/Mg Hydrox/Simethicone (Maalox) 30 ml PO Q4H PRN PRN Reason: GI Upset Stop: 06/13/19 16:48 Bacitracin (Bacitracin) 1 appln EXT PRN PRN; Protocol PRN Reason: wounds Stop: 06/14/19 08:08 Bismuth Subsalicylate (Kaopectate) 15 ml PO PRN PRN PRN Reason: Loose Stool Stop: 06/13/19 16:48 Collagenase (Santyl) 1 appln EXT UD PRN PRN Reason: wound dressings Stop: 06/14/19 08:06 Last Admin: 05/16/19 11:19 Dose: 1 appln Documented by: Haloperidol (Haldol) 5 mg PO Q4H PRN PRN Reason: agitation/psychosis Stop: 06/13/19 16:56 Last Admin: 05/21/19 11:16 Dose: 5 mg Documented by: Haloperidol Lactate (Haldol) 5 mg IM Q4H PRN PRN Reason: agitation/psychosis Stop: 06/13/19 16:56 Hydroxyzine HCl (Vistaril) 25 mg PO Q4H PRN PRN Reason: Anxiety Stop: 06/13/19 16:48 Hydroxyzine HCl (Vistaril) 50 mg PO HSZ PRN PRN Reason: Insomnia Stop: 06/13/19 16:48 Last Admin: 05/23/19 02:19 Dose: 50 mg Documented by: Ibuprofen (Motrin) 600 mg PO Q6H PRN PRN Reason: Pain Stop: 06/14/19 07:56 Last Admin: 05/19/19 12:40 Dose: 600 mg Documented by: [place] Carbonate (Eskalith) 450 mg PO BID TASHA Stop: 06/13/19 20:59 Last Admin: 05/23/19 08:47 Dose: 450 mg Documented by: Lorazepam (Ativan) 1 mg PO Q4H PRN PRN Reason: Anxiety/Agitation Stop: 06/14/19 14:14 Last Admin: 05/17/19 17:51 Dose: 1 mg Documented by: Lorazepam (Ativan) 1 mg IM Q4H PRN PRN Reason: anxiety/agitation Stop: 06/14/19 14:15 Magnesium Hydroxide (Milk Of Magnesia) 30 ml PO DAILY PRN PRN Reason: Constipation Stop: 06/13/19 16:48 Propranolol HCl (Inderal) 20 mg PO BID TASHA Stop: 06/18/19 20:59 Last Admin: 05/23/19 08:47 Dose: 20 mg Documented by: Risperidone (Risperdal) 2 mg PO HS TASHA Stop: 06/16/19 21:59 Last Admin: 05/22/19 21:35 Dose: 2 mg Documented by: Risperidone (Risperdal) 1 mg PO QAM TASHA Stop: 06/17/19 08:59 Last Admin: 05/23/19 08:47 Dose: 1 mg Documented by: Risperidone (Risperdal) 1 mg PO 1400 TASHA Stop: 06/22/19 13:59 Sodium Chloride (Fannin Nasal) 1 - 2 sprays NA PRN PRN PRN Reason: Nasal Dryness/Congestion Stop: 06/13/19 16:48 Venlafaxine HCl (Effexor Extended Release) 75 mg PO QAM TASHA Stop: 06/17/19 08:59 Last Admin: 05/23/19 08:47 Dose: 75 mg Documented by: Zolpidem Tartrate (Ambien) 10 mg PO HS PRN PRN Reason: Sleep Stop: 06/16/19 15:13 Mental Health & Subst Abuse Tx Director Trial Name of Director Trial: none Post Discharge Appointments Primary Care Physician Name Of Family Doctor: unknown CPT Code CPT Code 58094
[2019-05-23] MEDS: risperiDONE 2 MG TABLET PO SCH (21:19)
[2019-05-24] MEDS: VENLAFAXINE HCL XR 75 MG CAPXR PO SCH (08:59)
[2019-05-24] MEDS: risperiDONE 1 MG TABLET PO SCH ×3 (08:59→21:59)
[2019-05-24] MEDS: LITHIUM CARBONATE 450 MG TABCR PO SCH ×2 (08:59→21:58)
[2019-05-24] MEDS: PROPRANOLOL HCL 20 MG TAB PO SCH ×2 (08:59→21:59)
[2019-05-24] MEDS: IBUPROFEN 600 MG TAB PO PRN (12:21)
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
[2019-05-25] MEDS: VENLAFAXINE HCL XR 75 MG CAPXR PO SCH (08:45)
[2019-05-25] MEDS: risperiDONE 0.5 MG TABLET PO SCH (08:46)
[2019-05-25] MEDS: LITHIUM CARBONATE 450 MG TABCR PO SCH ×2 (08:46→21:23)
[2019-05-25] MEDS: PROPRANOLOL HCL 20 MG TAB PO SCH ×2 (08:46→21:23)
--- NOTE | 2019-05-25 12:13 | Psychiatric Progress Note ---
Date of Service May 25, 2019 Impression / Recommendations Impression The patient has shown fairly steady improvement on Risperdal, lithium and venlafaxine. Her most recent lithium level, on 05/16/2019, was 0.8 and she is showing no signs of lithium toxicity. Cooperative with wound care. (1) Acute psychosis: 05/15 - Differential includes primary thought disorder, psychotic mood disorder, stress/trauma induced, or substance induced. - Gather collateral information as able from parents, OP providers, the university, and friends. At this time, she is unwilling to sign releases for anyone except her outpatient psychiatric clinic in her home town. - Increase quetiapine to 150 mg at bedtime, and continue to offer haloperidol 5 mg as needed for psychosis. - Fasting labs ordered for tomorrow for monitoring on an atypical antipsychotic. 05/16 -Complicating the clinical picture is that apparently both parents are accusing each other of being unreliable motor equipment sergeant's. (The patient's parents are .) In particular, the patient's father is insisting that the patient's mother is, herself, psychotic. -We will attempt to review records from her 2 previous psychiatric hospitalizations and from her outpatient provider.. We are currently in the process of obtaining these and scanning them into the record. -The patient acknowledges that she has a known diagnosis of bipolar disorder. Her current presentation seems more consistent with schizophrenia, given the degree of her delusional paranoia, the marked perceptual disturbances, her disorganized thinking, and her thought blocking. However, presumably we are seeing the depressed phase of her bipolar disorder. The patient does endorse feeling depressed. 05/17 -Patient is continuing to tell us that she would prefer that we not obtain records from her previous hospitalization. She is, however, willing to allow us to contact her outpatient psychiatrist. -Contact with the patient's parents, with the patient's permission, but was not particularly helpful. Reportedly, the patient's father wanted to focus almost exclusively on what he considers to be his his ex-'s mental illness, and the patient's mother tended to make negative comments regarding her ex- ; i.e. the patient's father. However, collateral information at this point is less important because the patient is now able to cooperate with providing a past psychiatric history. -The patient does have insight into her mental illness and recognizes that she is depressed. Today, she is not attempting to say that her current distress is not associated with depression, and she does not spontaneously voice any paranoid believes. She does, however, acknowledge that she is still feeling somewhat "unsettled" or "unsafe" currently, but notes that this has improved significantly. -She has received a number of doses of haloperidol as as needed medications in the past 24 hours, and this may be contributing to her improvement. -Quetiapine appears to be overly sedating, and we are reluctant to increase the dose further at this point because of the sedation. The patient is in agreement with the plan to discontinue Seroquel in favor of risperidone. We will begin risperidone 1 mg in the morning and 2 mg at bedtime for psychosis and mood stabilization. 05/18 -Watch for possible EPS. No dystonia today 05/19 -appearing less shuffling and more alert today. Still paranoid but a little more interactive. Continue Risperdal unchanged -remains tachycardic. We'll increase propranolol to 20 mg twice a day which may also help with anxiety and feelings of restlessness 05/20 - Pt remains paranoid in presentation, willing for superficial conversation - Tolerating titration of propranolol to 20mg BID 05/21 - Continue as above, consider need to further titration of risperidone, pt unwilling to discuss these changes today 05/22 - Pt agreeable to having higher dosage of risperidone available - 1mg dose of risperidone added at 1400 - anticipate possible refusal of medication based on patient's perceived level of improvement - Continue remainder of treatment regimen as ordered 05/23 - Continue current treatment regimen - Continue to assist patient with aftercare and discharge planning as agreeable 05/24 -The patient does not currently present with any psychotic symptoms. However, she does demonstrate some excess sedation during the day, and we have discussed adjusting her medication schedule accordingly. -We will discontinue risperidone 1 mg twice a day and 2 mg at bedtime in favor of 0.5 mg in the morning and 3 mg at bedtime. (2) Bipolar 1 disorder: 05/15 - Get records from outpatient psychiatrist to clarify past diagnoses and treatment. - Continue lithium, check trough level tomorrow. Continue quetiapine and increase to 150mg HS as above. 05/16 -We will increase the patient's dose of quetiapine from 150 mg at bedtime to a dose of 50 mg in the morning and 150 mg at bedtime and continue to titrate as tolerated and required. -Currently, the patient says that she feels that her current medications "are the best," and does not wish to change medications. I would recommend that if she fails to respond to quetiapine after reasonable titration we consider risperidone or even haloperidol. -We will continue the cross titration of sertraline with venlafaxine. Today, we will continue venlafaxine 37.5 mg daily but increase the dose of sertraline to 100 mg daily. 05/17 -As noted above, quetiapine has been discontinued today because of the increased dose of quetiapine may be contributing to her excessive sedation, and this circumstance causes us to be reluctant to increase the dose further. In its place, we have begun risperidone 1 mg in the morning and 2 mg at bedtime and will continue and titrate as tolerated and indicated. -May consider further titration of propranolol but will defer for today secondary to concern for increasing fall risk until she appears more alert 05/19 -Consider reducing or discontinuing Effexor but will defer to primary team 05/20 - Continue current medication regimen, pt unwilling for other changes at this time 05/21 - Continue as above, patient verbalizes limited willingness for additional medication changes - She is demonstrating some improvement in her condition, though continues to appear paranoid on the unit 05/23 - Continue as above 05/24 -The patient's most recent lithium level was measured on 05/16/2019. At that time, her level was 0.8. We will repeat her lithium level in the morning and adjust her lithium dosage as indicated. -Continue lithium carbonate 450 mg twice a day. As above, we will adjust her dose schedule of risperidone to address daytime sedation. (3) Pressure ulcer with abrasion, blister, partial thickness skin loss involving epidermis and/or dermis: 05/15 -appreciate hospitalist and wound care recommendations. She has extensive injuries, including pressure ulcers of bilateral elbows, abrasion of multiple sites of upper arms, legs, knees, abdomen, and breasts, and ulcerations on bilateral feet. See nursing and wound care notes for further information, but wounds will be clean, treated, and dressings changed daily as recommended. 05/16 -Wound care is proceeding as recommended by the hospitalist. See nursing and wound care notes for further information. Multiple healing abrasions are evident on the patient's upper extremities. 05/18 -Patient continues to require wound care. She denies increased pain or fever. 05/19 -lab order for BMP and CBC 05/20 - Continue treatment recommendation per wound care team - CBC showing slight improvement in RBC, hemoglobin, and hematocrit - BMP showing slightly low creatinine at 0.58 05/24 -Continue treatment recommendations per wound care team. -Some wounds continue to drain, but all appear to be healing. (4) Anemia: 05/15 -received IV iron on the hospitalist service, with improvement in hemoglobin. She can be followed up as an outpatient, with consideration for iron repletion in the future if needed. 05/17 -Seen and evaluated by the salon customer experience specialist today. Dressings changed, and dressing schedule was simplified. Wounds debrided and appear to be healing. 05/19 -CBC tomorrow a.m. 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 Chief Complaint "I'm pretty sure I'm going to withdraw". Review of Systems Sleep Information Total Hours of Sleep: 6.5 Sleep Comments: pt slept in the quiet room. pt on q-15 minute checks Meal Information Percent Meal Consumed - Breakfast: 70 Percent Meal Consumed - Lunch: 75 Percent Meal Consumed - Dinner: 85 Subjective Subjective Patient was seen & assessed and interval progress reviewed with nursing and social work. Patient still unsure the circumstances of time in [facility] and attributes the lapse in memory to PTSD related amnesia rather than psychosis. Thoughts are more organized on Risperdal, currently some dose shifting occurred toward hs due to afternoon sedation. Only taking effect today so she is unsure at this time. She is communicating with family and social work will explore options for day treatment as she allows as she has been paranoid around ROIs, etc. Unclear how much of limits in social interactions due to blocking, affective blunting vs lizzeth paranoia. Physical Exam Mental Examination The patient presented as alert and cooperative. The patient was casually dressed and groomed. Eye contact was fair. No psychomotor restlessness or agitation was noted. Speech was nonspontaneous. Affect was mood congruent. The patients mood appeared calm. Thought processes were without evidence of loose associations or flight of ideas but mild blocking. Thought content/perception was superficially reality based. The patient denied suicidal and homicidal ideation. The patient denied hallucinations and did not appear to be responding to internal stimuli. Cognition was grossly intact with orientation to person, place and time. Fund of Knowledge/Intelligence were cons istent with level of education. Insight and Judgement were limited. Vital Signs (Past 24 Hours) Last Vital Signs Temp 36.7 C 05/25/19 06:00 Pulse 108 H 05/25/19 06:54 Resp 16 05/25/19 06:00 BP 110/67 05/25/19 06:54 Pulse Ox 96 05/14/19 19:38 Results & Data Current Inpatient Medications Current Inpatient Medications: Current Inpatient Medications Acetaminophen (Tylenol) 650 mg PO Q4H PRN PRN Reason: Headache or Minor Fever Stop: 06/13/19 16:48 Last Admin: 05/17/19 04:40 Dose: 650 mg Documented by: Al Hydrox/Mg Hydrox/Simethicone (Maalox) 30 ml PO Q4H PRN PRN Reason: GI Upset Stop: 06/13/19 16:48 Bacitracin (Bacitracin) 1 appln EXT PRN PRN; Protocol PRN Reason: wounds Stop: 06/14/19 08:08 Bismuth Subsalicylate (Kaopectate) 15 ml PO PRN PRN PRN Reason: Loose Stool Stop: 06/13/19 16:48 Collagenase (Santyl) 1 appln EXT UD PRN PRN Reason: wound dressings Stop: 06/14/19 08:06 Last Admin: 05/16/19 11:19 Dose: 1 appln Documented by: Haloperidol (Haldol) 5 mg PO Q4H PRN PRN Reason: agitation/psychosis Stop: 06/13/19 16:56 Last Admin: 05/21/19 11:16 Dose: 5 mg Documented by: Haloperidol Lactate (Haldol) 5 mg IM Q4H PRN PRN Reason: agitation/psychosis Stop: 06/13/19 16:56 Hydroxyzine HCl (Vistaril) 25 mg PO Q4H PRN PRN Reason: Anxiety Stop: 06/13/19 16:48 Hydroxyzine HCl (Vistaril) 50 mg PO HSZ PRN PRN Reason: Insomnia Stop: 06/13/19 16:48 Last Admin: 05/24/19 01:44 Dose: 50 mg Documented by: Ibuprofen (Motrin) 600 mg PO Q6H PRN PRN Reason: Pain Stop: 06/14/19 07:56 Last Admin: 05/24/19 12:21 Dose: 600 mg Documented by: [place] Carbonate (Eskalith) 450 mg PO BID [facility] Stop: 06/13/19 20:59 Last Admin: 05/25/19 08:46 Dose: 450 mg Documented by: Lorazepam (Ativan) 1 mg PO Q4H PRN PRN Reason: Anxiety/Agitation Stop: 06/14/19 14:14 Last Admin: 05/17/19 17:51 Dose: 1 mg Documented by: Lorazepam (Ativan) 1 mg IM Q4H PRN PRN Reason: anxiety/agitation Stop: 06/14/19 14:15 Magnesium Hydroxide (Milk Of Magnesia) 30 ml PO DAILY PRN PRN Reason: Constipation Stop: 06/13/19 16:48 Propranolol HCl (Inderal) 20 mg PO BID [facility] Stop: 06/18/19 20:59 Last Admin: 05/25/19 08:46 Dose: 20 mg Documented by: Risperidone (Risperdal) 0.5 mg PO QAM [facility] Stop: 06/24/19 08:59 Last Admin: 05/25/19 08:46 Dose: 0.5 mg Documented by: Risperidone (Risperdal) 3 mg PO HS [facility] Stop: 06/23/19 21:59 Last Admin: 05/24/19 21:59 Dose: 3 mg Documented by: Sodium Chloride ([place]esta Nasal) 1 - 2 sprays NA PRN PRN PRN Reason: Nasal Dryness/Congestion Stop: 06/13/19 16:48 Venlafaxine HCl (Effexor Extended Release) 75 mg PO QAM [facility] Stop: 06/17/19 08:59 Last Admin: 05/25/19 08:45 Dose: 75 mg Documented by: Zolpidem Tartrate (Ambien) 10 mg PO HS PRN PRN Reason: Sleep Stop: 06/16/19 15:13 Mental Health & Subst Abuse Tx Film Crew Member Name of Film Crew Member: none Post Discharge Appointments Primary Care Physician Name Of Family Doctor: unknown Partial or Psych Rehab Name of Partial or Psych Rehab: Andrew DAL[facility] - [facility] in Intake hours Phone Number of Partial or Psych Rehab: [phone] Date of Appointment at Partial or Psych Rehab: 06/03/19 Time of Appointment at Partial or Psych Rehab: 8:30 a.m. Partial or Psych Rehab Appointment Comment: [place] [id number] Contact Information Discharge Discharge Address: [address] [place] [id number] CPT Code CPT Code 29191
[2019-05-25] MEDS: risperiDONE 1 MG TABLET PO SCH (21:24)
[2019-05-26] MEDS: LITHIUM CARBONATE 450 MG TABCR PO SCH ×2 (08:43→21:27)
[2019-05-26] MEDS: VENLAFAXINE HCL XR 75 MG CAPXR PO SCH (08:43)
[2019-05-26] MEDS: PROPRANOLOL HCL 20 MG TAB PO SCH ×2 (08:43→21:28)
[2019-05-26] MEDS: risperiDONE 0.5 MG TABLET PO SCH (08:44)
[2019-05-26] MEDS ORDERED: BENZTROPINE MESYLATE 0.5 MG TAB PO PRN (09:11)
--- NOTE | 2019-05-26 11:30 | Psychiatric Progress Note ---
Date of Service May 26, 2019 Impression / Recommendations Impression The patient has shown fairly steady improvement on Risperdal, lithium and venlafaxine. Her most recent lithium level, on 05/16/2019, was 0.8 and she is showing no signs of lithium toxicity. Cooperative with wound care. Accepting of withdrawal from university. (1) Acute psychosis: 05/15 - Differential includes primary thought disorder, psychotic mood disorder, stress/trauma induced, or substance induced. - Gather collateral information as able from parents, OP providers, the university, and friends. At this time, she is unwilling to sign releases for anyone except her outpatient psychiatric clinic in her home town. - Increase quetiapine to 150 mg at bedtime, and continue to offer haloperidol 5 mg as needed for psychosis. - Fasting labs ordered for tomorrow for monitoring on an atypical antipsychotic. 05/16 -Complicating the clinical picture is that apparently both parents are accusing each other of being unreliable reporter anchor's. (The patient's parents are .) In particular, the patient's father is insisting that the patient's mother is, herself, psychotic. -We will attempt to review records from her 2 previous psychiatric hospitalizations and from her outpatient provider.. We are currently in the process of obtaining these and scanning them into the record. -The patient acknowledges that she has a known diagnosis of bipolar disorder. Her current presentation seems more consistent with schizophrenia, given the degree of her delusional paranoia, the marked perceptual disturbances, her disorganized thinking, and her thought blocking. However, presumably we are seeing the depressed phase of her bipolar disorder. The patient does endorse feeling depressed. 05/17 -Patient is continuing to tell us that she would prefer that we not obtain records from her previous hospitalization. She is, however, willing to allow us to contact her outpatient psychiatrist. -Contact with the patient's parents, with the patient's permission, but was not particularly helpful. Reportedly, the patient's father wanted to focus almost exclusively on what he considers to be his his ex-'s mental illness, and the patient's mother tended to make negative comments regarding her ex- ; i.e. the patient's father. However, collateral information at this point is less important because the patient is now able to cooperate with providing a past psychiatric history. -The patient does have insight into her mental illness and recognizes that she is depressed. Today, she is not attempting to say that her current distress is not associated with depression, and she does not spontaneously voice any paranoid believes. She does, however, acknowledge that she is still feeling somewhat "unsettled" or "unsafe" currently, but notes that this has improved significantly. -She has received a number of doses of haloperidol as as needed medications in the past 24 hours, and this may be contributing to her improvement. -Quetiapine appears to be overly sedating, and we are reluctant to increase the dose further at this point because of the sedation. The patient is in agreement with the plan to discontinue Seroquel in favor of risperidone. We will begin risperidone 1 mg in the morning and 2 mg at bedtime for psychosis and mood stabilization. 05/18 -Watch for possible EPS. No dystonia today 05/19 -appearing less shuffling and more alert today. Still paranoid but a little more interactive. Continue Risperdal unchanged -remains tachycardic. We'll increase propranolol to 20 mg twice a day which may also help with anxiety and feelings of restlessness 05/20 - Pt remains paranoid in presentation, willing for superficial conversation - Tolerating titration of propranolol to 20mg BID 05/21 - Continue as above, consider need to further titration of risperidone, pt unwilling to discuss these changes today 05/22 - Pt agreeable to having higher dosage of risperidone available - 1mg dose of risperidone added at 1400 - anticipate possible refusal of medication based on patient's perceived level of improvement - Continue remainder of treatment regimen as ordered 05/23 - Continue current treatment regimen - Continue to assist patient with aftercare and discharge planning as agreeable 05/24 -The patient does not currently present with any psychotic symptoms. However, she does demonstrate some excess sedation during the day, and we have discussed adjusting her medication schedule accordingly. -We will discontinue risperidone 1 mg twice a day and 2 mg at bedtime in favor of 0.5 mg in the morning and 3 mg at bedtime. (2) Bipolar 1 disorder: 05/15 - Get records from outpatient psychiatrist to clarify past diagnoses and treatment. - Continue lithium, check trough level tomorrow. Continue quetiapine and increase to 150mg HS as above. 05/16 -We will increase the patient's dose of quetiapine from 150 mg at bedtime to a dose of 50 mg in the morning and 150 mg at bedtime and continue to titrate as tolerated and required. -Currently, the patient says that she feels that her current medications "are the best," and does not wish to change medications. I would recommend that if she fails to respond to quetiapine after reasonable titration we consider risperidone or even haloperidol. -We will continue the cross titration of sertraline with venlafaxine. Today, we will continue venlafaxine 37.5 mg daily but increase the dose of sertraline to 100 mg daily. 05/17 -As noted above, quetiapine has been discontinued today because of the increased dose of quetiapine may be contributing to her excessive sedation, and this circumstance causes us to be reluctant to increase the dose further. In its place, we have begun risperidone 1 mg in the morning and 2 mg at bedtime and will continue and titrate as tolerated and indicated. -May consider further titration of propranolol but will defer for today secondary to concern for increasing fall risk until she appears more alert 05/19 -Consider reducing or discontinuing Effexor but will defer to primary team 05/20 - Continue current medication regimen, pt unwilling for other changes at this time 05/21 - Continue as above, patient verbalizes limited willingness for additional medication changes - She is demonstrating some improvement in her condition, though continues to appear paranoid on the unit 05/23 - Continue as above 05/24 -The patient's most recent lithium level was measured on 05/16/2019. At that time, her level was 0.8. We will repeat her lithium level in the morning and adjust her lithium dosage as indicated. -Continue lithium carbonate 450 mg twice a day. As above, we will adjust her dose schedule of risperidone to address daytime sedation. (3) Pressure ulcer with abrasion, blister, partial thickness skin loss involving epidermis and/or dermis: 05/15 -appreciate hospitalist and wound care recommendations. She has extensive injuries, including pressure ulcers of bilateral elbows, abrasion of multiple sites of upper arms, legs, knees, abdomen, and breasts, and ulcerations on bilateral feet. See nursing and wound care notes for further information, but wounds will be clean, treated, and dressings changed daily as recommended. 05/16 -Wound care is proceeding as recommended by the hospitalist. See nursing and wound care notes for further information. Multiple healing abrasions are evident on the patient's upper extremities. 05/18 -Patient continues to require wound care. She denies increased pain or fever. 05/19 -lab order for BMP and CBC 05/20 - Continue treatment recommendation per wound care team - CBC showing slight improvement in RBC, hemoglobin, and hematocrit - BMP showing slightly low creatinine at 0.58 05/24 -Continue treatment recommendations per wound care team. -Some wounds continue to drain, but all appear to be healing. (4) Anemia: 05/15 -received IV iron on the hospitalist service, with improvement in hemoglobin. She can be followed up as an outpatient, with consideration for iron repletion in the future if needed. 05/17 -Seen and evaluated by the direct support specialist today. Dressings changed, and dressing schedule was simplified. Wounds debrided and appear to be healing. 05/19 -CBC tomorrow a.m. 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 Chief Complaint "things are going better". Review of Systems Sleep Information Total Hours of Sleep: 6.5 Sleep Comments: pt slept in the quiet room. pt on q-15 minute checks Meal Information Percent Meal Consumed - Breakfast: 75 Percent Meal Consumed - Lunch: 95 Percent Meal Consumed - Dinner: 90 Subjective Subjective Patient was seen & assessed and interval progress reviewed with nursing and social work. She felt more energetic yesterday, other than when sitting watching football did not experience slowing of thoughts or desire to sleep. She seems less guarded with staff but somewhat suspicious of how questions are being asked but answers appropriately and is aware of what she needs to accomplish for discharge. Reviewed importance of family meeting and aftercare planning. She states dressing changes are going better/less painful and asked appropriate questions about wound care. Physical Exam Psychiatric Orientation: alert Apperance: appropriately dressed and appropriately groomed Eye Contact: + fair eye contact Motor Behavior: no abnormal motor movements Speech: normal rate/rhythm/volume of speech Affect: + constricted affect "I'm fine" Thought Process: + concrete thought process Thought Content: + preoccupation Suicidal Thoughts: denies suicidal thoughts Homicidal Thoughts: denies homicidal thoughts Hallucinations: no auditory hallucinations and no visual hallucinations Cognition: attention grossly intact and language grossly intact Estimated Intelligence: consistent with education level Insight: + limited insight Judgement: + limited judgement Vital Signs (Past 24 Hours) Last Vital Signs Temp 36.6 C 05/26/19 06:00 Pulse 108 H 05/26/19 06:49 Resp 18 05/26/19 06:00 BP 122/72 05/26/19 06:49 Pulse Ox 96 05/14/19 19:38 Results & Data Current Inpatient Medications Current Inpatient Medications: Current Inpatient Medications Acetaminophen (Tylenol) 650 mg PO Q4H PRN PRN Reason: Headache or Minor Fever Stop: 06/13/19 16:48 Last Admin: 05/17/19 04:40 Dose: 650 mg Documented by: Al Hydrox/Mg Hydrox/Simethicone (Maalox) 30 ml PO Q4H PRN PRN Reason: GI Upset Stop: 06/13/19 16:48 Bacitracin (Bacitracin) 1 appln EXT PRN PRN; Protocol PRN Reason: wounds Stop: 06/14/19 08:08 Benztropine Mesylate (Cogentin) 0.5 mg PO Q6 PRN PRN Reason: Muscle Spasm Stop: 06/25/19 09:10 Bismuth Subsalicylate (Kaopectate) 15 ml PO PRN PRN PRN Reason: Loose Stool Stop: 06/13/19 16:48 Collagenase (Santyl) 1 appln EXT UD PRN PRN Reason: wound dressings Stop: 06/14/19 08:06 Last Admin: 05/16/19 11:19 Dose: 1 appln Documented by: Haloperidol (Haldol) 5 mg PO Q4H PRN PRN Reason: agitation/psychosis Stop: 06/13/19 16:56 Last Admin: 05/21/19 11:16 Dose: 5 mg Documented by: Haloperidol Lactate (Haldol) 5 mg IM Q4H PRN PRN Reason: agitation/psychosis Stop: 06/13/19 16:56 Hydroxyzine HCl (Vistaril) 25 mg PO Q4H PRN PRN Reason: Anxiety Stop: 06/13/19 16:48 Hydroxyzine HCl (Vistaril) 50 mg PO HSZ PRN PRN Reason: Insomnia Stop: 06/13/19 16:48 Last Admin: 05/24/19 01:44 Dose: 50 mg Documented by: [place] Carbonate (Eskalith) 450 mg PO BID TASHA Stop: 06/13/19 20:59 Last Admin: 05/26/19 08:43 Dose: 450 mg Documented by: Lorazepam (Ativan) 1 mg PO Q4H PRN PRN Reason: Anxiety/Agitation Stop: 06/14/19 14:14 Last Admin: 05/17/19 17:51 Dose: 1 mg Documented by: Lorazepam (Ativan) 1 mg IM Q4H PRN PRN Reason: anxiety/agitation Stop: 06/14/19 14:15 Magnesium Hydroxide (Milk Of Magnesia) 30 ml PO DAILY PRN PRN Reason: Constipation Stop: 06/13/19 16:48 Propranolol HCl (Inderal) 20 mg PO BID TASHA Stop: 06/18/19 20:59 Last Admin: 05/26/19 08:43 Dose: 20 mg Documented by: Risperidone (Risperdal) 0.5 mg PO QAM [facility] Stop: 06/24/19 08:59 Last Admin: 05/26/19 08:44 Dose: 0.5 mg Documented by: Risperidone (Risperdal) 3 mg PO HS [facility] Stop: 06/23/19 21:59 Last Admin: 05/25/19 21:24 Dose: 3 mg Documented by: Sodium Chloride ([place] Nasal) 1 - 2 sprays NA PRN PRN PRN Reason: Nasal Dryness/Congestion Stop: 06/13/19 16:48 Venlafaxine HCl (Effexor Extended Release) 75 mg PO QAM [facility] Stop: 06/17/19 08:59 Last Admin: 05/26/19 08:43 Dose: 75 mg Documented by: Zolpidem Tartrate (Ambien) 10 mg PO HS PRN PRN Reason: Sleep Stop: 06/16/19 15:13 Mental Health & Subst Abuse Tx [place] Name of Larriman: none Post Discharge Appointments Primary Care Physician Name Of Family Doctor: unknown Partial or Psych Rehab Name of Partial or Psych Rehab: Andrew Starkey in Intake hours Phone Number of Partial or Psych Rehab: [phone] Date of Appointment at Partial or Psych Rehab: 06/03/19 Time of Appointment at Partial or Psych Rehab: 8:30 a.m. Partial or Psych Rehab Appointment Comment: [place] [phone] Contact Information Discharge Discharge Address: [address] [place] [id number] CPT Code CPT Code 79739
[2019-05-26] MEDS: HYDROCORTISONE 1% CRM 30 GM TUBE EXT SCH ×2 (13:08→21:31)
[2019-05-26] MEDS: risperiDONE 1 MG TABLET PO SCH (21:28)
[2019-05-27] MEDS: VENLAFAXINE HCL XR 75 MG CAPXR PO SCH (08:35)
[2019-05-27] MEDS: risperiDONE 0.5 MG TABLET PO SCH (08:36)
[2019-05-27] MEDS: PROPRANOLOL HCL 20 MG TAB PO SCH (08:36)
[2019-05-27] MEDS: LITHIUM CARBONATE 450 MG TABCR PO SCH (08:36)
[2019-05-27] MEDS: HYDROCORTISONE 1% CRM 30 GM TUBE EXT SCH (08:36)
--- NOTE | 2019-05-27 13:53 | Discharge Summary ---
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 adjusting her medication schedule accordingly. -We will discontinue risperidone 1 mg twice a day and 2 mg at bedtime in favor of 0.5 mg in the morning and 3 mg at bedtime. (2) Bipolar 1 disorder: 05/15 - Get records from outpatient psychiatrist to clarify past diagnoses and treatment. - Continue lithium, check trough level tomorrow. Continue quetiapine and increase to 150mg HS as above. 05/16 -We will increase the patient's dose of quetiapine from 150 mg at bedtime to a dose of 50 mg in the morning and 150 mg at bedtime and continue to titrate as tolerated and required. -Currently, the patient says that she feels that her current medications "are the best," and does not wish to change medications. I would recommend that if she fails to respond to quetiapine after reasonable titration we consider risperidone or even haloperidol. -We will continue the cross titration of sertraline with venlafaxine. Today, we will continue venlafaxine 37.5 mg daily but increase the dose of sertraline to 100 mg daily. 05/17 -As noted above, quetiapine has been discontinued today because of the increased dose of quetiapine may be contributing to her excessive sedation, and this circumstance causes us to be reluctant to increase the dose further. In its place, we have begun risperidone 1 mg in the morning and 2 mg at bedtime and will continue and titrate as tolerated and indicated. -May consider further titration of propranolol but will defer for today secondary to concern for increasing fall risk until she appears more alert 05/19 -Consider reducing or discontinuing Effexor but will defer to primary team 05/20 - Continue current medication regimen, pt unwilling for other changes at this time 05/21 - Continue as above, patient verbalizes limited willingness for additional medication changes - She is demonstrating some improvement in her condition, though continues to appear paranoid on the unit 05/23 - Continue as above 05/24 -The patient's most recent lithium level was measured on 05/16/2019. At that time, her level was 0.8. We will repeat her lithium level in the morning and adjust her lithium dosage as indicated. -Continue lithium carbonate 450 mg twice a day. As above, we will adjust her dose schedule of risperidone to address daytime sedation. (3) Pressure ulcer with abrasion, blister, partial thickness skin loss involving epidermis and/or dermis: 05/15 -appreciate hospitalist and wound care recommendations. She has extensive injuries, including pressure ulcers of bilateral elbows, abrasion of multiple sites of upper arms, legs, knees, abdomen, and breasts, and ulcerations on bilateral feet. See nursing and wound care notes for further information, but wounds will be clean, treated, and dressings changed daily as recommended. 05/16 -Wound care is proceeding as recommended by the hospitalist. See nursing and wound care notes for further information. Multiple healing abrasions are evident on the patient's upper extremities. 05/18 -Patient continues to require wound care. She denies increased pain or fever. 05/19 -lab order for BMP and CBC 05/20 - Continue treatment recommendation per wound care team - CBC showing slight improvement in RBC, hemoglobin, and hematocrit - BMP showing slightly low creatinine at 0.58 05/24 -Continue treatment recommendations per wound care team. -Some wounds continue to drain, but all appear to be healing. (4) Anemia: 05/15 -received IV iron on the hospitalist service, with improvement in hemoglobin. She can be followed up as an outpatient, with consideration for iron repletion in the future if needed. 05/17 -Seen and evaluated by the community service specialist today. Dressings changed, and dressing schedule was simplified. Wounds debrided and appear to be healing. 05/19 -CBC tomorrow a.m. 05/20 - Slight improvements in RBC, hemoglobin, and hematocrit - though these values remain low Mental Health & Subst Abuse Tx Psychiatrist Name of Psychiatrist: Andrew DALTON - see below. Therapist Name of Therapist: Andrew DALTON - see below. Coat Examiner Name of Coat Examiner: none Post Discharge Appointments Primary Care Physician Name Of Family Doctor: [facility] Date of Appointment with PCP: 05/30/19 Time of Appointment with PCP: 2pm Provider Appointment Comment: [address] [place] [address] Partial or Psych Rehab Name of Partial or Psych Rehab: Andrew DALTON - Walk in Intake hours Phone Number of Partial or Psych Rehab: [phone] Date of Appointment at Partial or Psych Rehab: 05/28/19 Time of Appointment at Partial or Psych Rehab: 10:00 a.m. Partial or Psych Rehab Appointment Comment: [place] [id number] Smoking Cessation Counseling Tobacco Cessation Medication Prescribed at Discharge: Not Applicable/Non-Smoker Contact Information Discharge Discharge Address: [address] [place] [id number] Discharge Plan Discharge Items Patient Disposition: Home - Self-Care Reason For Visit: PSYCHOSIS NOS Discharge Diagnosis: Bipolar disorder, type 1 Condition on Discharge: Fair Health Concerns: It is recommended that you follow-up with your PCP for continued wound care after discharge. An appointment has been scheduled for 05/30/19 and 2:00pm. Wound care items have been provided to you for replacement until seen by your PCP. Activity: Resume your previous activity Non-emergency contact: Primary Care Provider, Psychiatrist and Therapist Call non-emergency contact if: you have any medication questions, your symptoms worsen, you have a fever, your wound has increased redness, your wound has increased drainage and your wound pain has increased Follow-up/Referrals: PCP,NO [Primary Care Provider] - Diet: Regular Addtl Attending Provider Instructions: SPECIAL CARE INSTRUCTIONS: 1. Follow through with your scheduled aftercare appointments. If unable to keep an appointment, please call to reschedule. 2. Take your medication only as prescribed. Medication should not be changed or stopped without the approval of your doctor. In the event of worsening symptoms or concerns about side effects, contact your doctor immediately. 3. Utilize new healthy coping skills, anger management skills, and stress management skills learned during your hospitalization. Journal feelings and process them with a support person. Identify stressors or situations that may result in relapse, deterioration or inappropriate behaviors and develop a plan to deal with those issues. 4. If your coping skills are ineffective and you are in crisis, contact your outpatient providers for direction. If unable to reach your providers, please call the CAN HELP LINE AT or go to the closest Emergency Room. 5. Avoid alcohol and un-prescribed drugs. 6. You have been provided with the Mental Health Advance Directives Pamphlet for your review. AFTERCARE APPOINTMENTS: * Please call your insurance company prior to your scheduled appointment to confirm your aftercare providers are covered. Take your insurance information to your appointments. WHO TO CALL AND WHEN: Medical Emergencies: For questions or emergencies related to your hospital stay, please contact the Inpatient Behavioral Health Unit at [phone]. A lokie driver is on-call 13/03 for the Behavioral Health Unit for emergencies At any time you feel your situation is an emergency, you may also call 911 immediately. Your Doctors Instructions noted above were prepared by provider Allison Gardiner PA-C. Pending Studies at Discharge: No Stand-Alone Forms: My [facility] Medications and DC Order Prescriptions: New propranolol 20 mg Tablet 20 mg PO BID 30 Days Qty: 60 RF: 0 lithium carbonate 450 mg Tablet Extended Release 450 mg PO BID 30 Days Qty: 60 RF: 0 risperidone 3 mg tablet 3 mg PO HS 30 Days Qty: 30 RF: 0 risperidone 0.5 mg tablet 0.5 mg PO QAM 30 Days Qty: 30 RF: 0 venlafaxine 75 mg capsule,extended release 24hr 75 mg PO QAM 30 Days Qty: 30 RF: 0 Continued lithium carbonate 450 mg Tablet Extended Release 450 mg PO BID RF: 0 Discontinued venlafaxine 37.5 mg Tablet Extended Release 24hr 112.5 mg PO DAILY RF: 0 quetiapine 100 mg Tablet 100 mg PO HS RF: 0 Discharge Orders: Discharge Order (Routine); Ordered 05/27/19 Ordered By: Allison Gardiner Admission Data Admit Date/Time: 05/14/19 16:41 Attending Provider: Emilie Grider Admit Provider: Emilie Grider Primary Care Provider: PCP,NO Other Providers: Yola Benedict Christine E Other Interventions: Discharge Summary Assessment (RN) Last Done: 05/27/19 14:51 PSY Interdisciplinary Discharge Planning Last Done: 05/27/19 14:43
--- NOTE | 2019-05-27 14:56 | Wound Progress Note ---
Date of Service May 27, 2019 Assessment & Plan (1) Abrasion of multiple sites of upper arm: Wounds healed. (2) Abrasion of multiple sites of lower extremity: Wounds healed. (3) Abrasion of multiple sites of trunk: Wounds healed. (4) Pressure ulcer with abrasion, blister, partial thickness skin loss involving epidermis and/or dermis: The left breast wound has healed. Right breast has a small open area. No debridement indicated. Wound will be dressed with optifoam changed qod. Abdominal wounds have healed. The thigh wounds are healing. Small areas of hyper granular tissue noted. Wounds required chemical cauterization. With the patient's permission and after the application of topical lidocaine the wounds were cauterized with silver nitrate . Patient tolerated the procedure without difficulty. These wounds will be dressed optifoam changed qod. This represents a chemical cauterization of granular tissue. The knee wounds are healed. The multiple wounds on the feet are healed. (5) Stage II pressure ulcer of right elbow: Wound is improved. No debridement indicated. Wound will be dressed with Optifoam change qod. (6) Stage III pressure ulcer of left elbow: Wound is improved. Wound did not require debridement. . Wound will be dressed with Optifoam changed qod. Patient is being discharged today. She has been given instructions regarding the care of her wounds and dressings. She is to have outpatient follow up with her PCP. She can also arrange for follow up at the [facility] if she returns to area and has any needs for continued wound care. Subjective Patient was seen today for reevaluation of multiple pressure ulcers and traumatic wounds to her extremities, torso and abdomen. She is being discharged today and plans to have follow up of her wounds with her PCP . Wounds are being dressed with Aquacel and Tegaderm She voices no complaints regarding her wounds. . Physical Exam Physical Exam: Patient's vital signs were reviewed. She is afebrile, tachycardic Alert in no acute distress. Mood brighter Wound #1 on the abdomen has healed Wound #2 on the left anterior thigh Most of the wound has healed. Few areas of hypergranular tissue. Periwound area is not inflamed. No increased warmth. No drainage or odor present. Wound #3 on the left achilles area is healed. Wound #4 on the right breast measures 0.2x 0.2 x 0.1cm. Wound base shows increased epidermal budding and re epithelization Periwound area is not inflamed. Wound #5, on the left breast has healed. Wound #6 on the left fifth toe has healed Wound #7 on the left great toe has healed Wound #8 on the right fifth toe has healed Wound #9 on the right plantar surface has healed Wound #10 on the left plantar surface has healed Wound #11 on the right elbow has increased epithelialization noted. No odor or drainage. No slough or necrosis. Periwound area is not inflammed. Wound #12 on the left elbow has increase granulation and epidermal budding. No drainage or odor. Periwound area is not inflamed.. Wound #13 on the right forearm has healed. Wound #14 on the left arm has healed. Wound # 15 on the right anterior knee has healed Wound # 16 on the left anterior knee has healed Wound #17 on the right ant thigh has a few areas of hypergranular tissue. No odor or drainage. Periwound area is not inflamed Results & Data Vital Signs (Past 12 Hours) Vital Signs Temp Pulse Resp BP 05/27/19 06:50 90 104/73 05/27/19 06:49 36.6 C 88 18 108/72
== END 2019-05-27 17:05 | disposition home or self-care (01) | DRG 885 ==
LOC: 3S 16:41